=== PATIENT | male | born 1965 | race Caucasian/White ===

== ENCOUNTER 2021-03-22 09:26 | Inpatient (IN) ==
[2021-03-22] MEDS ORDERED: dexAMETHasone**PF** 10 MG/ML VIAL IV ONE (10:25)
[2021-03-22] MEDS ORDERED: ALBUT/IPRATROP 3MG/0.5MG NEB 3 ML VIAL INH STA (10:25)
[2021-03-22] MEDS ORDERED: SODIUM CHLORIDE 0.9% 1000ML 1,000 ML IV SCH ×2 (10:30→14:30)
--- NOTE | 2021-03-22 10:47 | XRay Report ---
XR chest 1V portable CLINICAL HISTORY: Dyspnea. COMPARISON STUDY: No previous studies for comparison. TECHNIQUE: 1 view of the chest FINDINGS: Single frontal view of the chest demonstrates the cardiomediastinal silhouette to be within normal li mits. Patchy interstitial and alveolar opacities are present bilaterally. The findings are most chicho cteristic of a viral type pneumonitis. Covid 19 pneumonia should be excluded. There is no evidence fo r pleural effusion. There is no evidence for vascular congestion. There is no acute osseous pathology . IMPRESSION: Patchy interstitial and alveolar opacities bilaterally characteristic of a viral type pne umonitis and probable Covid 19 pneumonia. ACT 112: Negative or not required by law. Electronically signed by: Ronald Antoine M.D. 03/22/2021 10:46 AM
[2021-03-22 11:28] LABS: Basophils # (auto) 0.02 K/uL (0-0.2); Basophils % (auto) 0.4 %; Hematocrit (blood only) 41.6 % (42-52); Immature Granulocytes # (auto) 0.03 K/uL (0.00-0.02); Immature Granulocytes % (auto) 0.6 %; Lymphocytes # (auto) 0.85 K/uL (1.2-3.4); Lymphocytes % (auto) 16.1 %; Mean Corpuscular Hemoglobin 30.4 pg (25-34); Mean Corpuscular Hgb Conc 36.1 g/dL (32-36); Mean Corpuscular Volume 84.4 fL (80-100); Monocytes % (auto) 11.4 %; Neutrophils # (auto) 3.78 K/uL (1.4-6.5); Neutrophils % (auto) 71.5 %; Platelet Count 143 K/uL (130-400); RDW Coefficient of Variation 13.6 % (11.5-14.5); RDW Standard Deviation 41.8 fL (36.4-46.3); Red Blood Count 4.93 M/uL (4.7-6.1); White Blood Count 5.28 K/uL (4.8-10.8)
[2021-03-22 11:44] LABS: Influenza A virus by PCR Negative (Negative); Influenza B virus by PCR Negative (Negative)
[2021-03-22 11:45] LABS: Partial Thromboplastin Ratio 1.3; Partial Thromboplastin Time 33.2 Seconds (21.0-31.0); Prothrombin Time 9.9 Seconds (9.0-12.0)
[2021-03-22 11:46] LABS: Albumin Level 3.1 gm/dl (3.4-5.0); BUN Creatinine Ratio 14.6 (10-20); Calcium 8.7 mg/dl (8.5-10.1); Creatinine Clr Calc Pharmacy 42.6 ml/min; Est GFR (African American) 41.1 ml/min; Est GFR (Non-African American) 35.5 ml/min; Magnesium 2.4 mg/dl (1.8-2.4); Potassium 3.6 mmol/L (3.5-5.1)
[2021-03-22 11:51] LABS: Albumin Globulin Ratio 0.6 (0.9-2); Bilirubin,Total 0.6 mg/dl (0.2-1); Globulin 5.1 gm/dl (2.5-4.0); Total Protein 8.2 gm/dl (6.4-8.2); Troponin I 0.02 ng/ml (0-0.045)
[2021-03-22] MEDS ORDERED: OPTIRAY 320 125ml IV ONE (12:48)
--- NOTE | 2021-03-22 13:04 | CT Scan Report ---
CT angio chest PE protocol CT DOSE: 541.70 mGycm HISTORY: 55 years-old Male with Dyspnea. Acute shortness of breath. COVID Positive. TECHNIQUE: Multiple CTA images of the chest were obtained after the intravenous administration of 120 ml Optiray. Coronal and sagittal MIPS were obtained from the axial data set and were submitted for review. All measurements were obtained according to NASCET criteria. A dose lowering technique was u tilized adhering to the principles of ALARA. COMPARISON: Chest radiograph of same day FINDINGS: CTA: Moderate cardiomegaly. No pericardial effusion. No thoracic aortic aneurysm or dissection. The segmen gerardo and subsegmental branches of the pulmonary arterial tree are suboptimally evaluated secondary to respiratory motion artifact. No pulmonary emboli identified. CT CHEST: Normal thyroid. Calcified right hilar lymph nodes. There are a few mediastinal lymph nodes which rogerio ure nipple limits of normal at 9-10 mm, likely reactive. Trace pleural effusions. No pneumothorax. Ex tensive bilateral peripheral predominant groundglass and consolidative opacities with bibasilar air b ronchograms. No suspicious pulmonary nodules or masses identified. The central airways are patent. Postoperative changes of the right upper abdominal retroperitoneum. Hepatic steatosis. Unremarkable s oft tissues. There is no acute fracture. IMPRESSION: 1. Cardiomegaly without pulmonary emboli. 2. Extensive bilateral pulmonary opacities compatible with viral pneumonia. 3. Mild reactive mediastinal adenopathy. 4. Hepatic steatosis. ACT 112: Negative or not required by law. The above report was generated using voice recognition software. It may contain grammatical, syntax o r spelling errors. Electronically signed by: Ashwin Calhoun M.D. 03/22/2021 1:02 PM
--- NOTE | 2021-03-22 14:23 | History & Physical Report ---
Date of Service March 22, 2021 Assessment & Plan (1) Pneumonia due to 2019 novel coronavirus: (2) Acute respiratory failure with hypoxia: Plan: #. Acute hypoxic respiratory failure #. COVID-19 #. Community-acquired pneumonia Patient not on home oxygen, not vaccinated against Covid, signs and symptoms since 16 days. Patient complains of productive cough with yellow sputum. Patient requiring BiPAP alternating with high flow nasal cannula oxygen. Admitting pro-Bunny positive. Admitting CTA chest: No PE, extensive bilateral pulmonary opacities. Not a candidate for remdesivir, continue with dexamethasone 03/22 Proning as able, incentive spirometry, flutter valve, Lasix as needed to keep him on yolk spray drier side, BNP Pulmonology consult, since increased respiratory rate/increased work of breathing, likely may need intubation Continue with high flow nasal cannula oxygen alternating with BiPAP We will start him on azithromycin and Rocephin in the line of pneumonia. Follow-up with blood culture. Follow clinically. 2. JOHNNA unknown baseline, unknown if h/o CKD gentle hydration, BNP 124 Monitor BMP daily, if uptrending consider nephrology consult 3. Steatosis 4. Transminitis Transaminitis likely secondary to Covid, no belly pain per patient. Monitor daily, consider GI consult if uptrending. DVT prophylaxis: On Heparin given JOHNNA component. Can change to enoxaparin once JOHNNA resolves. History of Present Illness Chief Complaint: Geovanni DEWEY Primary Care Provider: SHEA Juarez 55-year-old male with PMH of psoriasis, no other significant past medical history presented to our ED 03/22 from [place] inmate with complaint of worsening shortness of breath. Per patient he has had respiratory symptoms with cough and runny nose since 16 days. It seems like he was treated for pneumonia with amoxicillin as an outpatient prior to admission. But since last to 3 days, patient complains of worsening shortness of breath. He also reports a fever over the night associated with sweating. Patient also reports headache. Denies any chest pain/belly pain/palpitations/pain or burning while passing urine/nausea/vomiting/acute changes in his bowel movements/other review of symptoms. Patient denies smoking tobacco, denies consumption of alcohol and use of recreational drugs. 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 No family history of cancer or clot or heart disease per patient. No personal history of clot or heart attack. Allergies Allergy/AdvReac Type Severity Reaction Status Date / Time No Known Allergies Allergy Unverified 03/22/21 10:23 Home Medications Medication Instructions Recorded Confirmed Type amoxicillin 500 mg capsule 500 mg PO TID 03/22/21 03/22/21 History Past Med/Surg History Medical History Patient denies medical problems Psoriasis Family History (Updated 03/22/21 @ 16:23 by Luis Mitchell PA-C) Other Family history non-contributory Social History Smoking Status: Never smoker Second Hand Exposure: No; Do You Dip or Chew Tobacco: No; Hx Alcohol Use: No Hx Substance Use: No Preferred Language: French Communication Ability Comment: 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) Vital Signs (Past 12 Hours) Vital Signs Temp Pulse Resp BP Pulse Ox 03/22/21 14:00 113 H 31 H 140/84 95 03/22/21 13:30 112 H 40 H 139/82 94 03/22/21 13:00 111 H 34 H 138/84 95 03/22/21 12:53 11 L 28 H 98 03/22/21 12:30 107 H 37 H 130/73 94 03/22/21 12:00 106 H 18 90 03/22/21 11:30 72 42 H 140/62 95 03/22/21 11:13 83 45 H 93 03/22/21 11:00 74 44 H 131/85 93 03/22/21 10:58 18 92 03/22/21 10:30 74 38 H 116/75 93 03/22/21 10:00 79 44 H 121/77 94 03/22/21 09:38 37.1 C 78 45 H 137/82 93 11/24/21 09:34 85 40 H 84 L Code Status & VTE Plan VTE Prophylaxis Plan VTE Prophylaxis will be ordered: Yes
--- NOTE | 2021-03-22 15:10 | Emergency Department Note ---
Impression & Plan Pneumonia due to 2019 novel coronavirus ED Provider Note CHIEF COMPLAINT: Shortness of breath, Covid exposure HISTORY OF PRESENT ILLNESS: This 55-year-old male patient presents to the emergency department from the [facility] with complaints of shortness of breath. The patient states he has had a Covid exposure. He developed symptoms approximately 2 weeks ago but over the last 2 days has developed significant shortness of breath. He states he is not vaccinated against Covid or influenza. He has been having fevers, particularly at night and sweating through the bed. He was placed on oxygen yesterday. Today he has noticed some increased work of breathing and rapid respiratory rate. He has been sent to the emergency department for further evaluation. Patient denies any past medical history. REVIEW OF SYSTEMS: A review of systems was performed with positives and pertinent negatives listed in the history of present illness. 10 systems were reviewed and are otherwise negative. ALLERGIES: see below MEDICATIONS: see below PMH: see below SOCIAL HISTORY: see below DDx: Reactive airway disease, Covid, pneumonia, pneumothorax, COPD, CHF, infections, cardiac ischemia, pulmonary embolism, musculoskeletal, gastrointestinal, as well as other pathologies. PHYSICAL EXAM: Vital signs reviewed. General: Acutely ill-appearing 55-year-old male, in no significant distress. HEENT: No scleral icterus, PERRLA, neck supple. Dry mucous membranes Cardiovascular: Regular rate and rhythm, no extra sounds. Pulmonary: Diminished breath sounds bilaterally, crackles to auscultation bilaterally, increased work of breathing. On oxygen mask Abdomen: Soft, nontender, nondistended, positive bowel sounds. Musculoskeletal: Atraumatic, no peripheral edema. Neurologic: Patient awake alert and oriented x 3 Skin: Warm, dry, no rash EMERGENCY DEPARTMENT COURSE/MDM: This patient was evaluated and appeared to be in no significant distress. IV access was obtained and laboratory work was drawn. The patient was placed on a geothermal plant manager and noted to be in a NSR at 78 bpm. Pt's oxygen sats have remained stable on oxymask at 12 L/min. CXR confirms a bilateral patchy PNA. COVID swab is positive. CT chest was performed and is negative for PE. Pt was given IV dexamethazone 6 mg, a duoneb tx and eventually required bipap d/t labored breathing and fatigue. Pt was d/w the hospitalist service for further management. MONITORING: An order for cardiac monitoring was placed and the patient is noted to be in a NSR at 78 beats per minute. RADIOLOGY: see below EKG:NSR at 76 bpm, incomplete RBBB, LAF block, no PVC, no PAC, normal ST segments. QTc 459. DISPOSITION:admit I have personally spent 45 minutes of critical care time in the direct management of this patient. This was a life/limb threatening event. This 45 minutes is in excess of all separately billable procedures. Past Med/Surg History Medical History (Updated 03/22/21 @ 15:10 by Torie Hogue MD) Patient denies medical problems Social History (Updated 03/22/21 @ 15:09 by Torie Hogue MD) Smoking Status: Former smoker Preferred Language: Tamazight Current Living Situation Comment: Skilled Nursing Feels Safe at Home: Yes Allergies Allergies Allergy/AdvReac Type Severity Reaction Status Date / Time No Known Allergies Allergy Unverified 03/22/21 10:23 Home Meds Home Medications Medication Instructions Recorded Confirmed amoxicillin 500 mg capsule 500 mg PO TID 03/22/21 03/22/21 Results & Data (ED) Vital Signs Vital Signs - 24 hr 03/22/21 09:34 03/22/21 09:38 03/22/21 10:00 Temperature 37.1 C Temperature Source Oral Pulse Rate 85 78 79 Pulse Rate from SpO2 Sensor 85 80 Pulse Rhythm Regular Pulse Strength Normal Respiratory Rate 40 H 45 H 44 H Respiratory Effort / Characteristics Labored Respiratory Depth Shallow Respiratory Pattern Regular Blood Pressure 137/82 121/77 Blood Pressure Mean 100 91 Blood Pressure Position Sitting Pulse Oximetry 84 L 93 94 Oxygen Delivery Method Oxymask Oxygen Flow Rate 12 Fraction of Inspired Oxygen Sepsis Recent Fever Within 48 Hours Yes Sepsis New/Unexplained Change in Mental Status No Sepsis Action Taken by Nursing No Action Required 03/22/21 10:30 03/22/21 10:58 03/22/21 11:00 Temperature Temperature Source Pulse Rate 74 74 Pulse Rate from SpO2 Sensor 74 74 Pulse Rhythm Pulse Strength Respiratory Rate 38 H 18 44 H Respiratory Effort / Characteristics Non-Labored Spontaneous Respiratory Depth Respiratory Pattern Blood Pressure 116/75 131/85 Blood Pressure Mean 88 100 Blood Pressure Position Pulse Oximetry 93 92 93 Oxygen Delivery Method Oxymask Oxygen Flow Rate 13 Fraction of Inspired Oxygen Sepsis Recent Fever Within 48 Hours Sepsis New/Unexplained Change in Mental Status Sepsis Action Taken by Nursing 03/22/21 11:13 03/22/21 11:30 03/22/21 12:00 Temperature Temperature Source Pulse Rate 83 72 106 H Pulse Rate from SpO2 Sensor 79 106 H Pulse Rhythm Regular Pulse Strength Respiratory Rate 45 H 42 H 18 Respiratory Effort / Characteristics Respiratory Depth Respiratory Pattern Blood Pressure 140/62 Blood Pressure Mean 88 Blood Pressure Position Pulse Oximetry 93 95 90 Oxygen Delivery Method Oxymask Oxygen Flow Rate 12 Fraction of Inspired Oxygen Sepsis Recent Fever Within 48 Hours Sepsis New/Unexplained Change in Mental Status Sepsis Action Taken by Nursing 03/22/21 12:30 03/22/21 12:53 03/22/21 13:00 Temperature Temperature Source Pulse Rate 107 H 11 L 111 H Pulse Rate from SpO2 Sensor 107 H 111 H Pulse Rhythm Pulse Strength Respiratory Rate 37 H 28 H 34 H Respiratory Effort / Characteristics Spontaneous Respiratory Depth Normal Respiratory Pattern Regular Blood Pressure 130/73 138/84 Blood Pressure Mean 92 102 Blood Pressure Position Pulse Oximetry 94 98 95 Oxygen Delivery Method BiPAP BiPAP Oxygen Flow Rate Fraction of Inspired Oxygen 40 Sepsis Recent Fever Within 48 Hours Sepsis New/Unexplained Change in Mental Status Sepsis Action Taken by Nursing 03/22/21 13:30 03/22/21 14:00 Temperature Temperature Source Pulse Rate 112 H 113 H Pulse Rate from SpO2 Sensor 113 H 113 H Pulse Rhythm Pulse Strength Respiratory Rate 40 H 31 H Respiratory Effort / Characteristics Respiratory Depth Respiratory Pattern Blood Pressure 139/82 140/84 Blood Pressure Mean 101 102 Blood Pressure Position Pulse Oximetry 94 95 Oxygen Delivery Method Oxygen Flow Rate Fraction of Inspired Oxygen Sepsis Recent Fever Within 48 Hours Sepsis New/Unexplained Change in Mental Status Sepsis Action Taken by Assisted Medications Current Medication List: was personally reviewed by me Laboratory Data Attestation: I reviewed the patient's lab results. Result diagrams: 03/22/21 10:58 03/22/21 10:58 Lab Results 03/22/21 03/22/21 03/22/21 Range/Units 10:50 10:50 10:58 WBC 5.28 (4.8-10.8) K/uL RBC 4.93 (4.7-6.1) M/uL Hgb 15.0 (14.0-18.0) g/dL Hct 41.6 L (42-52) % MCV 84.4 (80-100) fL MCH 30.4 (25-34) pg MCHC 36.1 H (32-36) g/dL RDW Std Deviation 41.8 (36.4-46.3) fL RDW Coeff of Emmy 13.6 (11.5-14.5) % Plt Count 143 (130-400) K/uL MPV 10.0 (7.4-10.4) fL Immature Gran % (Auto) 0.6 % Neut % (Auto) 71.5 % Lymph % (Auto) 16.1 % [place] % (Auto) 11.4 % Eos % (Auto) 0.0 % Baso % (Auto) 0.4 % Neut # (Auto) 3.78 (1.4-6.5) K/uL Lymph # (Auto) 0.85 L (1.2-3.4) K/uL [place] # (Auto) 0.60 H (0.11-0.59) K/uL Eos # (Auto) 0.00 (0-0.5) K/uL Baso # (Auto) 0.02 (0-0.2) K/uL Immature Gran # (Auto) 0.03 H (0.00-0.02) K/uL PT (9.0-12.0) Seconds INR (0.9-1.1) APTT (21.0-31.0) Seconds PTT Ratio Sodium (136-145) mmol/L Potassium (3.5-5.1) mmol/L Chloride (98-107) mmol/L Carbon Dioxide (21-32) mmol/L Anion Gap (3-11) BUN (7-18) mg/dl Creatinine (0.6-1.4) mg/dl Est Cr Clr Drug Dosing ml/min Est GFR ( Amer) ml/min Est GFR (Non-Af Amer) ml/min BUN/Creatinine Ratio (10-20) Glucose (70-99) mg/dl Calcium (8.5-10.1) mg/dl Magnesium (1.8-2.4) mg/dl Total Bilirubin (0.2-1) mg/dl AST (15-37) U/L ALT (12-78) U/L Alkaline Phosphatase (45-117) U/L Troponin I (0-0.045) ng/ml NT-Pro-B Natriuret Pep (0-900) pg/ml Total Protein (6.4-8.2) gm/dl Albumin (3.4-5.0) gm/dl Globulin (2.5-4.0) gm/dl Albumin/Globulin Ratio (0.9-2) SARS-CoV-2 (PCR) POSITIVE A* (Negative) Influ A Molecular Assay Negative (Negative) Influ B Molecular Assay Negative (Negative) 03/22/21 03/22/21 03/22/21 Range/Units 10:58 10:58 10:58 WBC (4.8-10.8) K/uL RBC (4.7-6.1) M/uL Hgb (14.0-18.0) g/dL Hct (42-52) % MCV (80-100) fL MCH (25-34) pg MCHC (32-36) g/dL RDW Std Deviation (36.4-46.3) fL RDW Coeff of Emmy (11.5-14.5) % Plt Count (130-400) K/uL MPV (7.4-10.4) fL Immature Gran % (Auto) % Neut % (Auto) % Lymph % (Auto) % [place] % (Auto) % Eos % (Auto) % Baso % (Auto) % Neut # (Auto) (1.4-6.5) K/uL Lymph # (Auto) (1.2-3.4) K/uL [place] # (Auto) (0.11-0.59) K/uL Eos # (Auto) (0-0.5) K/uL Baso # (Auto) (0-0.2) K/uL Immature Gran # (Auto) (0.00-0.02) K/uL PT 9.9 (9.0-12.0) Seconds INR 1.0 (0.9-1.1) APTT 33.2 H (21.0-31.0) Seconds PTT Ratio 1.3 Sodium 138 (136-145) mmol/L Potassium 3.6 (3.5-5.1) mmol/L Chloride 105 (98-107) mmol/L Carbon Dioxide 25 (21-32) mmol/L Anion Gap 8.0 (3-11) BUN 30 H (7-18) mg/dl Creatinine 2.06 H (0.6-1.4) mg/dl Est Cr Clr Drug Dosing 42.6 ml/min Est GFR ( Amer) 41.1 ml/min Est GFR (Non-Af Amer) 35.5 ml/min BUN/Creatinine Ratio 14.6 (10-20) Glucose 113 H (70-99) mg/dl Calcium 8.7 (8.5-10.1) mg/dl Magnesium 2.4 (1.8-2.4) mg/dl Total Bilirubin 0.6 (0.2-1) mg/dl AST 256 H (15-37) U/L ALT 150 H (12-78) U/L Alkaline Phosphatase 65 (45-117) U/L Troponin I 0.020 (0-0.045) ng/ml NT-Pro-B Natriuret Pep 124 (0-900) pg/ml Total Protein 8.2 (6.4-8.2) gm/dl Albumin 3.1 L (3.4-5.0) gm/dl Globulin 5.1 H (2.5-4.0) gm/dl Albumin/Globulin Ratio 0.6 L (0.9-2) SARS-CoV-2 (PCR) (Negative) Influ A Molecular Assay (Negative) Influ B Molecular Assay (Negative) Administered Medications Discontinued Medications Albuterol (Albut/Ipratrop 3mg/0.5mg Neb 3 Ml Vial) 12 ml INH ONE STA Stop: 03/22/21 10:26 Last Admin: 03/22/21 10:54 Dose: 12 ml Documented by: [id number] Dexamethasone Sodium Phosphate (DexamethasonePf 10 Mg/Ml Vial) 6 mg IV NOW ONE Stop: 03/22/21 10:26 Last Admin: 03/22/21 11:03 Dose: 6 mg Documented by: [id number] Sodium Chloride (Nss 1000ml) 1,000 mls @ 999 mls/hr IV .Q1H1M TITI Stop: 03/22/21 11:30 Last Infusion: 03/22/21 12:03 Dose: 0 mls/hr Documented by: [id number] Admin: 03/22/21 11:02 Dose: 999 mls/hr Documented by: [id number] Ioversol (Optiray 320 125ml) 120 ml IV ONCE ONE Stop: 03/22/21 12:49 Last Admin: 03/22/21 12:42 Dose: 120 ml Documented by: [id number] Imaging Data Radiologist's Impression: Chest CTA 03/22/21 10:25 CT angio chest PE protocol CT DOSE: 541.70 mGycm HISTORY: 55 years-old Male with Dyspnea. Acute shortness of breath. COVID Positive. TECHNIQUE: Multiple CTA images of the chest were obtained after the intravenous administration of 120 ml Optiray. Coronal and sagittal MIPS were obtained from the axial data set and were submitted for review. All measurements were obtained according to NASCET criteria. A dose lowering technique was utilized adhering to the principles of ALARA. COMPARISON: Chest radiograph of same day FINDINGS: CTA: Moderate cardiomegaly. No pericardial effusion. No thoracic aortic aneurysm or dissection. The segmental and subsegmental branches of the pulmonary arterial tree are suboptimally evaluated secondary to respiratory motion artifact. No pulmonary emboli identified. CT CHEST: Normal thyroid. Calcified right hilar lymph nodes. There are a few mediastinal lymph nodes which measure nipple limits of normal at 9-10 mm, likely reactive. Trace pleural effusions. No pneumothorax. Extensive bilateral peripheral predominant groundglass and consolidative opacities with bibasilar air bronchograms. No suspicious pulmonary nodules or masses identified. The central airways are patent. Postoperative changes of the right upper abdominal retroperitoneum. Hepatic steatosis. Unremarkable soft tissues. There is no acute fracture. IMPRESSION: 1. Cardiomegaly without pulmonary emboli. 2. Extensive bilateral pulmonary opacities compatible with viral pneumonia. 3. Mild reactive mediastinal adenopathy. 4. Hepatic steatosis. ACT 112: Negative or not required by law. The above report was generated using voice recognition software. It may contain grammatical, syntax or spelling errors. Electronically signed by: Ashwin Calhoun M.D. 03/22/2021 1:02 PM Chest X-Ray 03/22/21 10:25 XR chest 1V portable CLINICAL HISTORY: Dyspnea. COMPARISON STUDY: No previous studies for comparison. TECHNIQUE: 1 view of the chest FINDINGS: Single frontal view of the chest demonstrates the cardiomediastinal silhouette to be within normal limits. Patchy interstitial and alveolar opacities are present bilaterally. The findings are most characteristic of a viral type pneumonitis. Covid 19 pneumonia should be excluded. There is no evidence for pleural effusion. There is no evidence for vascular congestion. There is no acute osseous pathology. IMPRESSION: Patchy interstitial and alveolar opacities bilaterally characteristic of a viral type pneumonitis and probable Covid 19 pneumonia. ACT 112: Negative or not required by law. Electronically signed by: Ronald Antoine M.D. 03/22/2021 10:46 AM Blood Pressure Blood Pressure Findings: Elevated blood pressure Blood Pressure Disposition: Referred to patients primary care provider Discharge Plan Visit Data Chief Complaint: Shortness of Breath/Dyspnea ED Provider: Torie Hogue Discharge Problem: Pneumonia due to 2019 novel coronavirus Forms Stand Alone Forms: My [place] Prescriptions Prescriptions: No Action amoxicillin 500 mg Capsule 500 mg PO TID RF: 0 Referrals Referrals: Larry VALDIVIA [Primary Care Provider] -
--- NOTE | 2021-03-22 16:32 | Pulmonary Consultation ---
Date of Consultation March 22, 2021 Assessment & Plan (1) Hypoxia: (2) Pneumonia due to 2019 novel coronavirus: Attending: Dr. Arita Impression: This is a 55-year-old male from [place]. He has been in [facility] for 39 years. He is currently incarcerated at [facility]. The patient developed shortness of breath and had symptoms approximately 16 days ago. He has been circulating with the other prisoners on a social basis. He does have one cellmate. He spends most of his time in his cell. He denies that his other cellmate is sick. He has had multiple swabs for Covid in the past was never told there were positive. He has no tobacco abuse history. Patient reports a progressive shortness of breath over the last 2 to 3 days. He is brought to the hospital for evaluation and found to have multifocal opacities on CT scan of the chest. Patient does have evidence of cardiomegaly on the CT scan but no evidence of pulmonary emboli. Patient denies any prior history of thrombolic disease. He is not aware that his family members have had any clotting histories in the past. Recommendations: 1. COVID-19/ARDs: * Patient with significant opacities on CT scan of the chest representing viral illness. * Patient was initially put on BiPAP but does better with high flow oxygen. He is currently 50 L/min with an FiO2 of 60% and saturating at 94%. * Initially patient was thought that he would need endotracheal intubation with mechanical ventilation secondary to tachypnea. His respiratory rate has improved slightly with the use of high flow * Patient had initial symptoms 16 days ago. Not sure that there is much role for remdesivir. In addition, patient has elevated LFTs disqualifying him for remdesivir or immunoglobulins * Would recommend dexamethasone 6 mg IV daily * Patient will need airborne precautions for positive COVID-19 findings * Incomplete data - will order CRP, ferritin, procalcitonin 2. Hypoxia: * Patient denies any history of tobacco abuse * Patient with no history of pulmonary disease * Patient denies any previous history of malignancy * Patient does have psoriasis but has not been tested for any other autoimmune disorders * No eosinophils are noted on differential from CBC * Treat underlying Covid 3. DVT prophylaxis: * No contraindication for chemical prophylaxis. Would recommend enoxaparin per Covid protocol Thank you for including us in the care of this patient. Please refer to Dr. Arita's addendum for further recommendations. The pulmonary service will continue to follow this patient during this hospital stay. Should be noted that the iPad was used for infrastructure technician service. Coroner for infrastructure technician was named Cristiane. She was sent to documented report to [facility] of our conversation. The patient stated that all questions were answered to his satisfaction. Turkish is limited to the point where infrastructure technician services are needed. As directed by Dr. Arita to discuss intubation and tracheostomy with the patient. Consent was obtained in the event that this is needed. Yuri Neumann from respiratory therapy was present and will witnessed the consent. Consent was obtained with the services of the infrastructure technician. History of Present Illness Reason for Consultation: Covid/ARDs Requesting Physician: Dr. Nelia Casey Attending Physician: Maria Esther Casey MD History of Present Illness Attending: Dr. Arita This is a 55-year-old male from [place]. He moved to [facility] 39 years ago. He speaks very little Turkish. He has been incarcerated for the past 4 years. Release date of 2022. The patient is an inmate at [facility] and is on the nonvaccinated cellblock. Patient has no significant past medical history other than psoriasis. He expressly denies pulmonary disease, hypertension, diabetes. Due to the patient's limited ability to speak Turkish, the infrastructure technician service was used. Our infrastructure technician was Cristiane. I had a lengthy discussion with the patient through the infrastructure technician. At the completion of the session, the patient stated that all questions were answered to his satisfaction. I emphasized to the patient that the infrastructure technician services available and encouraged him to let us know if he had further questions or needed clarification of any further. Patient reports that he began with symptoms approximately 16 days ago. He has been swabbed for Covid on a regular basis but was never told his results. He assumes that they were negative. He has a cellmate and is able to walk freely in the cell talking to other people. Most of the time his confinement to his ce ll with little other interaction. His cellmate at this time is not sick. The patient denies any other sick contacts. He has not had any visits at the present from the outside but has spoken to family by phone per half-way policy. The patient states that his shortness of breath has been progressive. He now has a cough which is nonproductive. He states that he has had fever and sweats. He denies any rigors. He has never had any kind of illness requiring mechanical ventilation in the past. He has no other significant illness history. He grew up in the country of [place] and denies any exposure to tuberculosis or active tuberculosis disease. He is not vaccinated for Covid. While the patient does have shortness of breath, he denies any chest pain or back pain. He has no diarrhea. He denies nausea or vomiting. He has dyspnea with exertion as well as conversational dyspnea. Deep inspiration results in cough that is nonproductive. He was tried on BiPAP initially 12/6 and did not tolerate it. He was eventually changed to 8/5 and tolerated it with saturations in the low to mid 90s but elevated respiratory rate in the 30s. Patient was changed to high flow oxygen and saturates well with 50 L/min and an FiO2 of 60%. The patient has no other complaints. The patient denies any history of tobacco use. He denies any illicit drug use. He denies any ethanol use. The patient is and . He does not know how to contact his estranged . He request that all contact for consent be made with his daughter in the event that he cannot make decisions on his own. Allergies Allergy/AdvReac Type Severity Reaction Status Date / Time No Known Allergies Allergy Unverified 03/22/21 10:23 Home Medications Medication Instructions Recorded Confirmed Type amoxicillin 500 mg capsule 500 mg PO TID 03/22/21 03/22/21 History Patient History Medical History Patient denies medical problems Psoriasis Family History (Updated 03/22/21 @ 16:23 by Luis Mitchell PA-C) Other Family history non-contributory Social History Smoking Status: Never smoker Second Hand Exposure: No; Do You Dip or Chew Tobacco: No; Hx Alcohol Use: No Hx Substance Use: No Preferred Language: Luxembourgish Communication Ability Comment: Car Salesman service is needed with the language line quality control technician Communication Tools: IPad and Language Line Environmental Journalist Visual Impairment: No Limitations Hearing Ability: Normal Environmental Journalist Required: Yes marital status: Legally Current Living Situation: Other Current Living Situation Comment: Residential How many Children do You have: 1 Feels Safe at Home: Yes Assistive Devices: None Review of Systems Review of Systems: All systems reviewed & are unremarkable except as noted in Subjective Physical Exam Physical Exam: GENERAL : No acute distress. Use of accessory muscles with breathing EYES: No icterus, gaze conjugate NOSE: No evidence of epistaxis MOUTH: No lesions or candidiasis NECK: Supple LUNGS: Breath sounds diminished. No overt bronchospasm or rhonchi. Patient does have some minimal bibasilar rales. HEART: Regular, tachycardic with a rate in the low 100s at the time of my examination ABDOMEN: Soft, NT, ND, BS Present. No rebound tenderness. No guarding. EXTREMITIES: No LE edema, pedal pulses intact and equal bilaterally NEURO: A&OX3. No appreciation of any focal neurological deficits. Results & Data Results & Data ([facility]) Vital Signs (Past 12 Hours) Vital Signs Temp Pulse Pulse Resp BP BP Pulse Ox 03/22/21 16:07 107 H 24 95 03/22/21 15:00 108 H 31 H 140/86 95 03/22/21 14:00 113 H 31 H 140/84 95 03/22/21 13:30 112 H 40 H 139/82 94 03/22/21 13:00 111 H 34 H 138/84 95 03/22/21 12:53 11 L 28 H 98 03/22/21 12:30 107 H 37 H 130/73 94 03/22/21 12:00 106 H 18 90 03/22/21 11:30 72 42 H 140/62 95 03/22/21 11:13 83 45 H 93 03/22/21 11:00 74 44 H 131/85 93 03/22/21 10:58 18 92 03/22/21 10:30 74 38 H 116/75 93 03/22/21 10:00 79 44 H 121/77 94 03/22/21 09:38 37.1 C 78 45 H 137/82 93 03/22/21 09:34 85 40 H 84 L Laboratory Results 03/22/21 10:58 03/22/21 10:58 03/22/21 10:58 Troponin I 0.020 COVID-19 Results 03/22/21 10:50 SARS-CoV-2 (PCR) POSITIVE A* Diagnostic Findings Chest CTA 03/22/21 10:25 CT angio chest PE protocol CT DOSE: 541.70 mGycm HISTORY: 55 years-old Male with Dyspnea. Acute shortness of breath. COVID Positive. TECHNIQUE: Multiple CTA images of the chest were obtained after the intravenous administration of 120 ml Optiray. Coronal and sagittal MIPS were obtained from the axial data set and were submitted for review. All measurements were obtained according to NASCET criteria. A dose lowering technique was utilized adhering to the principles of ALARA. COMPARISON: Chest radiograph of same day FINDINGS: CTA: Moderate cardiomegaly. No pericardial effusion. No thoracic aortic aneurysm or dissection. The segmental and subsegmental branches of the pulmonary arterial tree are suboptimally evaluated secondary to respiratory motion artifact. No pulmonary emboli identified. CT CHEST: Normal thyroid. Calcified right hilar lymph nodes. There are a few mediastinal lymph nodes which measure nipple limits of normal at 9-10 mm, likely reactive. Trace pleural effusions. No pneumothorax. Extensive bilateral peripheral predominant groundglass and consolidative opacities with bibasilar air bronchograms. No suspicious pulmonary nodules or masses identified. The central airways are patent. Postoperative changes of the right upper abdominal retroperitoneum. Hepatic steatosis. Unremarkable soft tissues. There is no acute fracture. IMPRESSION: 1. Cardiomegaly without pulmonary emboli. 2. Extensive bilateral pulmonary opacities compatible with viral pneumonia. 3. Mild reactive mediastinal adenopathy. 4. Hepatic steatosis. ACT 112: Negative or not required by law. The above report was generated using voice recognition software. It may contain grammatical, syntax or spelling errors. Electronically signed by: Ashwin Calhoun M.D. 03/22/2021 1:02 PM Chest X-Ray 03/22/21 10:25 XR chest 1V portable CLINICAL HISTORY: Dyspnea. COMPARISON STUDY: No previous studies for comparison. TECHNIQUE: 1 view of the chest FINDINGS: Single frontal view of the chest demonstrates the cardiomediastinal silhouette to be within normal limits. Patchy interstitial and alveolar opacities are present bilaterally. The findings are most characteristic of a viral type pneumonitis. Covid 19 pneumonia should be excluded. There is no evidence for pleural effusion. There is no evidence for vascular congestion. There is no acute osseous pathology. IMPRESSION: Patchy interstitial and alveolar opacities bilaterally characteristic of a viral type pneumonitis and probable Covid 19 pneumonia. ACT 112: Negative or not required by law. Electronically signed by: Ronald Antoine M.D. 03/22/2021 10:46 AM PG Care Time/CCT Total # of Minutes Spent Total Time Spent with Patient: Total time spent is greater than 50% in coordination of care (as documented) at patient's floor/unit and/or counseling patient: Coding Level of Care Code 05514 Inpt Consult Level 5 Diagnoses Hypoxia R09.02 Pneumonia due to 2019 novel coronavirus U07.1; J12.82 Time Spent (min) 70 Comment 70 minutes including three visits and use of infrastructure technician service
[2021-03-22 17:32] LABS: C Reactive Protein 11.5 mg/dl (0-0.29); Ferritin 959.9 ng/ml (8-388)
[2021-03-22] MEDS ORDERED: AZITHROMYCIN 500 MG in DEXTROSE 5% 250 ML IV ONE (21:00)
[2021-03-22] MEDS ORDERED: MoRPHine SULFATE 2 MG/ML CARP IV STA (21:55)
[2021-03-23] MEDS: HEPARIN SOD 5,000 UNIT/0.5 ML VIAL SQ SCH ×4 (00:20→21:07)
[2021-03-23] MEDS ORDERED: LORazepam 0.5 MG TAB PO STA (03:07)
--- NOTE | 2021-03-23 06:47 | Electrocardiogram Report ---
Test Reason : Blood Pressure : / mmHG Vent. Rate : 076 BPM Atrial Rate : 076 BPM P-R Int : 172 ms QRS Dur : 110 ms QT Int : 408 ms P-R-T Axes : 036 -48 -13 degrees QTc Int : 459 ms Normal sinus rhythm Incomplete right bundle branch block Left anterior fascicular block Abnormal ECG No previous ECGs available Confirmed by Christian Tejada ([id number]) on 03/23/2021 6:47:12 AM Referred By: Larry VALDIVIA Confirmed By:Christian Tejada
[2021-03-23 07:22] LABS: Hematocrit (blood only) 39.9 % (42-52); Hemoglobin 14.2 g/dL (14.0-18.0); Mean Corpuscular Hemoglobin 30.2 pg (25-34); Mean Corpuscular Hgb Conc 35.6 g/dL (32-36); Mean Corpuscular Volume 84.9 fL (80-100); Platelet Count 174 K/uL (130-400); RDW Coefficient of Variation 13.7 % (11.5-14.5); RDW Standard Deviation 42.5 fL (36.4-46.3); White Blood Count 6.14 K/uL (4.8-10.8)
[2021-03-23] MEDS: dexAMETHasone 6 MG in SYRINGE 0 ML IV SCH (08:18)
[2021-03-23 08:19] LABS: Albumin Globulin Ratio 0.5 (0.9-2); Albumin Level 2.7 gm/dl (3.4-5.0); Bilirubin,Total 0.6 mg/dl (0.2-1); Calcium 8.6 mg/dl (8.5-10.1); Est GFR (African American) 72.4 ml/min; Est GFR (Non-African American) 62.4 ml/min; Magnesium 2.2 mg/dl (1.8-2.4); Potassium 4.4 mmol/L (3.5-5.1); Total Protein 7.7 gm/dl (6.4-8.2)
[2021-03-23] MEDS: cefTRIAXone SODIUM 2,000 MG in DEXTROSE 5% 50 ML IV SCH (08:19)
--- NOTE | 2021-03-23 12:02 | Pulmonology Progress Note ---
Date of Service March 23, 2021 Assessment & Plan (1) Hypoxia: (2) Pneumonia due to 2019 novel coronavirus: Plan: Impression: This is a 55-year-old male from [place]. He has been in [facility] for 39 years. He is currently incarcerated at [facility]. The patient developed shortness of breath and had symptoms approximately 16 days ago. He has been circulating with the other prisoners on a social basis. He does have one cellmate. He spends most of his time in his cell. He denies that his other cellmate is sick. He has had multiple swabs for Covid in the past was never told there were positive. He has no tobacco abuse history. Patient re ports a progressive shortness of breath over the last 2 to 3 days. He is brought to the hospital for evaluation and found to have multifocal opacities on CT scan of the chest. Patient does have evidence of cardiomegaly on the CT scan but no evidence of pulmonary emboli. Patient denies any prior history of thrombolic disease. He is not aware that his family members have had any clotting histories in the past. Recommendations: 1. COVID-19/ARDs: Continue dexamethasone 6 mg IV daily. The patient's LFTs are greater than 5 times upper limits of normal with AST which would exclude him from therapy with baricitinib. 2. Hypoxia: Continue high flow. If the patient should fail, could consider reattempting CPAP/BiPAP although the patient states he is very uncomfortable with this and I am not sure that he would tolerate it. Encouraged proning or decubitus positioning. BNP was normal although his x-ray did demonstrate some mild pulmonary venous congestion. We will attempt a judicious dose of Lasix today and follow clinically 3. Patient's procalcitonin was mildly elevated and cannot exclude a potential component of infectious/bacterial pneumonia. He has been on azithromycin. We will add Rocephin and trend procalcitonin over time. He is not been febrile and his white count is normal. 4. Management of the patient's other medical issues is deferred to the primary admitting service. Patient's prognosis is guarded at this point time. He certainly at risk of respiratory deterioration and need for intubation mechanical ventilation. Discussed with bedside nurse and with patient. Admission and Anticipated Discharge Date Admission Date: March 22, 2021 Subjective Patient seen and examined. Has been moved to the Covid unit. He reportedly had an episode of tachypnea and increased work of breathing with hypoxemia earlier today however when I evaluated the patient he was transitioned to high flow and appeared to be breathing comfortably with respiratory rates in the mid to high 20 range. He states he is breathing much better. Review of Systems Review of Systems: All systems reviewed & are unremarkable except as noted in Subjective Physical Exam Constitutional: WD/WN, vitals as above Neck: trachea midline, no thyromegaly Respiratory: + tachypneic; + abnormal respiratory effort and no respiratory distress Auscultation: + crackles and + wheezes Cardiovascular: RRR, no murmur, no edema Gastrointestinal (Abdomen): normal bowel sounds, soft, nontender, no hepatosplenomegaly Musculoskeletal: Extremities: extremities normal to inspection Skin: no rashes, warm and dry Neurologic: Nonfocal exam Lymphatic: no cervical lymphadenopathy Results & Data Results & Data ([facility]) Vital Signs (Past 12 Hours) Vital Signs Temp Pulse Pulse Resp BP Pulse Ox 03/23/21 11:00 69 36 H 93 03/23/21 10:30 65 28 H 92 03/23/21 10:00 79 32 H 95 03/23/21 09:00 37 C 83 44 H 133/83 95 03/23/21 08:00 36.9 C 80 20 143/82 H 91 03/23/21 07:00 67 03/23/21 04:00 76 03/23/21 03:00 37.0 C 84 26 H 121/85 92 Laboratory Results 03/23/21 06:38 03/23/21 06:38 Diagnostic Findings No new imaging PG Care Time/CCT Total # of Minutes Spent Total Time Spent with Patient: Total time spent is greater than 50% in coordination of care (as documented) at patient's floor/unit and/or counseling patient: Coding Level of Care Code 82573 Subseq Hosp Care Lvl 2 Diagnoses Hypoxia R09.02 Pneumonia due to 2019 novel coronavirus U07.1; J12.82
--- NOTE | 2021-03-23 14:37 | Hospitalist Progress Note ---
Date of Service March 23, 2021 Assessment & Plan (1) Pneumonia due to 2019 novel coronavirus: Plan: Not vaccinated Management as below (2) Acute respiratory failure with hypoxia: Plan: Due to COVID-19 virus infection Plan: #. Acute hypoxic respiratory failure #. COVID-19 #. Community-acquired pneumonia Patient not on home oxygen, not vaccinated against Covid, signs and symptoms since 16 days. Patient complains of productive cough with yellow sputum. Patient requiring BiPAP alternating with high flow nasal cannula oxygen. Increased procalcitonin and Has been on azithromycin and Rocephin Await blood culture Admitting CTA chest: No PE, extensive bilateral pulmonary opacities. Not a candidate for remdesivir, or baricitinib due to increasing LFTs Continue with dexamethasone 03/22 Proning as able, incentive spirometry, flutter valve, Lasix as needed to keep him on tobacco drier operator side, BNP Appreciate pulmonary input and recommendation Continue with high flow nasal cannula oxygen alternating with BiPAP Clinically not any better 2. JOHNNA unknown baseline, unknown if h/o CKD gentle hydration, BNP 124 Monitor BMP daily, if uptrending consider nephrology consult Creatinine has been improving 3. Steatosis 4. Transminitis Transaminitis likely secondary to Covid, no belly pain per patient. Monitor daily, consider GI consult if uptrending. Transaminitis has been improving to DVT prophylaxis: On Heparin given JOHNNA component. Can change to enoxaparin once JOHNNA resolves. Admission and Anticipated Discharge Date Admission Date: March 22, 2021 Subjective 03/23/2021 The patient was seen and examined in telemetry unit and in the Covid room He remains very shortness of breath and has not improved since admission He is on the verge of intubation Denies any pain, palpitation, any abdominal pain, nausea or vomiting Review of Systems Review of Systems: All systems reviewed and are unremarkable except as noted below Respiratory: Moderate to severe shortness of breath at rest Musculoskeletal: Generally very weak and lethargic Physical Exam Physical Exam: Lying in bed with distress secondary to shortness of breath Constitutional: well developed, well nourished, + ill appearing and average body habitus Eyes: PERRL, conjunctivae normal, anicteric sclerae ENMT: external ear and nose normal, oropharynx normal Respiratory: + respiratory distress (Moderate shortness of breath at rest) and + labored breathing Auscultation: + diminished lung sounds and + crackles (Minimal crackles at the bases) Cardiovascular: Rate/Rhythm: regular rate and regular rhythm Heart Sounds: normal S1 and normal S2; no murmur Extremities: no edema Gastrointestinal (Abdomen): Inspection/Auscultation: normal bowel sounds; abdomen not distended Percussion/Palpation: abdomen soft; abdomen nontender Musculoskeletal: No acute arthritis in any joint Neurologic: Alert, awake and oriented x3. Generally weak and lethargic Psychiatric: A+Ox3, euthymic affect Lymphatic: no cervical or axillary lymphadenopathy Results & Data Results & Data ([facility]) Vital Signs (Past 12 Hours) Vital Signs Temp Pulse Pulse Resp BP Pulse Ox 03/23/21 12:07 36.6 C 73 30 H 122/81 94 03/23/21 11:00 69 36 H 93 03/23/21 10:30 65 28 H 92 03/23/21 10:00 79 32 H 95 03/23/21 09:00 37 C 83 44 H 133/83 95 03/23/21 08:00 36.9 C 80 20 143/82 H 91 03/23/21 07:00 67 03/23/21 04:00 76 03/23/21 03:00 37.0 C 84 26 H 121/85 92 Laboratory Results Short CBC 03/23/21 Range/Units 06:38 WBC 6.14 (4.8-10.8) K/uL Hgb 14.2 (14.0-18.0) g/dL Hct 39.9 L (42-52) % Plt Count 174 (130-400) K/uL BMP 03/23/21 06:38 Sodium 145 D Potassium 4.4 D Chloride 113 H Carbon Dioxide 23 BUN 22 H Creatinine 1.29 D Glucose 127 H Calcium 8.6 Liver Function 03/23/21 Range/Units 06:38 Total Bilirubin 0.6 (0.2-1) mg/dl AST 182 H (15-37) U/L ALT 120 H (12-78) U/L Alkaline Phosphatase 60 (45-117) U/L Albumin 2.7 L (3.4-5.0) gm/dl Medications Administered Current Inpatient Medications Azithromycin (Azithromycin 250 Mg Tab) 250 mg PO QAM TITI Stop: 03/27/21 08:59 Heparin Sodium (Porcine) (Heparin Sod 5,000 Unit/0.5 Ml Vial) 7,500 units SQ Q8 TITI Stop: 04/21/21 21:59 Last Admin: 03/23/21 08:19 Dose: 7,500 units Documented by: Dexamethasone 6 mg/ Syringe 1.5 mls @ 1 mls/min IV Q24H TITI Stop: 04/22/21 09:59 Last Admin: 03/23/21 08:18 Dose: 1 mls/min Documented by: Ceftriaxone Sodium 2,000 mg/ (Dextrose) 70 mls @ 100 mls/hr IV DAILY TITI; Protocol Stop: 03/30/21 08:59 Last Infusion: 03/23/21 09:37 Dose: Infused Documented by:
[2021-03-23] MEDS ORDERED: AZITHROMYCIN 250 MG in DEXTROSE 5% 250 ML IV SCH (20:30)
[2021-03-23] MEDS ORDERED: MoRPHine SULFATE 2 MG/ML CARP IV STA (22:49)
[2021-03-24] MEDS ORDERED: KETOROLAC TROMETHAMINE 15 MG/ML VIAL IV ONE ×2 (05:00→20:11)
[2021-03-24] MEDS: HEPARIN SOD 5,000 UNIT/0.5 ML VIAL SQ SCH ×3 (05:36→21:47)
[2021-03-24 08:22] LABS: Basophils # (auto) 0.04 K/uL (0-0.2); Basophils % (auto) 0.5 %; Hematocrit (blood only) 40.1 % (42-52); Hemoglobin 13.9 g/dL (14.0-18.0); Immature Granulocytes # (auto) 0.07 K/uL (0.00-0.02); Immature Granulocytes % (auto) 0.9 %; Lymphocytes # (auto) 1.08 K/uL (1.2-3.4); Lymphocytes % (auto) 14.5 %; Mean Corpuscular Hgb Conc 34.7 g/dL (32-36); Mean Corpuscular Volume 86.4 fL (80-100); Mean Platelet Volume 10.3 fL (7.4-10.4); Monocytes # (auto) 1.64 K/uL (0.11-0.59); Neutrophils # (auto) 4.62 K/uL (1.4-6.5); Neutrophils % (auto) 62.1 %; Platelet Count 233 K/uL (130-400); RDW Coefficient of Variation 14.2 % (11.5-14.5); RDW Standard Deviation 44.7 fL (36.4-46.3); Red Blood Count 4.64 M/uL (4.7-6.1); White Blood Count 7.45 K/uL (4.8-10.8)
[2021-03-24 09:04] LABS: Albumin Level 2.6 gm/dl (3.4-5.0); BUN Creatinine Ratio 23.7 (10-20); Calcium 8.5 mg/dl (8.5-10.1); Creatinine Clr Calc Pharmacy 71.3 ml/min; Est GFR (African American) 76.7 ml/min; Est GFR (Non-African American) 66.1 ml/min; Magnesium 2.3 mg/dl (1.8-2.4); Potassium 4.6 mmol/L (3.5-5.1)
[2021-03-24 09:06] LABS: Albumin Globulin Ratio 0.5 (0.9-2); Bilirubin,Total 0.7 mg/dl (0.2-1); Globulin 4.9 gm/dl (2.5-4.0); Phosphorus 2.9 mg/dl (2.5-4.9); Total Protein 7.5 gm/dl (6.4-8.2)
[2021-03-24] MEDS: cefTRIAXone SODIUM 2,000 MG in DEXTROSE 5% 50 ML IV SCH (09:29)
[2021-03-24] MEDS: dexAMETHasone 6 MG in SYRINGE 0 ML IV SCH (09:29)
[2021-03-24] MEDS: AZITHROMYCIN 250 MG TAB PO SCH (09:30)
--- NOTE | 2021-03-24 10:41 | Pulmonology Progress Note ---
Date of Service March 24, 2021 Assessment & Plan (1) Hypoxia: (2) Pneumonia due to 2019 novel coronavirus: Plan: Impression: This is a 55-year-old male with Covid and hypoxemic respiratory failure Recommendations: 1. COVID-19/ARDs: Continue dexamethasone 6 mg IV daily. The patient's LFTs are greater than 5 times upper limits of normal with AST which would exclude him from therapy with baricitinib. 2. Hypoxia: Continue high flow. Patient appears to be improving. Would keep him on the dry side. Continue efforts at proning or decubitus positioning. 3. Patient's procalcitonin was mildly elevated and cannot exclude a potential component of infectious/bacterial pneumonia. Continue azithromycin and Rocephin and trend procalcitonin over time. Anticipate 5-day course of antimicrobial therapies 4. Management of the patient's other medical issues is deferred to the primary admitting service. Patient appears clinically responding to therapy and improved. Pulmonary medicine will sign off at this point time. Feel free to contact us should the patient's clinical condition change. Admission and Anticipated Discharge Date Admission Date: March 22, 2021 Subjective EMR reviewed. Patient was seen the bedside but he was sleeping and I elected to not arouse him. His oxygen saturations appear improved. Discussed with the clinical nurse at bedside. He appears comfortable. Review of Systems Review of Systems: Deferred as the patient was sleeping and I elected to not wake him Physical Exam Physical Exam: Exam limited. The patient has had a decrease in his oxygen requirement overnight. He appears to be breathing comfortably without evidence of increased work of breathing or paradoxical respiratory movements. Results & Data Results & Data ([facility]) Vital Signs (Past 12 Hours) Vital Signs Temp Pulse Resp BP BP Pulse Ox 03/24/21 08:10 64 22 91 03/24/21 07:53 37.1 C 59 L 28 H 113/62 95 03/24/21 04:36 76 26 H 89 L 03/24/21 04:28 37.4 C 68 18 129/83 88 L 03/24/21 00:20 37.4 C 71 18 126/79 92 03/23/21 22:53 76 20 94 Laboratory Results 03/24/21 07:20 03/24/21 07:20 Diagnostic Findings no new imaging PG Care Time/CCT Total # of Minutes Spent Total Time Spent with Patient: Total time spent is greater than 50% in coordination of care (as documented) at patient's floor/unit and/or counseling patient: Coding Level of Care Code 60294 Subseq Hosp Care Lvl 2 Diagnoses Hypoxia R09.02 Pneumonia due to 2019 novel coronavirus U07.1; J12.82
--- NOTE | 2021-03-24 15:09 | Hospitalist Progress Note ---
Date of Service March 24, 2021 Assessment & Plan (1) Pneumonia due to 2019 novel coronavirus: Plan: Not vaccinated Management as below (2) Acute respiratory failure with hypoxia: Plan: Due to COVID-19 virus infection Plan: #. Acute hypoxic respiratory failure #. COVID-19 #. Community-acquired pneumonia Patient not on home oxygen, not vaccinated against Covid, signs and symptoms since 16 days. Patient complains of productive cough with yellow sputum. Patient requiring BiPAP alternating with high flow nasal cannula oxygen. Increased procalcitonin and Has been on azithromycin and Rocephin Await blood culture Admitting CTA chest: No PE, extensive bilateral pulmonary opacities. Not a candidate for remdesivir, or baricitinib due to increasing LFTs Continue with dexamethasone 03/22 Proning as able, incentive spirometry, flutter valve, Lasix as needed to keep him on rice drier side, BNP Appreciate pulmonary input and recommendation Continue with high flow nasal cannula oxygen alternating with BiPAP A little better today requiring high flow oxygen via nasal cannula We will continue current management 2. JOHNNA unknown baseline, unknown if h/o CKD gentle hydration, BNP 124 Monitor BMP daily, if uptrending consider nephrology consult Creatinine has been improving 3. Steatosis 4. Transminitis Transaminitis likely secondary to Covid, no belly pain per patient. Monitor daily, consider GI consult if uptrending. Transaminitis has been improving DVT prophylaxis: On Heparin given JOHNNA component. Can change to enoxaparin once JOHNNA resolves. Admission and Anticipated Discharge Date Admission Date: March 22, 2021 Subjective 03/23/2021 The patient was seen and examined in telemetry unit and in the Covid room He remains very shortness of breath and has not improved since admission He is on the verge of intubation Denies any pain, palpitation, any abdominal pain, nausea or vomiting 03/24/2021 The patient was seen and examined in telemetry unit and in the Covid room He feels clinically a little better but gets tired with more shortness of breath with minimal exertion Denies any abdominal pain, nausea or vomiting Review of Systems Review of Systems: All systems reviewed and are unremarkable except as noted below Respiratory: Moderate to severe shortness of breath at rest Musculoskeletal: Generally very weak and lethargic Physical Exam Physical Exam: Lying in bed with distress secondary to shortness of breath Constitutional: well developed, well nourished, + ill appearing and average body habitus Eyes: PERRL, conjunctivae normal, anicteric sclerae ENMT: external ear and nose normal, oropharynx normal Respiratory: + respiratory distress (Moderate shortness of breath at rest) and + labored breathing Auscultation: + diminished lung sounds and + crackles (Minimal crackles at the bases) Cardiovascular: Rate/Rhythm: regular rate and regular rhythm Heart Sounds: normal S1 and normal S2; no murmur Extremities: no edema Gastrointestinal (Abdomen): Inspection/Auscultation: normal bowel sounds; abdomen not distended Percussion/Palpation: abdomen soft; abdomen nontender Musculoskeletal: No acute arthritis in any joint Neurologic: Alert, awake and oriented x3 Psychiatric: A+Ox3, euthymic affect Lymphatic: no cervical or axillary lymphadenopathy Results & Data Results & Data ([facility]) Vital Signs (Past 12 Hours) Vital Signs Temp Pulse Resp BP BP Pulse Ox 03/24/21 14:14 20 89 L 03/24/21 12:11 37.1 C 61 30 H 124/84 03/24/21 11:28 81 22 89 L 03/24/21 08:10 64 22 91 03/24/21 07:53 37.1 C 59 L 28 H 113/62 95 03/24/21 04:36 76 26 H 89 L 03/24/21 04:28 37.4 C 68 18 129/83 88 L Diagnostic Findings Short CBC 03/24/21 Range/Units 07:20 WBC 7.45 (4.8-10.8) K/uL Hgb 13.9 L (14.0-18.0) g/dL Hct 40.1 L (42-52) % Plt Count 233 (130-400) K/uL BMP 03/24/21 07:20 Sodium 145 Potassium 4.6 Chloride 113 H Carbon Dioxide 24 BUN 29 H Creatinine 1.23 Glucose 115 H Calcium 8.5 Liver Function 03/24/21 Range/Units 07:20 Total Bilirubin 0.7 (0.2-1) mg/dl AST 153 H (15-37) U/L ALT 104 H (12-78) U/L Alkaline Phosphatase 61 (45-117) U/L Albumin 2.6 L (3.4-5.0) gm/dl Medications Administered Current Inpatient Medications Azithromycin (Azithromycin 250 Mg Tab) 250 mg PO [facility] [place] Stop: 03/27/21 08:59 Last Admin: 03/24/21 09:30 Dose: 250 mg Documented by: Heparin Sodium (Porcine) (Heparin Sod 5,000 Unit/0.5 Ml Vial) 7,500 units SQ Q8 TITI Stop: 04/21/21 21:59 Last Admin: 03/24/21 05:36 Dose: 7,500 units Documented by: Dexamethasone 6 mg/ Syringe 1.5 mls @ 1 mls/min IV Q24H TITI Stop: 04/22/21 09:59 Last Admin: 03/24/21 09:29 Dose: 1 mls/min Documented by: Ceftriaxone Sodium 2,000 mg/ (Dextrose) 70 mls @ 100 mls/hr IV DAILY [facility]; Protocol Stop: 03/30/21 08:59 Last Infusion: 03/24/21 10:39 Dose: Infused Documented by:
[2021-03-24] MEDS: SODIUM CHLORIDE 0.65% NA SOLN 45 ML (OCEAN) SCH (21:47)
[2021-03-25] MEDS ORDERED: LORazepam 0.5 MG TAB PO STA (05:19)
[2021-03-25] MEDS: HEPARIN SOD 5,000 UNIT/0.5 ML VIAL SQ SCH ×2 (05:38→14:02)
[2021-03-25 07:40] LABS: Albumin Level 2.8 gm/dl (3.4-5.0); BUN Creatinine Ratio 28.4 (10-20); Calcium 8.4 mg/dl (8.5-10.1); Est GFR (African American) 77.4 ml/min; Est GFR (Non-African American) 66.8 ml/min; Potassium 4.4 mmol/L (3.5-5.1)
[2021-03-25 07:43] LABS: Albumin Globulin Ratio 0.5 (0.9-2); Bilirubin,Total 0.8 mg/dl (0.2-1); Globulin 5.2 gm/dl (2.5-4.0)
[2021-03-25] MEDS: AZITHROMYCIN 250 MG TAB PO SCH (08:38)
[2021-03-25] MEDS: cefTRIAXone SODIUM 2,000 MG in DEXTROSE 5% 50 ML IV SCH (08:39)
[2021-03-25] MEDS: SODIUM CHLORIDE 0.65% NA SOLN 45 ML (OCEAN) SCH ×2 (08:42→20:54)
[2021-03-25] MEDS: dexAMETHasone 6 MG in SYRINGE 0 ML IV SCH (09:45)
--- NOTE | 2021-03-25 14:31 | Hospitalist Progress Note ---
Date of Service March 25, 2021 Assessment & Plan (1) Pneumonia due to 2019 novel coronavirus: Plan: Not vaccinated Management as below (2) Acute respiratory failure with hypoxia: Plan: Due to COVID-19 virus infection Plan: #. Acute hypoxic respiratory failure #. COVID-19 #. Community-acquired pneumonia Patient not on home oxygen, not vaccinated against Covid, signs and symptoms since 16 days. Patient complains of productive cough with yellow sputum. Patient requiring BiPAP alternating with high flow nasal cannula oxygen. Increased procalcitonin and Has been on azithromycin and Rocephin Await blood culture Admitting CTA chest: No PE, extensive bilateral pulmonary opacities. Not a candidate for remdesivir, or baricitinib due to increasing LFTs Continue with dexamethasone 03/22 Proning as able, incentive spirometry, flutter valve, Lasix as needed to keep him on milk drier side, BNP Appreciate pulmonary input and recommendation Continue with high flow nasal cannula oxygen alternating with BiPAP Clinically better but is still requiring high flow oxygen to maintain saturation We will continue current management 2. JOHNNA unknown baseline, unknown if h/o CKD gentle hydration, BNP 124 Monitor BMP daily, if uptrending consider nephrology consult Creatinine has been improving 3. Steatosis 4. Transminitis Transaminitis likely secondary to Covid, no belly pain per patient. Monitor daily, consider GI consult if uptrending. Transaminitis has been improving-AST 152 and ALT 116 and alkaline phos 75 as of 03/25/2021 DVT prophylaxis: On Heparin given JOHNNA component. Can change to enoxaparin once JOHNNA resolves. We will change to Lovenox Admission and Anticipated Discharge Date Admission Date: March 22, 2021 Subjective 03/23/2021 The patient was seen and examined in telemetry unit and in the Covid room He remains very shortness of breath and has not improved since admission He is on the verge of intubation Denies any pain, palpitation, any abdominal pain, nausea or vomiting 03/24/2021 The patient was seen and examined in telemetry unit and in the Covid room He feels clinically a little better but gets tired with more shortness of breath with minimal exertion Denies any abdominal pain, nausea or vomiting 03/25/2021 The patient was seen and examined in telemetry unit and in the Covid room He has been feeling much better still requires high flow oxygen Has cough and is generally very weak and lethargic Review of Systems Review of Systems: All systems reviewed and are unremarkable except as noted below Respiratory: Moderate to severe shortness of breath at rest Musculoskeletal: Generally very weak and lethargic Physical Exam Physical Exam: Lying in bed with distress secondary to shortness of breath Constitutional: well developed, well nourished, + ill appearing and average body habitus Eyes: PERRL, conjunctivae normal, anicteric sclerae ENMT: external ear and nose normal, oropharynx normal Neck: trachea midline, no thyromegaly Respiratory: + respiratory distress (Moderate shortness of breath at rest) and + labored breathing Auscultation: + diminished lung sounds and + crackles (Minimal crackles at the bases) Cardiovascular: Rate/Rhythm: regular rate and regular rhythm Heart Sounds: normal S1 and normal S2; no murmur Extremities: no edema Gastrointestinal (Abdomen): Inspection/Auscultation: normal bowel sounds; abdomen not distended Percussion/Palpation: abdomen soft; abdomen nontender Musculoskeletal: No acute arthritis in any joint Neurologic: Alert, awake and oriented x3 Psychiatric: A+Ox3, euthymic affect Lymphatic: no cervical or axillary lymphadenopathy Results & Data Results & Data ([facility]) Vital Signs (Past 12 Hours) Vital Signs Temp Pulse Resp BP Pulse Ox 03/25/21 14:26 59 L 24 90 03/25/21 11:21 56 L 24 92 03/25/21 11:16 36.8 C 57 L 21 124/70 92 03/25/21 07:48 37.1 C 66 23 146/92 H 93 03/25/21 06:09 65 28 H 94 03/25/21 03:03 36.8 C 64 20 138/88 91 Laboratory Results [facility] 03/25/21 06:18 Sodium 142 Potassium 4.4 Chloride 109 H Carbon Dioxide 25 BUN 35 H Creatinine 1.22 Glucose 110 H Calcium 8.4 L Liver Function 03/25/21 Range/Units 06:18 Total Bilirubin 0.8 (0.2-1) mg/dl AST 152 H (15-37) U/L ALT 116 H (12-78) U/L Alkaline Phosphatase 75 (45-117) U/L Albumin 2.8 L (3.4-5.0) gm/dl Medications Administered Current Inpatient Medications [facility] ([facility] 250 Mg Tab) [facility] [place] Stop: 03/27/21 08:59 Last Admin: 03/25/21 08:38 Dose: 250 mg Documented by: Heparin Sodium (Porcine) (Heparin Sod 5,000 Unit/0.5 Ml Vial) 7,500 units SQ Q8 TITI Stop: 04/21/21 21:59 Last Admin: 03/25/21 14:02 Dose: 7,500 units Documented by: Dexamethasone 6 mg/ Syringe 1.5 mls @ 1 mls/min IV Q24H TITI Stop: 04/22/21 09:59 Last Admin: 03/25/21 09:45 Dose: 1 mls/min Documented by: Ceftriaxone Sodium 2,000 mg/ (Dextrose) 70 mls @ 100 mls/hr IV DAILY [facility]; Protocol Stop: 03/30/21 08:59 Last Infusion: 03/25/21 09:29 Dose: Infused Documented by: Sodium Chloride (Sodium Chloride 0.65% Na Soln 45 Ml ([place])) 2 sprays NA BID TIIT Stop: 04/23/21 20:59 Last Admin: 03/25/21 08:42 Dose: Not Given Documented by:
[2021-03-25] MEDS ORDERED: ENOXAPARIN INJ 40 MG/0.4 ML SYR SQ ONE (14:32)
[2021-03-25] MEDS: ENOXAPARIN INJ 40 MG/0.4 ML SYR SQ SCH (20:54)
[2021-03-25] MEDS: MELATONIN 3 MG TAB PO PRN (22:01)
[2021-03-26] MEDS: cefTRIAXone SODIUM 2,000 MG in DEXTROSE 5% 50 ML IV SCH (09:05)
[2021-03-26] MEDS: AZITHROMYCIN 250 MG TAB PO SCH (09:05)
[2021-03-26] MEDS: ENOXAPARIN INJ 40 MG/0.4 ML SYR SQ SCH ×2 (09:06→20:12)
[2021-03-26] MEDS: dexAMETHasone 6 MG in SYRINGE 0 ML IV SCH (09:07)
[2021-03-26] MEDS: SODIUM CHLORIDE 0.65% NA SOLN 45 ML (OCEAN) SCH ×2 (09:07→20:13)
--- NOTE | 2021-03-26 14:44 | Hospitalist Progress Note ---
Date of Service March 26, 2021 Assessment & Plan (1) Pneumonia due to 2019 novel coronavirus: Plan: Not vaccinated Management as below (2) Acute respiratory failure with hypoxia: Plan: Due to COVID-19 virus infection Plan: #. Acute hypoxic respiratory failure #. COVID-19 #. Community-acquired pneumonia Patient not on home oxygen, not vaccinated against Covid, signs and symptoms since 16 days. Patient complains of productive cough with yellow sputum. Patient requiring BiPAP alternating with high flow nasal cannula oxygen. Increased procalcitonin and Has been on azithromycin and Rocephin Await blood culture Admitting CTA chest: No PE, extensive bilateral pulmonary opacities. Not a candidate for remdesivir, or baricitinib due to increasing LFTs Continue with dexamethasone 03/22 Proning as able, incentive spirometry, flutter valve, Lasix as needed to keep him on pulp drier side, BNP Appreciate pulmonary input and recommendation Continue with high flow nasal cannula oxygen alternating with BiPAP Clinically better but is still requiring high flow oxygen to maintain saturation Still has significant shortness of breath at rest and is requiring high flow oxygen at 60 L with 95% FiO2 2. JOHNNA unknown baseline, unknown if h/o CKD gentle hydration, BNP 124 Monitor BMP daily, if uptrending consider nephrology consult Creatinine has been improving-creatinine has been normalized 3. Steatosis 4. Transminitis Transaminitis likely secondary to Covid, no belly pain per patient. Monitor daily, consider GI consult if uptrending. Transaminitis has been improving-AST 152 and ALT 116 and alkaline phos 75 as of 03/25/2021 DVT prophylaxis: On Heparin given JOHNNA component. Can change to enoxaparin once JOHNNA resolves. We will change to Lovenox Admission and Anticipated Discharge Date Admission Date: March 22, 2021 Subjective 03/23/2021 The patient was seen and examined in telemetry unit and in the Covid room He remains very shortness of breath and has not improved since admission He is on the verge of intubation Denies any pain, palpitation, any abdominal pain, nausea or vomiting 03/24/2021 The patient was seen and examined in telemetry unit and in the Covid room He feels clinically a little better but gets tired with more shortness of breath with minimal exertion Denies any abdominal pain, nausea or vomiting 03/25/2021 The patient was seen and examined in telemetry unit and in the Covid room He has been feeling much better still requires high flow oxygen Has cough and is generally very weak and lethargic 03/26/2021 The patient was seen and examined in telemetry unit and in the Covid room He feels fine but still requiring very high flow oxygen to maintain saturation He has cough and after coughing he gets very short of breath Review of Systems Review of Systems: All systems reviewed and are unremarkable except as noted below Respiratory: Moderate to severe shortness of breath at rest Musculoskeletal: Generally very weak and lethargic Physical Exam Physical Exam: Lying in bed with distress secondary to shortness of breath Constitutional: well developed, well nourished, + ill appearing and average body habitus Eyes: PERRL, conjunctivae normal, anicteric sclerae ENMT: external ear and nose normal, oropharynx normal Neck: trachea midline, no thyromegaly Respiratory: + respiratory distress (Moderate shortness of breath at rest) and + labored breathing Auscultation: + diminished lung sounds and + crackles (Minimal crackles at the bases) Cardiovascular: Rate/Rhythm: regular rate and regular rhythm Heart Sounds: normal S1 and normal S2; no murmur Extremities: no edema Gastrointestinal (Abdomen): Inspection/Auscultation: normal bowel sounds; abdomen not distended Percussion/Palpation: abdomen soft; abdomen nontender Musculoskeletal: No acute arthritis in any joint Neurologic: Alert, awake and oriented x3. Generally very weak and lethargic Psychiatric: A+Ox3, euthymic affect Lymphatic: no cervical or axillary lymphadenopathy Results & Data Results & Data ([facility]) Vital Signs (Past 12 Hours) Vital Signs Temp Pulse Pulse Pulse Resp BP Pulse Ox 03/26/21 11:26 69 28 H 94 03/26/21 09:44 60 03/26/21 07:42 37.1 C 65 20 143/84 H 90 03/26/21 07:15 68 28 H 91 03/26/21 03:07 63 18 88 L 03/26/21 03:00 36.8 C 63 20 138/79 90 Medications Administered Current Inpatient Medications Azithromycin (Az[facility]romycin 250 Mg Tab) [facility] [place] Stop: 03/27/21 08:59 Last Admin: 03/26/21 09:05 Dose: 250 mg Documented by: Enoxaparin Sodium (Enoxaparin Inj 40 Mg/0.4 Ml Syr) 40 mg SQ Q12 TITI Stop: 04/24/21 20:59 Last Admin: 03/26/21 09:06 Dose: 40 mg Documented by: Dexamethasone 6 mg/ Syringe 1.5 mls @ 1 mls/min IV Q24H TITI Stop: 04/22/21 09:59 Last Admin: 03/26/21 09:07 Dose: 1 mls/min Documented by: Ceftriaxone Sodium 2,000 mg/ (Dextrose) 70 mls @ 100 mls/hr IV DAILY [facility]; Protocol Stop: 03/30/21 08:59 Last Infusion: 03/26/21 09:50 Dose: Infused Documented by: Melatonin (Melatonin 3 Mg Tab) 6 mg PO HS PRN PRN Reason: Sleep Stop: 04/24/21 21:42 Last Admin: 03/25/21 22:01 Dose: 6 mg Documented by: Sodium Chloride (Sodium Chloride 0.65% Na Soln 45 Ml ([place])) 2 sprays NA BID TITI Stop: 04/23/21 20:59 Last Admin: 03/26/21 09:07 Dose: Not Given Documented by:
[2021-03-26] MEDS: MELATONIN 3 MG TAB PO PRN (20:12)
[2021-03-27] MEDS ORDERED: KETOROLAC TROMETHAMINE 15 MG/ML VIAL IV ONE ×2 (02:45→21:09)
[2021-03-27] MEDS: dexAMETHasone 6 MG in SYRINGE 0 ML IV SCH (07:47)
[2021-03-27] MEDS: SODIUM CHLORIDE 0.65% NA SOLN 45 ML (OCEAN) SCH ×2 (07:47→20:42)
[2021-03-27] MEDS: ENOXAPARIN INJ 40 MG/0.4 ML SYR SQ SCH ×2 (07:47→20:39)
[2021-03-27] MEDS: cefTRIAXone SODIUM 2,000 MG in DEXTROSE 5% 50 ML IV SCH (09:07)
--- NOTE | 2021-03-27 15:37 | Hospitalist Progress Note ---
Date of Service March 27, 2021 Assessment & Plan (1) Pneumonia due to 2019 novel coronavirus: Plan: Not vaccinated Management as below (2) Acute respiratory failure with hypoxia: Plan: Due to COVID-19 virus infection Plan: #. Acute hypoxic respiratory failure #. COVID-19 #. Community-acquired pneumonia Patient not on home oxygen, not vaccinated against Covid, signs and symptoms since 16 days. Patient complains of productive cough with yellow sputum. Patient requiring BiPAP alternating with high flow nasal cannula oxygen. Increased procalcitonin and Has been on azithromycin and Rocephin Await blood culture Admitting CTA chest: No PE, extensive bilateral pulmonary opacities. Not a candidate for remdesivir, or baricitinib due to increasing LFTs Continue with dexamethasone 03/22 Proning as able, incentive spirometry, flutter valve, Lasix as needed to keep him on label drier side, BNP Appreciate pulmonary input and recommendation Continue with high flow nasal cannula oxygen alternating with BiPAP Clinically better but is still requiring high flow oxygen to maintain saturation Still has significant shortness of breath at rest and is requiring high flow oxygen at 60 L with 100% FiO2 Not any better in fact looks worse compared with yesterday We will continue current management 2. JOHNNA unknown baseline, unknown if h/o CKD gentle hydration, BNP 124 Monitor BMP daily, if uptrending consider nephrology consult Creatinine has been improving-creatinine has been normalized 3. Steatosis 4. Transminitis Transaminitis likely secondary to Covid, no belly pain per patient. Monitor daily, consider GI consult if uptrending. Transaminitis has been improving-AST 152 and ALT 116 and alkaline phos 75 as of 03/25/2021 We will recheck levels tomorrow DVT prophylaxis: On Heparin given JOHNNA component. Can change to enoxaparin once JOHNNA resolves. We will change to Lovenox Admission and Anticipated Discharge Date Admission Date: March 22, 2021 Subjective 03/23/2021 The patient was seen and examined in telemetry unit and in the Covid room He remains very shortness of breath and has not improved since admission He is on the verge of intubation Denies any pain, palpitation, any abdominal pain, nausea or vomiting 03/24/2021 The patient was seen and examined in telemetry unit and in the Covid room He feels clinically a little better but gets tired with more shortness of breath with minimal exertion Denies any abdominal pain, nausea or vomiting 03/25/2021 The patient was seen and examined in telemetry unit and in the Covid room He has been feeling much better still requires high flow oxygen Has cough and is generally very weak and lethargic 03/26/2021 The patient was seen and examined in telemetry unit and in the Covid room He feels fine but still requiring very high flow oxygen to maintain saturation He has cough and after coughing he gets very short of breath 03/27/2021 The patient was seen and examined in telemetry unit and in the Covid room He has been feeling any better and is still requiring very high flow oxygen to maintain saturation Has cough Review of Systems Review of Systems: All systems reviewed and are unremarkable except as noted below Respiratory: Moderate to severe shortness of breath at rest Musculoskeletal: Generally very weak and lethargic Physical Exam Physical Exam: Lying in bed with distress secondary to shortness of breath Constitutional: well developed, well nourished, + ill appearing and average body habitus Eyes: PERRL, conjunctivae normal, anicteric sclerae ENMT: external ear and nose normal, oropharynx normal Neck: trachea midline, no thyromegaly Respiratory: + respiratory distress (Moderate shortness of breath at rest) and + labored breathing Auscultation: + diminished lung sounds and + crackles (Minimal crackles at the bases) Cardiovascular: Rate/Rhythm: regular rate and regular rhythm Heart Sounds: normal S1 and normal S2; no murmur Extremities: no edema Gastrointestinal (Abdomen): Inspection/Auscultation: normal bowel sounds; abdomen not distended Percussion/Palpation: abdomen soft; abdomen nontender Musculoskeletal: No acute arthritis in any joint Neurologic: Alert, awake and oriented x3. Generally very weak and lethargic Psychiatric: A+Ox3, euthymic affect Lymphatic: no cervical or axillary lymphadenopathy Results & Data Results & Data ([facility]) Vital Signs (Past 12 Hours) Vital Signs Temp Pulse Pulse Resp BP Pulse Ox 03/27/21 15:13 37.2 C 74 20 139/85 91 03/27/21 14:38 22 92 03/27/21 11:34 37.3 C 80 22 128/83 90 03/27/21 10:34 90 20 90 03/27/21 09:00 68 11/29/21 07:53 88 19 91 03/27/21 07:21 37.4 C 75 19 105/71 93 03/27/21 03:46 79 22 84 L Medications Administered Current Inpatient Medications Enoxaparin Sodium (Enoxaparin Inj 40 Mg/0.4 Ml Syr) 40 mg SQ Q12 TITI Stop: 04/24/21 20:59 Last Admin: 03/27/21 07:47 Dose: 40 mg Documented by: Dexamethasone 6 mg/ Syringe 1.5 mls @ 1 mls/min IV Q24H TITI Stop: 04/22/21 09:59 Last Admin: 03/27/21 07:47 Dose: 1 mls/min Documented by: Ceftriaxone Sodium 2,000 mg/ (Dextrose) 70 mls @ 100 mls/hr IV DAILY [facility]; Protocol Stop: 03/30/21 08:59 Last Infusion: 03/27/21 10:00 Dose: Infused Documented by: Melatonin (Melatonin 3 Mg Tab) 6 mg PO HS PRN PRN Reason: Sleep Stop: 04/24/21 21:42 Last Admin: 03/26/21 20:12 Dose: 6 mg Documented by: Sodium Chloride (Sodium Chloride 0.65% Na Soln 45 Ml ([place])) 2 sprays NA BID TITI Stop: 04/23/21 20:59 Last Admin: 03/27/21 07:47 Dose: 2 sprays Documented by:
[2021-03-27] MEDS: MELATONIN 3 MG TAB PO PRN (20:39)
[2021-03-28] MEDS ORDERED: KETOROLAC TROMETHAMINE 15 MG/ML VIAL IV ONE (04:25)
[2021-03-28 07:13] LABS: Basophils # (auto) 0.02 K/uL (0-0.2); Basophils % (auto) 0.2 %; Eosinophils # (auto) 0.12 K/uL (0-0.5); Eosinophils % (auto) 1.1 %; Hematocrit (blood only) 41.2 % (42-52); Hemoglobin 14.7 g/dL (14.0-18.0); Immature Granulocytes # (auto) 0.26 K/uL (0.00-0.02); Immature Granulocytes % (auto) 2.3 %; Lymphocytes # (auto) 0.89 K/uL (1.2-3.4); Mean Corpuscular Hemoglobin 30.1 pg (25-34); Mean Corpuscular Hgb Conc 35.7 g/dL (32-36); Mean Corpuscular Volume 84.4 fL (80-100); Mean Platelet Volume 10.5 fL (7.4-10.4); Monocytes # (auto) 0.62 K/uL (0.11-0.59); Monocytes % (auto) 5.5 %; Neutrophils # (auto) 9.27 K/uL (1.4-6.5); Neutrophils % (auto) 82.9 %; Platelet Count 258 K/uL (130-400); RDW Coefficient of Variation 13.2 % (11.5-14.5); RDW Standard Deviation 40.3 fL (36.4-46.3); Red Blood Count 4.88 M/uL (4.7-6.1); White Blood Count 11.18 K/uL (4.8-10.8)
[2021-03-28 07:48] LABS: Albumin Level 2.5 gm/dl (3.4-5.0); BUN Creatinine Ratio 23.5 (10-20); Calcium 8.5 mg/dl (8.5-10.1); Creatinine Clr Calc Pharmacy 73.8 ml/min; Est GFR (African American) 82.3 ml/min; Potassium 3.9 mmol/L (3.5-5.1)
[2021-03-28 07:51] LABS: Albumin Globulin Ratio 0.5 (0.9-2); Bilirubin,Total 0.8 mg/dl (0.2-1); Phosphorus 2.3 mg/dl (2.5-4.9); Total Protein 7.5 gm/dl (6.4-8.2)
[2021-03-28] MEDS: cefTRIAXone SODIUM 2,000 MG in DEXTROSE 5% 50 ML IV SCH (07:59)
[2021-03-28] MEDS: SODIUM CHLORIDE 0.65% NA SOLN 45 ML (OCEAN) SCH ×2 (07:59→19:54)
[2021-03-28] MEDS: ENOXAPARIN INJ 40 MG/0.4 ML SYR SQ SCH ×2 (08:00→19:54)
[2021-03-28] MEDS: dexAMETHasone 6 MG in SYRINGE 0 ML IV SCH (08:00)
--- NOTE | 2021-03-28 23:37 | Hospitalist Progress Note ---
Date of Service March 28, 2021 Assessment & Plan (1) Pneumonia due to 2019 novel coronavirus: (2) Acute respiratory failure with hypoxia: Plan: #. Acute hypoxic respiratory failure #. COVID-19 #. Community-acquired pneumonia Patient not on home oxygen, not vaccinated against Covid, signs and symptoms since 16 days. Presented on admission with productive cough associated with yellow sputum. Patient requiring BiPAP alternating with high flow nasal cannula oxygen. Elevated procalcitonin CTA chest showed no PE, extensive bilateral pulmonary opacities. Not a candidate for remdesivir, or baricitinib due to increasing LFTs Continue with dexamethasone 03/22 Patient was started on azithromycin and Rocephin Continue with high flow nasal cannula oxygen alternating with BiPAP We will consider to give Lasix 40 mg IV x1 Patient was advised to continue with proning If respiratory status worsening, will consult pulm Continue monitor closely 2. JOHNNA unknown baseline, unknown if h/o CKD gentle hydration, BNP 124 Monitor BMP daily, if uptrending consider nephrology consult Creatinine has been improving-creatinine has been normalized 3. Steatosis 4. Transminitis Transaminitis likely secondary to Covid, Liver enzymes continue trending down with AST 67 ALT 105 Continue monitor LFT DVT prophylaxis: On Lovenox CODE STATUS full code Admission and Anticipated Discharge Date Admission Date: March 22, 2021 Subjective Patient was seen and examined for follow-up of shortness of breath due to to COVID-19 Lying in bed with mild respiratory distress with 2 officers at bedside Continues to require high flow oxygen supplement Review of Systems Review of Systems: All systems reviewed & are unremarkable except as noted in Subjective Physical Exam Physical Exam: General- No acute distress Head- atraumatic Eyes- PERRL, EOMI, ENT- oropharynx clear Neck- supple, no JVD Lungs- + diminished breath sounds vaccinated Heart- regular rhythm; no murmur Abdomen- normal bowel sounds, soft, nontender Extremities- no calf tenderness Neuro- alert, oriented x 3; PERRL, EOMI; no facial palsy; no dysarthria Skin- warm & dry Results & Data Results & Data ([facility]) Vital Signs (Past 12 Hours) Vital Signs Temp Pulse Pulse Resp BP Pulse Ox 03/28/21 23:33 93 H 03/28/21 23:23 37.1 C 81 23 122/67 92 03/28/21 19:14 37.1 C 71 20 117/68 88 L 11/30/21 17:03 36.9 C 73 18 117/65 89 L 03/28/21 14:22 67 20 92 03/28/21 14:02 79 18 83 L 03/28/21 12:33 36.8 C 73 26 H 112/67 90
[2021-03-29] MEDS ORDERED: SODIUM PHOSPHATE 3 MMOL/1 ML INFUSION IV STA (00:10)
[2021-03-29] MEDS ORDERED: FUROSEMIDE INJ 20 MG/2 ML VIAL IV ONE (00:12)
[2021-03-29] MEDS ORDERED: SODIUM PHOSPHATE 9 MMOL in SODIUM CHLORIDE 0.9% 250 ML IV ONE (00:30)
[2021-03-29 04:36] LABS: Appearance Urine Clear (Clear); Bilirubin Urine Negative (Negative); Blood Urine Negative (Negative); Color Urine Yellow; Glucose Urine UA Negative (Negative); Ketones Urine Negative (Negative); Leukocyte Esterase Urine Negative (Negative); Nitrite Urine Negative (Negative); Protein Urine Negative (Negative); Specific Gravity Urine 1.011 (1.000-1.030); Urobilinogen Urine Negative (Negative)
[2021-03-29 06:51] LABS: Hematocrit (blood only) 41.5 % (42-52); Hemoglobin 14.7 g/dL (14.0-18.0); Mean Corpuscular Hemoglobin 30.1 pg (25-34); Mean Corpuscular Hgb Conc 35.4 g/dL (32-36); Mean Corpuscular Volume 84.9 fL (80-100); Mean Platelet Volume 10.9 fL (7.4-10.4); Platelet Count 295 K/uL (130-400); RDW Coefficient of Variation 13.1 % (11.5-14.5); RDW Standard Deviation 40.5 fL (36.4-46.3); Red Blood Count 4.89 M/uL (4.7-6.1); White Blood Count 11.39 K/uL (4.8-10.8)
[2021-03-29 07:38] LABS: Albumin Level 2.4 gm/dl (3.4-5.0); BUN Creatinine Ratio 19.9 (10-20); Calcium 8.5 mg/dl (8.5-10.1); Creatinine Clr Calc Pharmacy 65.9 ml/min; Est GFR (Non-African American) 61.3 ml/min
[2021-03-29 07:43] LABS: Albumin Globulin Ratio 0.5 (0.9-2); Bilirubin,Total 0.7 mg/dl (0.2-1); C Reactive Protein 11.7 mg/dl (0-0.29); Ferritin 526.1 ng/ml (8-388); Globulin 5.2 gm/dl (2.5-4.0); Total Protein 7.6 gm/dl (6.4-8.2)
[2021-03-29] MEDS: dexAMETHasone 6 MG in SYRINGE 0 ML IV SCH (09:12)
[2021-03-29] MEDS: cefTRIAXone SODIUM 2,000 MG in DEXTROSE 5% 50 ML IV SCH (09:12)
[2021-03-29] MEDS: ENOXAPARIN INJ 40 MG/0.4 ML SYR SQ SCH ×2 (09:13→21:13)
[2021-03-29] MEDS: SODIUM CHLORIDE 0.65% NA SOLN 45 ML (OCEAN) SCH ×2 (09:18→21:13)
--- NOTE | 2021-03-29 19:41 | Hospitalist Progress Note ---
Date of Service March 29, 2021 Assessment & Plan (1) Pneumonia due to 2019 novel coronavirus: (2) Acute respiratory failure with hypoxia: Plan: Acute hypoxic respiratory failure COVID-19 Community-acquired pneumonia Not vaccinated against Covid, signs and symptoms since 16 days. --CTA:Cardiomegaly without pulmonary emboli. Extensive bilateral pulmonary opacities compatible with viral pneumonia. Mild reactive mediastinal adenopathy. -Procalcitonin 0.87> 0.37 -Complete empiric Rocephin tomorrow Continue dexamethasone to complete 10-day course Lasix as needed On Lovenox for DVT prophylaxis Requiring high flow oxygen/BiPAP Appreciate pulmonology input JOHNNA unknown baseline, unknown if h/o CKD Creatinine levels normalized Monitor renal function Hepatic Steatosis Transaminitis Transaminitis likely secondary to Covid, Continue monitor LFT DVT Px: Lovenox SQ CODE STATUS: Full Code Admission and Anticipated Discharge Date Admission Date: March 22, 2021 Subjective Patient is seen and examined at bedside States having shortness of breath Currently on BiPAP Denies any chest pain, shortness of breath, dizziness, nausea, abdominal pain Offers no other complaints Review of Systems Review of Systems: All systems reviewed & are unremarkable except as noted in Subjective Physical Exam Physical Exam: Physical Exam: Vitals signs as noted above General Appearance:Moderately built and nourished, no apparent distress Head: normocephalic, Atraumatic Eyes: normal inspection, EOMI Neck: supple, Trachea midline Respiratory/Chest: Decreased breath sounds, CTA, No accessory muscle use Cardiovascular: S1, S2, No murmur Abdomen/GI:Soft, Non tender, Bowel sounds present Extremities/Musculoskeletal:normal inspection, no edema Neurologic/Psych:AAOX3, grossly no focal neurological deficits Skin: normal color, warm Results & Data Results & Data ([facility]) Vital Signs (Past 12 Hours) Vital Signs Temp Pulse Pulse Pulse Resp BP Pulse Ox 03/29/21 19:13 36.8 C 76 16 123/81 95 03/29/21 17:36 78 28 H 93 03/29/21 16:28 37.0 C 69 23 119/75 93 03/29/21 16:00 75 03/29/21 14:08 75 27 H 92 03/29/21 11:53 37.2 C 95 H 28 H 119/72 95 03/29/21 10:44 99 H 33 H 89 L 03/29/21 09:53 85 21 89 L 03/29/21 08:00 36.7 C 80 85 33 H 131/79 94 Laboratory Results Short CBC 03/29/21 Range/Units 06:12 WBC 11.39 H (4.8-10.8) K/uL Hgb 14.7 (14.0-18.0) g/dL Hct 41.5 L (42-52) % Plt Count 295 (130-400) K/uL BMP 03/29/21 06:12 Sodium 135 L Potassium 4.0 Chloride 102 Carbon Dioxide 26 BUN 26 H Creatinine 1.31 Glucose 100 H Calcium 8.5 Liver Function 03/29/21 Range/Units 06:12 Total Bilirubin 0.7 (0.2-1) mg/dl AST 52 H (15-37) U/L ALT 77 (12-78) U/L Alkaline Phosphatase 58 (45-117) U/L Albumin 2.4 L (3.4-5.0) gm/dl Urine 03/29/21 Range/Units 02:33 Urine Color Yellow Urine Appearance Clear (Clear) Urine pH 6.0 (4.5-7.5) Ur Specific [place] 1.011 (1.000-1.030) Urine Protein Negative (Negative) Urine Glucose (UA) Negative (Negative)
[2021-03-29] MEDS ORDERED: ACETAMINOPHEN 1,000 MG/100 ML VIAL IV STA (22:39)
[2021-03-30] MEDS: traMADol HCL 50 MG TABLET PO PRN ×2 (06:04→21:15)
[2021-03-30] MEDS ORDERED: FUROSEMIDE INJ 20 MG/2 ML VIAL IV ONE (07:47)
[2021-03-30 07:53] LABS: BUN Creatinine Ratio 31.6 (10-20); Calcium 9.1 mg/dl (8.5-10.1); Creatinine Clr Calc Pharmacy 85.6 ml/min; Est GFR (African American) 96.1 ml/min; Est GFR (Non-African American) 82.9 ml/min; Potassium 4.2 mmol/L (3.5-5.1)
[2021-03-30] MEDS: ENOXAPARIN INJ 40 MG/0.4 ML SYR SQ SCH ×2 (08:15→20:13)
[2021-03-30] MEDS: SODIUM CHLORIDE 0.65% NA SOLN 45 ML (OCEAN) SCH ×2 (08:15→20:14)
[2021-03-30 08:16] LABS: Phosphorus 3.4 mg/dl (2.5-4.9)
--- NOTE | 2021-03-30 08:16 | XRay Report ---
XR chest 1V portable CLINICAL HISTORY: Follow-up Covid pneumonia. Difficulty breathing COMPARISON STUDY: 03/22/2021 TECHNIQUE: 1 view of the chest FINDINGS: Single frontal view of the chest demonstrates the cardiomediastinal silhouette to be within normal li mits. Compared to the previous examination, persistent interstitial and alveolar opacities are presen t bilaterally. The findings are again characteristic of a viral type pneumonitis and Covid 19 pneumon ia. Is also left basilar atelectasis. Haziness is seen at left lung base with blunting the costophren ic angle characteristic of a left pleural effusion as well. There is no evidence for vascular congest ion. There is no acute osseous pathology. IMPRESSION: Persistent interstitial and alveolar opacities bilaterally characteristic of Covid pneumo sydnee. There is also evidence for small left pleural effusion and left basilar atelectasis. ACT 112: Negative or not required by law. Electronically signed by: Ronald Antoine M.D. 03/30/2021 8:15 AM
[2021-03-30] MEDS: dexAMETHasone 6 MG in SYRINGE 0 ML IV SCH (09:14)
[2021-03-30 09:44] LABS: Base Excess ABG 1.8 mEq/L (-9-1.8); HCO3 ABG 26 mmol/L (19-24); Oxygen Saturation ABG 95.4 % (90-95); PCO2 ABG 38 mmHg (35-46); PO2 ABG 71 mmHg (80-95); pH ABG 7.45 (7.35-7.45)
[2021-03-30 09:45] LABS: Allen Test Pos (Pos)
--- NOTE | 2021-03-30 17:07 | Hospitalist Progress Note ---
Date of Service March 30, 2021 Assessment & Plan (1) Pneumonia due to 2019 novel coronavirus: (2) Acute respiratory failure with hypoxia: Plan: Acute hypoxic respiratory failure COVID-19 Community-acquired pneumonia Not vaccinated against Covid, signs and symptoms since 16 days. --CTA:Cardiomegaly without pulmonary emboli. Extensive bilateral pulmonary opacities compatible with viral pneumonia. Mild reactive mediastinal adenopathy. -Procalcitonin 0.87> 0.37 -Completed empiric Rocephin course Continue dexamethasone to complete 10-day course Lasix as needed On Lovenox for DVT prophylaxis Requiring high flow oxygen/BiPAP Appreciate pulmonology input Currently on 85% FiO2 Encourage to prone Low threshold for Intubation JOHNNA unknown baseline, unknown if h/o CKD Creatinine levels normalized Monitor renal function Hepatic Steatosis Transaminitis Transaminitis likely secondary to Covid, LFTs trended down DVT Px: Lovenox SQ CODE STATUS: Full Code Admission and Anticipated Discharge Date Admission Date: March 22, 2021 Subjective Patient is seen and examined at bedside Was proning during my encounter Subjectively feels dyspnea is better after proning Currently on 85% FiO2 during my encounter Discussed with pulmonology today States having intermittent cough No new complaints Denies any chest pain, dizziness, nausea, abdominal pain Guards at bedside Review of Systems Review of Systems: All systems reviewed & are unremarkable except as noted in Subjective Physical Exam Physical Exam: Physical Exam: Vitals signs as noted above General Appearance:Moderately built and nourished, no apparent distress Head: normocephalic, Atraumatic Eyes: normal inspection, EOMI Neck: supple, Trachea midline Respiratory/Chest: Decreased breath sounds, CTA, No accessory muscle use Cardiovascular: S1, S2, No murmur Abdomen/GI:Soft, Non tender, Bowel sounds present Extremities/Musculoskeletal:normal inspection, no edema Neurologic/Psych:AAOX3, grossly no focal neurological deficits Skin: normal color, warm Results & Data Results & Data ([facility]) Vital Signs (Past 12 Hours) Vital Signs Temp Pulse Pulse Resp BP BP Pulse Ox 03/30/21 16:00 89 03/30/21 14:45 76 30 H 92 03/30/21 11:41 75 28 H 92 03/30/21 11:11 37.1 C 90 18 120/78 95 03/30/21 08:01 91 H 03/30/21 07:29 36.8 C 81 18 123/79 91 03/30/21 07:23 79 28 H 91 Laboratory Results [facility] 03/30/21 06:47 Sodium 137 Potassium 4.2 Chloride 106 Carbon Dioxide 25 BUN 32 H Creatinine 1.02 Glucose 102 H Calcium 9.1
[2021-03-30] MEDS: MELATONIN 3 MG TAB PO PRN (21:15)
[2021-03-31] MEDS ORDERED: SUCCINYLCHOLINE CHLORIDE 20 MG/ML 10 ML VIAL IV ONE (00:53)
[2021-03-31] MEDS: traMADol HCL 50 MG TABLET PO PRN (04:17)
[2021-03-31 07:09] LABS: Hematocrit (blood only) 41.9 % (42-52); Hemoglobin 14.7 g/dL (14.0-18.0); Mean Corpuscular Hgb Conc 35.1 g/dL (32-36); Mean Corpuscular Volume 85.5 fL (80-100); Mean Platelet Volume 10.6 fL (7.4-10.4); Platelet Count 356 K/uL (130-400); RDW Coefficient of Variation 13.3 % (11.5-14.5); RDW Standard Deviation 41.8 fL (36.4-46.3); White Blood Count 11.41 K/uL (4.8-10.8)
[2021-03-31 07:35] LABS: BUN Creatinine Ratio 26.8 (10-20); Calcium 8.7 mg/dl (8.5-10.1); Creatinine Clr Calc Pharmacy 72.2 ml/min; Est GFR (African American) 79.8 ml/min; Est GFR (Non-African American) 68.8 ml/min; Potassium 4.3 mmol/L (3.5-5.1)
[2021-03-31] MEDS: SODIUM CHLORIDE 0.65% NA SOLN 45 ML (OCEAN) SCH ×2 (08:39→23:50)
[2021-03-31] MEDS: dexAMETHasone 6 MG in SYRINGE 0 ML IV SCH (08:40)
[2021-03-31] MEDS: ENOXAPARIN INJ 40 MG/0.4 ML SYR SQ SCH ×2 (08:41→20:12)
[2021-03-31] MEDS ORDERED: ETOMIDATE 2 MG/ML 20 ML VIAL IV ONE (08:51)
[2021-03-31] MEDS ORDERED: ROCURONIUM BROMIDE 10 MG/ML 5 ML VIAL IV ONE (08:52)
[2021-03-31] MEDS ORDERED: RAPID SEQUENCE INDUCTION BAG ONE (08:58)
[2021-03-31] MEDS ORDERED: STAT IV Infusion **Titration per Protocol STA ×2 (09:04)
[2021-03-31] MEDS ORDERED: PROPOFOL IV EMULSION 10 MG/ML 100 ML VIAL IV ONE (09:13)
--- NOTE | 2021-03-31 09:18 | Critical Care Consultation ---
Date of Consultation March 31, 2021 Assessment & Plan (1) Acute respiratory failure with hypoxia: (2) Pneumonia due to 2019 novel coronavirus: 55-year-old male with COVID-19 viral pneumonia and essentially ARDS Neurologic: We will initiate the patient on propofol, fentanyl and neuromuscular blockade to promote ventilator synchrony. Pulmonary: We will initiate the patient on a lung protective ventilation strategy and a high PEEP and low FiO2 strategy. We will increase Decadron to 20 mg x 5 days and 10 mg x 10 days. We will prone the patient once he is intubated. Cardiovascular: No significant issues at present. We will ask anesthesia staff to place an arterial line and central venous line. Gastrointestinal: Start pantoprazole [address] OG tube. Transaminitis improved. Renal: Mild hyponatremia. BUN slightly elevated likely due to steroids. Infectious disease: No concerns for superimposed bacterial infection at this time. We will recheck a procalcitonin. CRP very elevated to 12.00 Hematologic: No issues Endocrine: ICU for hyperglycemia management Lines and tubes: IJ, arterial lne and ETT placed 03/31/21 VTE prophylaxis: Lovenox 40 mg BID CODE STATUS: Patient agreeable to intubation due to worsening respiratory failure. Currently a FULL code Family at bedside: None available Disposition: Remain in ICU I have personally spent 44 minutes of critical care time in the direct management of this patient. This is a life/limb threatening event. This includes time spent evaluating patient, direct bedside care, chart review, placing orders, interpretation of diagnostic studies, discussion with consultants, patient, and family members, as well as other required patient management activities. This time is exclusive of all separately billable procedures, and teaching time and separate from and in addition to any other critical care service time. Thank you for allowing us to participate in the care of this patient. (3) ARDS (adult respiratory distress syndrome): (4) Transaminitis: History of Present Illness Reason for Consultation: COVID-19 viral pneumonia and an ARDS-like picture. Attending Physician: Willie Diop MD History of Present Illness 55-year-old male from [place] who is currently incarcerated. ICU was consulted due to worsening respiratory failure. He is currently on BiPAP and proning. He is on 14/04 100% FiO2 and saturating in the low to mid 90s. Patient reports increasing shortness of breath. He has worsening tachypnea and is breathing at a rate of 34. He was seen earlier in this hospitalization by ADRIAN mitchell and Dr. Arita during pulmonary consultations. He did not receive baricitinib or tocilizumab due to transaminitis. He is currently on Decadron 6 mg daily. Patient denies any significant cough. Chest x-ray from 03/30/2021 reviewed with bilateral alveolar opacities consistent with COVID-19 in the small left pleural effusion with atelectasis. Allergies Allergy/AdvReac Type Severity Reaction Status Date / Time No Known Allergies Allergy Unverified 03/22/21 10:23 Home Medications Medication Instructions Recorded Confirmed Type amoxicillin 500 mg capsule 500 mg PO TID 03/22/21 03/22/21 History Patient History Medical History (Updated 03/31/21 @ 09:[address] MD) ARDS (adult respiratory distress syndrome) Patient denies medical problems Psoriasis Transaminitis Family History (Updated 03/22/21 @ 16:23 by Luis Mitcehll PA-C) Other Family history non-contributory Social History Smoking Status: Never smoker Second Hand Exposure: No; Do You Dip or Chew Tobacco: No; Hx Alcohol Use: No Hx Substance Use: No Preferred Language: Turkish Communication Ability: Impaired Communication Ability Comment: Dolly Driver service is needed with the language line physician practice market manager Communication Tools: Other Visual Impairment: No Limitations Hearing Ability: Normal Detasseling Crew Supervisor Required: Yes and No Beliefs That Will Affect Care: None marital status: Legally Current Living Situation: Other Current Living Situation Comment: [facility] How many Children do You have: 1 Feels Safe at Home: Yes Assistive Devices: BiPap and Oxygen - Continuous Review of Systems Review of Systems: All systems reviewed & are unremarkable except as noted in HPI & below Physical Exam Constitutional: WD/WN, vitals as above Neck: trachea midline, no thyromegaly Respiratory: + tachypneic; + abnormal respiratory effort and no respiratory distress Auscultation: + crackles and + wheezes Cardiovascular: RRR, no murmur, no edema Gastrointestinal (Abdomen): normal bowel sounds, soft, nontender, no hepato splenomegaly Musculoskeletal: Extremities: extremities normal to inspection Skin: no rashes, warm and dry Neurologic: Nonfocal exam Lymphatic: no cervical lymphadenopathy Results & Data Results & Data ([facility]) Vital Signs (Past 12 Hours) Vital Signs Temp Pulse Pulse Pulse Resp BP BP 03/31/21 09:00 106 H 108/80 03/31/21 08:55 109 H 03/31/21 08:50 109 H 03/31/21 07:55 36.7 C 102 H 25 H 03/31/21 07:02 109 H 25 H 03/31/21 04:02 37.0 C 128 H 20 118/78 03/31/21 03:14 113 H 03/31/21 02:16 113 H 27 H 03/30/21 23:36 36.9 C 106 H 26 H 112/75 03/30/21 22:18 112 H 30 H 03/30/21 22:17 112 H 30 H BP Pulse Ox 03/31/21 09:00 94 03/31/21 08:55 94 03/31/21 08:50 93 03/31/21 07:55 130/83 94 03/31/21 07:02 92 03/31/21 04:02 90 03/31/21 03:14 03/31/21 02:16 91 03/30/21 23:36 112/75 94 03/30/21 22:18 96 03/30/21 22:17 94 Coding Level of Care Code Critical Care 1st 30-74 mins Diagnoses Acute respiratory failure with hypoxia J96.01 Pneumonia due to 2019 novel coronavirus U07.1; J12.82 ARDS (adult respiratory distress syndrome) J80 Transaminitis R74.01
[2021-03-31] MEDS ORDERED: dexAMETHasone 20 MG in SYRINGE 0 ML IV SCH (09:30)
--- NOTE | 2021-03-31 09:49 | Procedure Note ---
Procedure Note Date of Service March 31, 2021 Note Central Line (Right IJ) Placement Note Consent: Informed consent obtained from the patient and designated proxy. The inherent risks, expected benefits, treatment alternatives, as well as the technical aspects of the procedure were discussed and a full explanation was given. All questions were answered. Procedure: The central line was placed in [facility], room 209 at the request of ICU team. A time out was performed verifying the correct patient with two identifiers, procedure, site, positioning, and equipment. Monitors were attached including EKG, pulse ox, and blood pressure. The patient was intubated prior to placement and premedicated with propofol. Prior to initiating the procedure, the proceduralist washed their hands. The proceduralist wore a surgical hat and mask as well as sterile gloves and gown. The right IJ was prepped with chlorhexidine and draped in sterile fashion. The patient was positioned in trendelenburg and the vein identified using ultrasound guidance. There was good return of nonpulsatile blood after needle placement. The vessel was transduced to confirm venous access. The guidewire threaded easily and was verified in the vein by ultrasound. The accessed vessel was dilated and a triple lumen catheter was introduced into the right IJ over the wire. A brief run of ectopy occurred with initial introduction of central line, but resolved when the wire was back out of vessel slightly. The guidewire was removed and each lumen of the catheter was aspirated and flushed. The catheter was sutured in place at 15 cm. An antibiotic disc was placed and the site covered in a sterile, occlusive dressing. Foard sterility caps were applied to all ports. Post-procedure: The patient was hemodynamically stable throughout and tolerated the procedure well without apparent complications. Post placement CXR was ordered. Mey Frey MD, PhD Anesthesiologist Coding
[2021-03-31] MEDS: propofoL 1,000 MG/100 ML VIAL IV SCH ×4 (10:00→23:48)
[2021-03-31] MEDS: fentaNYL DRIP 1,250 MCG/250 ML BAG IV SCH ×2 (10:00→20:10)
[2021-03-31] MEDS: CISATRACURIUM BESYLATE 40 MG in 0.9 % SODIUM CHLORIDE 80 ML IV SCH ×3 (10:31→20:05)
--- NOTE | 2021-03-31 11:14 | Procedure Note ---
Procedure Note Date of Service March 31, 2021 Note Request placed by ICU team to intubate pt due to worsening COVID respiratory failure. Informed patient of plan to place ETT after IV sedation and patient in agreement. Pt preoxygenated and given 40 mg etomidate and 200 mg of succinyl choline IV push. Immediately after fasciculations, 8.0 ETT placed orally utilizing glidescope #3. Tube placed on first attempt using a seldinger technique over an aintree and to 24 cm at the lips. Placement confirmed with CO2 detection and auscultation. Pt given 50 mg of rocuronium after succinylcholine recovery. Pt care resumed by ICU team. Mey Frey MD, PhD Anesthesiologist Coding
--- NOTE | 2021-03-31 11:19 | Procedure Note ---
Procedure Note Date of Service March 31, 2021 Note Radial arterial line placed at the request of ICU. Right wrist prepped with chlorhexidine and draped with sterile towels. 20 G angiocath placed under sterile technique utilizing sterile gloves, surgical hats and masks. Catheter threaded using seldinger technique with return of pulsatile, bright red blood. Site covered with occlusive dressing and taped in place. Waveform consistent with correct arterial placement. After placement, fingers of procedural hand had normal perfusion. Patient tolerated procedure well without complications. Mey Frey MD, PhD Anesthesiologist Coding
--- NOTE | 2021-03-31 11:20 | Procedure Note ---
Procedure Note Date of Service March 31, [address] in left hand on first attempt at the request of ICU. Prior to placement site cleaned with chlorhexidine. Placement confirmed with good blood return and IV site dressed with tegaderm. Mey Frey MD, PhD Anesthesiologist Coding
--- NOTE | 2021-03-31 11:22 | Procedure Note ---
Procedure Note Date of Service March 31, 2021 Note OG tube placed after intubation at request of ICU. OG tube advanced smoothly and easily to 50cm. Suctioned applied with return of gastric secretions. Suctioned discontinued at the request of bedside nursing. Mey Frey MD, PhD Anesthesiologist Coding
--- NOTE | 2021-03-31 11:25 | Procedure Note ---
Procedure Note Date of Service March 31, 2021 Note Rosenberg placed at the request of ICU team. Penis prepped with iodine and sterilely draped. Catheter inserted by DANIEL Simons with sterile gloves, hat and mask. Rosenberg catheter inserted at the meatus and advanced easily without resistance. Catheter advanced until return of yellow urine. Rosenberg balloon inflated with sterile saline and catheter connect to folly bag. Mey Frey MD, PhD Anesthesiologist Coding
[2021-03-31] MEDS: ARTIFICIAL TEARS OP OINT 3.5 GM TUBE OP SCH ×4 (11:30→23:49)
--- NOTE | 2021-03-31 11:56 | XRay Report ---
XR KUB/Abdomen 1 view CLINICAL HISTORY: confirmation of OG tube placement. COMPARISON STUDY: No previous studies for comparison. TECHNIQUE: Single view of the abdomen. FINDINGS: The bowel gas pattern is within normal limits without evidence for dilatation or obstruction. Tip of OG tube is in the upper body of the stomach. There is no evidence for organomegaly or gross intra-abd ominal mass. No abnormal calcifications are seen along the course of the urinary tracts bilaterally. No acute osseous pathology. IMPRESSION: 1.No acute intra-abdominal abnormality. Tip of OG tube is in the upper body of the stomach. ACT 112: Negative or not required by law. Electronically signed by: Ronald Antoine M.D. 03/31/2021 11:54 AM
--- NOTE | 2021-03-31 12:19 | XRay Report ---
XR chest 1V portable CLINICAL HISTORY: confirmation of central line placement. Evaluate for pneumothorax COMPARISON STUDY: 03/30/2021 TECHNIQUE: 1 view of the chest FINDINGS: Single frontal view of the chest demonstrates the heart to again be enlarged. A right jugular cathete r has been placed with its tip in the distal SVC. There is no evidence for pneumothorax. Bilateral in terstitial and alveolar opacities are again seen there is again evidence for left lower lobe atelecta sis/collapse and left pleural effusion. There is also suspicion of right pleural effusion on the curr ent study. There is no evidence for vascular congestion. There is no acute osseous pathology. IMPRESSION: 1. Interval placement of right jugular catheter with its tip in the distal SVC. No evidence for pneum othorax. 2. Bilateral interstitial and alveolar opacities are again seen along with left lower lobe atelectasi s/collapse and probable small bilateral pleural effusions. ACT 112: Negative or not required by law. Electronically signed by: Ronald Antoine M.D. 03/31/2021 12:18 PM
[2021-03-31] MEDS: PANTOprazole 40 MG in SYRINGE 0 ML IV SCH (13:12)
[2021-03-31] MEDS: dexAMETHasone 20 MG in DEXTROSE 5% 25 ML IV SCH (13:13)
[2021-03-31 13:30] LABS: iSTAT Art Bld Gas pCO2 Correct 78 mmHg (35-46); iSTAT Art Bld Gas pH Corrected 7.193 (7.35-7.45); iSTAT Arterial Blood Gas HCO3 30 meg/L (19-24); iSTAT Arterial Blood Gas pCO2 78 mmHg (35-46); iSTAT Arterial Blood Gas pH 7.19 (7.35-7.45); iSTAT Arterial Blood Gas pO2 76 mmHg (80-95); iSTAT Arterial Blood Gas pO2 C 76; iSTAT Carbon Dioxide 32 mmol/L (24-31); iSTAT FiO2 100 %; iSTAT Hematocrit 43 % (42-52); iSTAT Hemoglobin 14.6 g/dl (14.0-18.0); iSTAT Potassium 4.8 mmol/L (3.3-5.0); iSTAT Site Art Line; iSTAT Sodium 138 mmol/L (135-144)
[2021-03-31 16:26] LABS: iSTAT Art Bld Gas pCO2 Correct 87 mmHg (35-46); iSTAT Art Bld Gas pH Corrected 7.167 (7.35-7.45); iSTAT Arterial Blood Gas HCO3 32 meg/L (19-24); iSTAT Arterial Blood Gas pCO2 88 mmHg (35-46); iSTAT Arterial Blood Gas pH 7.16 (7.35-7.45); iSTAT Arterial Blood Gas pO2 72 mmHg (80-95); iSTAT Arterial Blood Gas pO2 C 71; iSTAT Carbon Dioxide 34 mmol/L (24-31); iSTAT FiO2 70 %; iSTAT Hematocrit 44 % (42-52); iSTAT Potassium 5.5 mmol/L (3.3-5.0); iSTAT Site L Brachial; iSTAT Sodium 138 mmol/L (135-144)
[2021-03-31 18:15] LABS: iSTAT Art Bld Gas pCO2 Correct 77 mmHg (35-46); iSTAT Art Bld Gas pH Corrected 7.226 (7.35-7.45); iSTAT Arterial Blood Gas HCO3 32 meg/L (19-24); iSTAT Arterial Blood Gas pCO2 77 mmHg (35-46); iSTAT Arterial Blood Gas pH 7.23 (7.35-7.45); iSTAT Arterial Blood Gas pO2 66 mmHg (80-95); iSTAT Arterial Blood Gas pO2 C 66; iSTAT Carbon Dioxide 34 mmol/L (24-31); iSTAT FiO2 70 %; iSTAT Hematocrit 43 % (42-52); iSTAT Hemoglobin 14.6 g/dl (14.0-18.0); iSTAT Potassium 5.7 mmol/L (3.3-5.0); iSTAT Site Art Line; iSTAT Sodium 137 mmol/L (135-144)
--- NOTE | 2021-03-31 19:31 | Hospitalist Progress Note ---
Date of Service March 31, 2021 Assessment & Plan (1) Pneumonia due to 2019 novel coronavirus: (2) Acute respiratory failure with hypoxia: Plan: Acute hypoxic respiratory failure COVID-19 Community-acquired pneumonia Not vaccinated against Covid, signs and symptoms since 16 days. --CTA:Cardiomegaly without pulmonary emboli. Extensive bilateral pulmonary opacities compatible with viral pneumonia. Mild reactive mediastinal adenopathy. -Procalcitonin 0.87> 0.37 -Completed empiric Rocephin course Lasix as needed On Lovenox for DVT prophylaxis Requiring high flow oxygen/BiPAP Appreciate pulmonology/Critical Care input Currently on 70% FiO2 Intubated on 03/31/21 On Nimbex Continue dexamethasone CRP 12 Vent management as per ICU team JOHNNA unknown baseline, unknown if h/o CKD Creatinine levels normalized Monitor renal function Hyperkalemia Monitor BMP Hepatic Steatosis Transaminitis Transaminitis likely secondary to Covid, LFTs trended down DVT Px: Lovenox SQ CODE STATUS: Full Code Admission and Anticipated Discharge Date Admission Date: March 22, 2021 Subjective Patient is seen and examined at bedside Intubated and Proned On Nimbex On fentanyl, propofol for sedation PEEP of 18, FiO2 70% Guards at bedside Review of Systems Review of Systems: Unobtainable due to endotracheal tube Physical Exam Physical Exam: Physical Exam: Vitals signs as noted above General Appearance:Moderately built and nourished, Intubated Head: normocephalic, Atraumatic Eyes: normal inspection, EOMI Neck: supple, Trachea midline Respiratory/Chest: Decreased breath sounds, CTA, No accessory muscle use Cardiovascular: S1, S2, No murmur Abdomen/GI:Soft, Non tender, Bowel sounds present Extremities/Musculoskeletal:normal inspection, no edema Neurologic/Psych:Sedated and Intubated Skin: normal color, warm Results & Data Results & Data ([facility]) Vital Signs (Past 12 Hours) Vital Signs Temp Pulse Pulse Resp BP BP Pulse Ox 03/31/21 17:30 37.1 C 108 H 32 H 141/85 H 93 03/31/21 17:00 37.0 C 119 H 32 H 137/80 92 03/31/21 16:30 112 H 32 H 138/82 91 03/31/21 16:04 105 H 33 H 92 03/31/21 16:00 105 H 32 H 146/78 H 91 03/31/21 15:30 103 H 32 H 146/78 H 91 03/31/21 15:00 93 H 32 H 92 03/31/21 14:51 109 H 30 H 91 03/31/21 14:30 100 H 30 H 90 03/31/21 14:00 98 H 30 H 124/76 91 03/31/21 13:30 99 H 30 H 130/79 91 03/31/21 13:00 109 H 30 H 91 03/31/21 12:30 110 H 30 H 91 03/31/21 12:00 112 H 30 H 134/75 93 03/31/21 11:44 111 H 30 H 92 03/31/21 11:30 114 H 26 H 90 03/31/21 11:00 120 H 26 H 164/107 H 89 L 03/31/21 10:30 122 H 30 H 169/98 H 89 L 03/31/21 10:15 107 H 26 H 88 L 03/31/21 10:00 128 H 26 H 154/101 H 89 L 03/31/21 09:45 117 H 26 H 90 03/31/21 09:30 79 26 H 03/31/21 09:15 106 H 26 H 93 03/31/21 09:00 106 H 108/80 94 03/31/21 08:55 109 H 94 03/31/21 08:50 109 H 93 03/31/21 07:55 36.7 C 102 H 25 H 130/83 94
[2021-04-01] MEDS: CISATRACURIUM BESYLATE 40 MG in 0.9 % SODIUM CHLORIDE 80 ML IV SCH ×5 (01:51→21:49)
[2021-04-01] MEDS: propofoL 1,000 MG/100 ML VIAL IV SCH ×8 (04:53→21:48)
[2021-04-01 05:02] LABS: iSTAT Arterial Blood Gas HCO3 34 meg/L (19-24); iSTAT Arterial Blood Gas pCO2 68 mmHg (35-46); iSTAT Arterial Blood Gas pH 7.31 (7.35-7.45); iSTAT Arterial Blood Gas pO2 68 mmHg (80-95); iSTAT Carbon Dioxide 36 mmol/L (24-31); iSTAT FiO2 60 %; iSTAT Site Art Line
[2021-04-01] MEDS: fentaNYL DRIP 1,250 MCG/250 ML BAG IV SCH ×3 (05:06→17:42)
[2021-04-01] MEDS: ARTIFICIAL TEARS OP OINT 3.5 GM TUBE OP SCH ×4 (07:14→20:53)
[2021-04-01 07:30] LABS: Hematocrit (blood only) 39.9 % (42-52); Hemoglobin 13.4 g/dL (14.0-18.0); Mean Corpuscular Hemoglobin 29.8 pg (25-34); Mean Corpuscular Hgb Conc 33.6 g/dL (32-36); Mean Corpuscular Volume 88.7 fL (80-100); Mean Platelet Volume 10.6 fL (7.4-10.4); Platelet Count 347 K/uL (130-400); RDW Coefficient of Variation 13.3 % (11.5-14.5); RDW Standard Deviation 43.4 fL (36.4-46.3); White Blood Count 6.54 K/uL (4.8-10.8)
[2021-04-01 08:19] LABS: BUN Creatinine Ratio 29.4 (10-20); C Reactive Protein 11.3 mg/dl (0-0.29); Calcium 8.9 mg/dl (8.5-10.1); Creatinine Clr Calc Pharmacy 94.4 ml/min; Est GFR (African American) 110.3 ml/min; Est GFR (Non-African American) 95.2 ml/min; Magnesium 2.5 mg/dl (1.8-2.4); Potassium 5.1 mmol/L (3.5-5.1)
--- NOTE | 2021-04-01 08:21 | XRay Report ---
XR chest 1V portable CLINICAL HISTORY: Respiratory failure. COMPARISON STUDY: Chest CT March 22, 2021. Chest radiograph March 31, 2021. FINDINGS: Tip of endotracheal tube is 4.8 cm above the [place]. Tip of nasogastric tube is within the proximal stomach. Sidehole of the nasogastric tube projects over the distal esophagus. Right internal jugular central line is in place. There is no pneumothorax. There is subcutaneous gas within the lef t lower neck. Note is made of extensive pneumomediastinum, greater on the left. Extensive bilateral a irspace opacities persist. There is possible pulmonary interstitial emphysema. No pleural effusion is identified. Cardiac size is stable. Calcified right hilar lymph node is incidentally noted. IMPRESSION: 1. Satisfactory positioning of the endotracheal tube. Tip of nasogastric tube within the proximal sto mach. The tube could be advanced several centimeters. 2. Extensive pneumomediastinum, greater on the left. This finding will be called/faxed to the orderin g provider at time of dictation. Associated subcutaneous gas within the lower neck. No pneumothorax. Possible associated pulmonary interstitial emphysema. 2. Persistent extensive bilateral airspace opacities suggestive of viral pneumonia. ACT 112: Negative or not required by law. Electronically signed by: Jamie Gonzales M.D. 04/01/2021 8:20 AM
[2021-04-01] MEDS: dexAMETHasone 20 MG in DEXTROSE 5% 25 ML IV SCH (09:16)
[2021-04-01] MEDS: SODIUM CHLORIDE 0.65% NA SOLN 45 ML (OCEAN) SCH ×2 (09:17→20:51)
[2021-04-01] MEDS: ENOXAPARIN INJ 40 MG/0.4 ML SYR SQ SCH ×2 (09:18→20:50)
[2021-04-01] MEDS: PANTOprazole 40 MG in SYRINGE 0 ML IV SCH (11:24)
--- NOTE | 2021-04-01 12:47 | Critical Care Progress Note ---
Date of Service April 01, 2021 Assessment & Plan (1) Hypoxia: (2) Pneumonia due to 2019 novel coronavirus: Plan: (1) Acute respiratory failure with hypoxia: (2) Pneumonia due to 2019 novel coronavirus: 55-year-old male with COVID-19 viral pneumonia and essentially ARDS Neurologic: Sedated and pharmacological paralyzed for mechanical ventilation Continue with sedation and paralyzation today for ventilator support. [facility] ICU unable to assess Pulmonary: COVID 19 pneumonia, hypoxic acute respiratory failure, pneumomediastinum We will initiate the patient on a lung protective ventilation strategy and a high PEEP and low FiO2 strategy. We will increase Decadron to 20 mg x 5 days and 10 mg x 10 days. Supinated this morning. - Pneumomediastinum- decreased PEEP and FIO2 increased to 80-100%. No evidence of pneumothorax on imaging. This should reabsorb Cardiovascular: hypotension - No further evidence of organ dysfunction, transaminitis improved. WBC normal- likely related to sedation Gastrointestinal: Transaminitis Start pantoprazole [address] OG tube. Transaminitis improved. - Start Tube feedings tomorrow noting vasopressor dosing support Renal: No acute process Hyponatremia resolved, improved in renal indices Infectious disease: No concerns for superimposed bacterial infection at this time. We will recheck a procalcitonin. CRP very elevated to 12.00 Hematologic: No issues Endocrine: ICU for hyperglycemia management Lines and tubes: IJ, arterial lne and ETT placed 03/31/21, cancino to gravity, and OGT - continue use of these lines VTE prophylaxis: Lovenox 40 mg BID CODE STATUS: FULL CODE Disposition: Remain in ICU I have personally spent 30 minutes of critical care time in the direct management of this patient. This is a life/limb threatening event. This includes time spent evaluating patient, direct bedside care, chart review, placing orders, interpretation of diagnostic studies, discussion with consultants, patient, and family members, as well as other required patient management activities. This time is exclusive of all separately billable procedures, and teaching time and separate from and in addition to any other critical care service time. Thank you for allowing us to participate in the care of this patient. (3) ARDS (adult respiratory distress syndrome): (4) Transaminitis: Admission and Anticipated Discharge Date Admission Date: March 22, 2021 Subjective HD #10, ICU intubated, sedated, pharmacological paralysis day #1 for COVID 19 hypoxic respiratory failure with refractory hypoxemia. Patient was proned after intubation. He was spined this morning at 0900. His CXR this morning reveals increase in pneumomediastinum without evidence of pneumothorax. His FIO2 was increased to 80-100% and PEEP was decreased from 12-10-8-6. His SPo2 is doing well at 93-95%. There is small amount of SubQ emphysema to the left upper chest. CT scan on admission was negative for PE. He is continuing with DEXAARDS dosing of 20mg for 5 days then followed by 10mg. He has remained boderline on his MAPS overnight, will add on Levophed for MAPS >65. Continue supportive efforts. Bedside rounds were performed with the RT and the RN this morning. Review of Systems Review of Systems: Unable to perform secondary to intubation and sedation Physical Exam Physical Exam: PHYSICAL EXAM: N: [facility] ICU unable to test, Sedated for mechanical, Neuro: AAO x 3, speech clear and appropriate, strength intact bilaterally 5/5, sensation intact and equal all extremities and dermatomes, no pronator drift Chest: equal rise and fall of the chest, no accessory muscle use, no heaves or thrills, scattered rhonchi bilaterally throughout to auscultation, mechanically ventliated Cardiac: Regular rate and rhythm, telemetry reviewed, skin warm dry, cap refill <3 seconds, peripheral pulses +2 no JVD, no murmur, GI: NABS x 4 quadrants, soft, nontender to palpation, no rebound, guarding or tenderness : Spontaneously voiding, no pain, no CVA tenderness, Extremities: Normal inspection, no peripheral edema or erythema, calfs nontender to palpation Psych: Normal mood and affect Results & Data Results & Data ([facility]) Vital Signs (Past 12 Hours) Vital Signs Temp Pulse Resp BP Pulse Ox 04/01/21 11:16 73 32 H 92 04/01/21 09:30 36.4 C L 81 32 H 93/61 L 97 04/01/21 09:14 32 H 04/01/21 09:00 36.3 C L 81 32 H 99/67 L 94 04/01/21 08:30 36.4 C L 85 32 H 104/67 94 04/01/21 08:00 36.5 C 92 H 32 H 99/66 L 94 04/01/21 07:30 36.5 C 89 32 H 98/65 L 93 04/01/21 07:26 89 32 H 93 04/01/21 06:00 36.8 C 95 H 32 H 97/66 L 93 04/01/21 05:30 36.8 C 97 H 32 H 97/62 L 93 04/01/21 05:00 36.9 C 94 H 32 H 94/62 L 93 04/01/21 04:30 37.0 C 97 H 32 H 93/63 L 93 04/01/21 04:00 37.0 C 99 H 32 H 94/65 L 93 04/01/21 03:50 104 H 32 H 93 04/01/21 03:30 36.9 C 101 H 32 H 98/65 L 93 04/01/21 03:00 36.9 C 104 H 32 H 104/65 93 04/01/21 02:30 37.0 C 104 H 32 H 99/65 L 93 04/01/21 02:00 37.4 C 109 H 32 H 102/64 93 04/01/21 01:30 37.5 C 111 H 32 H 101/69 92 04/01/21 01:00 37.6 C H 113 H 32 H 107/66 92 Diagnostic Findings XR chest 1V portable CLINICAL HISTORY: Respiratory failure. COMPARISON STUDY: Chest CT March 22, 2021. Chest radiograph March 31, 2021. FINDINGS: Tip of endotracheal tube is 4.8 cm above the wesley. Tip of nasogastric tube is within the proximal stomach. Sidehole of the nasogastric tube projects over the distal esophagus. Right internal jugular central line is in place. There is no pneumothorax. There is subcutaneous gas within the left lower neck. Note is made of extensive pneumomediastinum, greater on the left. Extensive bilateral airspace opacities persist. There is possible pulmonary interstitial emphysema. No pleural effusion is identified. Cardiac size is stable. Calcified right hilar lymph node is incidentally noted. IMPRESSION: 1. Satisfactory positioning of the endotracheal tube. Tip of nasogastric tube within the proximal stomach. The tube could be advanced several centimeters. 2. Extensive pneumomediastinum, greater on the left. This finding will be called/faxed to the ordering provider at time of dictation. Associated subcutaneous gas within the lower neck. No pneumothorax. Possible associated pulmonary interstitial emphysema. 2. Persistent extensive bilateral airspace opacities suggestive of viral pneumonia. Coding Level of Care Code Critical Care 1st 30-74 mins Diagnoses Hypoxia R09.02 Pneumonia due to 2019 novel coronavirus U07.1; J12.82
[2021-04-01] MEDS ORDERED: STAT IV Infusion **Titration per Protocol STA (13:26)
[2021-04-01] MEDS: PEPTAMEN INTENSE VHP 1.0 CAL 1,000 ML BAG GT SCH (17:35)
[2021-04-01] MEDS: NOREPINEPHRINE/D5W 8 MG/508 ML BAG IV SCH (17:59)
--- NOTE | 2021-04-01 19:30 | Hospitalist Progress Note ---
Date of Service April 01, 2021 Assessment & Plan (1) Pneumonia due to 2019 novel coronavirus: (2) Acute respiratory failure with hypoxia: Plan: Acute hypoxic respiratory failure COVID-19 Community-acquired pneumonia Not vaccinated against Covid, signs and symptoms since 16 days. --CTA:Cardiomegaly without pulmonary emboli. Extensive bilateral pulmonary opacities compatible with viral pneumonia. Mild reactive mediastinal adenopathy. -Procalcitonin 0.87> 0.37 -Completed empiric Rocephin course Lasix as needed On Lovenox for DVT prophylaxis Requiring high flow oxygen/BiPAP Appreciate pulmonology/Critical Care input Currently on 70% FiO2 Intubated on 03/31/21 On Nimbex Continue dexamethasone Vent management as per ICU team Pressor dependent Started on tube feeds On Lovenox for DVT prophylaxis JOHNNA unknown baseline, unknown if h/o CKD Creatinine levels normalized Monitor renal function Hyperkalemia Monitor BMP Hepatic Steatosis Transaminitis Transaminitis likely secondary to Covid, LFTs trended down DVT Px: Lovenox SQ CODE STATUS: Full Code Admission and Anticipated Discharge Date Admission Date: March 22, 2021 Subjective Patient is seen and examined at bedside Intubated and sedated On Nimbex On fentanyl, propofol for sedation FiO2 70% And on tube feeds Also started on Levophed Review of Systems Review of Systems: Unobtainable due to endotracheal tube Physical Exam Physical Exam: Physical Exam: Vitals signs as noted above General Appearance:Moderately built and nourished, Intubated Head: normocephalic, Atraumatic Eyes: normal inspection, EOMI Neck: supple, Trachea midline Respiratory/Chest: Decreased breath sounds, CTA, No accessory muscle use Cardiovascular: S1, S2, No murmur Abdomen/GI:Soft, Non tender, Bowel sounds present Extremities/Musculoskeletal:normal inspection, no edema Neurologic/Psych:Sedated and Intubated Skin: normal color, warm Results & Data Results & Data ([facility]) Vital Signs (Past 12 Hours) Vital Signs Temp Pulse Resp BP Pulse Ox 04/01/21 18:30 84 32 H 90 04/01/21 18:00 88 32 H 91/59 L 91 04/01/21 17:30 93 H 32 H 96/60 L 89 L 04/01/21 17:00 37 C 96 H 32 H 99/63 L 89 L 04/01/21 16:30 101 H 32 H 109/65 89 L 04/01/21 16:00 116 H 34 H 152/93 H 90 04/01/21 15:30 109 H 33 H 157/89 H 91 04/01/21 15:00 37 C 94 H 32 H 147/88 H 93 04/01/21 14:30 66 32 H 119/76 94 04/01/21 14:19 67 32 H 93 04/01/21 14:08 71 32 H 92 04/01/21 14:00 37 C 70 32 H 88/59 L 93 04/01/21 13:00 36.8 C 74 32 H 94/53 L 93 04/01/21 12:30 36.5 C 72 32 H 86/58 L 93 04/01/21 12:00 37 C 74 32 H 87/61 L 92 04/01/21 11:30 36.4 C L 74 32 H 88/61 L 92 04/01/21 11:16 73 32 H 92 04/01/21 11:00 37.1 C 74 32 H 84/59 L 92 04/01/21 10:30 36.3 C L 76 32 H 84/59 L 91 04/01/21 10:00 36.9 C 80 32 H 88/60 L 93 04/01/21 09:30 36.4 C L 81 32 H 93/61 L 97 04/01/21 09:14 32 H 04/01/21 09:00 36.8 C 81 32 H 99/67 L 94 04/01/21 08:30 36.4 C L 85 32 H 104/67 94 04/01/21 08:00 37 C 92 H 32 H 99/66 L 94 04/01/21 07:30 36.5 C 89 32 H 98/65 L 93 04/01/21 07:26 89 32 H 93 Laboratory Results Short CBC 04/01/21 Range/Units 06:24 WBC 6.54 (4.8-10.8) K/uL Hgb 13.4 L (14.0-18.0) g/dL Hct 39.9 L (42-52) % Plt Count 347 (130-400) K/uL BMP 04/01/21 06:24 Sodium 140 Potassium 5.1 D Chloride 105 Carbon Dioxide 29 BUN 27 H Creatinine 0.91 Glucose 129 H Calcium 8.9
--- NOTE | 2021-04-01 19:46 | XRay Report ---
XR chest 1V portable CLINICAL HISTORY: resp failure, pneumo COMPARISON STUDY: Chest radiograph April 01, 2021 at 7:29 AM. FINDINGS: The tip of the endotracheal tube is 4.1 cm above the wesley. Tip of nasogastric tube is bel ow the lower aspect of this image but at least within the distal body of the stomach. Right internal jugular central line remains in place. Soft tissue gas within the left lower neck is noted. Pneumomed iastinum is again noted. This may have decreased since prior exam. Extensive bilateral airspace opaci ties are noted. Air bronchograms are noted. There is a possible small right pleural effusion. No pneu mothorax is identified. IMPRESSION: 1. Satisfactory positioning of lines and tubes. 2. Redemonstration of pneumomediastinum, likely decreased since prior exam. Soft tissue gas within th e neck. No pneumothorax identified. 3. Mild increase in extensive bilateral airspace opacities which favor viral pneumonia. 4. Possible small right pleural effusion. ACT 112: Negative or not required by law. Electronically signed by: Jamie Gonzales M.D. 04/01/2021 7:44 PM
[2021-04-01] MEDS: PROPOFOL BOLUS FROM BAG IV PRN ×2 (22:04→22:41)
[2021-04-02] MEDS: fentaNYL DRIP 1,250 MCG/250 ML BAG IV SCH ×5 (01:09→20:09)
[2021-04-02] MEDS: propofoL 1,000 MG/100 ML VIAL IV SCH ×5 (02:05→20:12)
[2021-04-02] MEDS: ARTIFICIAL TEARS OP OINT 3.5 GM TUBE OP SCH ×6 (02:08→20:10)
[2021-04-02] MEDS: CISATRACURIUM BESYLATE 40 MG in 0.9 % SODIUM CHLORIDE 80 ML IV SCH ×4 (03:19→17:02)
[2021-04-02 05:31] LABS: iSTAT Art Bld Gas pCO2 Correct 61 mmHg (35-46); iSTAT Art Bld Gas pH Corrected 7.343 (7.35-7.45); iSTAT Arterial Blood Gas HCO3 33 meg/L (19-24); iSTAT Arterial Blood Gas pCO2 62 mmHg (35-46); iSTAT Arterial Blood Gas pH 7.34 (7.35-7.45); iSTAT Arterial Blood Gas pO2 73 mmHg (80-95); iSTAT Arterial Blood Gas pO2 C 71; iSTAT Carbon Dioxide 35 mmol/L (24-31); iSTAT FiO2 90 %; iSTAT Hematocrit 36 % (42-52); iSTAT Hemoglobin 12.2 g/dl (14.0-18.0); iSTAT Potassium 4.7 mmol/L (3.3-5.0); iSTAT Site Art Line; iSTAT Sodium 141 mmol/L (135-144)
--- NOTE | 2021-04-02 08:26 | XRay Report ---
XR chest 1V portable CLINICAL HISTORY: pneumomediastinum COMPARISON STUDY: Chest radiograph April 01, 2021 at 7:12 PM. FINDINGS: Tip of endotracheal tube is 4.2 cm the wesley. Tip of the nasal gastric tube is below the l ower aspect of this image but at least within the distal body of the stomach. Right internal jugular central line remains in place. Extensive pneumomediastinum persists. No definite pneumothorax. Soft t issue gas within neck is again noted. There is cardiomegaly. Extensive bilateral airspace opacities p ersist. IMPRESSION: 1. Satisfactory positioning of lines and tubes. 2. Persistent extensive pneumomediastinum. Associated soft tissue gas within the neck. 3. No significant change in extensive bilateral airspace opacities suggestive of viral pneumonia. ACT 112: Negative or not required by law. Electronically signed by: Jamie Gonzales M.D. 04/02/2021 8:25 AM
[2021-04-02 08:41] LABS: Basophils # (auto) 0.01 K/uL (0-0.2); Basophils % (auto) 0.2 %; Hemoglobin 13.1 g/dL (14.0-18.0); Immature Granulocytes # (auto) 0.03 K/uL (0.00-0.02); Immature Granulocytes % (auto) 0.5 %; Lymphocytes # (auto) 1.69 K/uL (1.2-3.4); Lymphocytes % (auto) 26.4 %; Mean Corpuscular Hgb Conc 33.6 g/dL (32-36); Mean Corpuscular Volume 89.2 fL (80-100); Mean Platelet Volume 10.9 fL (7.4-10.4); Monocytes # (auto) 0.19 K/uL (0.11-0.59); Neutrophils # (auto) 4.49 K/uL (1.4-6.5); Neutrophils % (auto) 69.9 %; Platelet Count 370 K/uL (130-400); RDW Coefficient of Variation 13.3 % (11.5-14.5); RDW Standard Deviation 43.4 fL (36.4-46.3); Red Blood Count 4.37 M/uL (4.7-6.1); White Blood Count 6.41 K/uL (4.8-10.8)
[2021-04-02] MEDS: SODIUM CHLORIDE 0.65% NA SOLN 45 ML (OCEAN) SCH ×2 (08:49→20:12)
[2021-04-02] MEDS: dexAMETHasone 20 MG in DEXTROSE 5% 25 ML IV SCH (08:49)
[2021-04-02] MEDS: ENOXAPARIN INJ 40 MG/0.4 ML SYR SQ SCH ×2 (08:50→20:11)
[2021-04-02 09:07] LABS: BUN Creatinine Ratio 37.3 (10-20); Calcium 8.5 mg/dl (8.5-10.1); Creatinine Clr Calc Pharmacy 85.8 ml/min; Est GFR (African American) 108.9 ml/min; Magnesium 2.4 mg/dl (1.8-2.4); Potassium 4.4 mmol/L (3.5-5.1)
[2021-04-02 09:11] LABS: Phosphorus 2.8 mg/dl (2.5-4.9)
--- NOTE | 2021-04-02 11:45 | Critical Care Progress Note ---
Date of Service April 02, 2021 Assessment & Plan (1) Hypoxia: (2) Pneumonia due to 2019 novel coronavirus: Plan: (1) Acute respiratory failure with hypoxia: (2) Pneumonia due to 2019 novel coronavirus: 55-year-old male with COVID-19 viral pneumonia and essentially ARDS Neurologic: Sedated and pharmacological paralyzed for mechanical ventilation Continue with sedation and paralyzation today for ventilator support. [facility] ICU unable to assess Continue with paralytic to prevent coughing or fighting the ventilator with pneumomediastinum Pulmonary: COVID 19 pneumonia, hypoxic acute respiratory failure, pneumo mediastinum We will initiate the patient on a lung protective ventilation strategy and a high PEEP and low FiO2 strategy. We will increase Decadron to 20 mg x 5 days and 10 mg x 10 days. Supinated this morning. - Pneumomediastinum- decreased PEEP and FIO2 increased to 80-100%. No evidence of pneumothorax on imaging. This should reabsorb- - Worsening hypoxia today- proning attempted last evening- significant hypoxia with attempt- returned to supination. Cardiovascular: hypotension - No further evidence of organ dysfunction, transaminitis improved. WBC normal- likely related to sedation Gastrointestinal: Transaminitis Start pantoprazole [address] OG tube. Transaminitis improved. - Start Tube feedings tomorrow noting vasopressor dosing support Renal: No acute process Hyponatremia resolved, improved in renal indices Infectious disease: No concerns for superimposed bacterial infection at this time. We will recheck a procalcitonin. CRP very elevated to 12.00 Hematologic: No issues Endocrine: ICU for hyperglycemia management Lines and tubes: IJ, arterial lne and ETT placed 03/31/21, cancino to gravity, and OGT - continue use of these lines VTE prophylaxis: Lovenox 40 mg BID CODE STATUS: FULL CODE Disposition: Remain in ICU I have personally spent 35 minutes of critical care time in the direct m anagement of this patient. This is a life/limb threatening event. This includes time spent evaluating patient, direct bedside care, chart review, placing orders, interpretation of diagnostic studies, discussion with consultants, patient, and family members, as well as other required patient management activities. This time is exclusive of all separately billable procedures, and teaching time and separate from and in addition to any other critical care service time. Thank you for allowing us to participate in the care of this patient. (3) ARDS (adult respiratory distress syndrome): (4) Transaminitis: Admission and Anticipated Discharge Date Admission Date: March 22, 2021 Subjective HD #11, ICU intubated Day #2, sedated, pharmacological paralysis day #1 for COVID 19 hypoxic respiratory failure with refractory hypoxemia. Patient was proned after intubation. He was spined this morning at 0900. His CXR this morning continues tp reval increase in pneumomediastinum without evidence of pneumothorax. His FIO2 was increased to 80-100% and PEEP was decreased from 12-10-8-6. His SPo2 is doing well at 93-95%. There is small amount of SubQ emphysema to the left upper chest. CT scan on admission was negative for PE. He is continuing with DEXAARDS dosing of 20mg for 5 days then followed by 10mg. Continue supportive efforts remains with high mortality. Bedside rounds were performed with the RT and the RN this morning. Review of Systems Review of Systems: Unable to perform secondary to intubation and sedation Physical Exam Physical Exam: PHYSICAL EXAM: N: [facility] ICU unable to test, Sedated for mechanical, Neuro: AAO x 3, speech clear and appropriate, strength intact bilaterally 5/5, sensation intact and equal all extremities and dermatomes, no pronator drift Chest: equal rise and fall of the chest, no accessory muscle use, no heaves or thrills, scattered rhonchi bilaterally throughout to auscultation, mechanically ventilated Cardiac: Regular rate and rhythm, telemetry reviewed, skin warm dry, cap refill <3 seconds, peripheral pulses +2 no JVD, no murmur, GI: NABS x 4 quadrants, soft, nontender to palpation, no rebound, guarding or tenderness : Spontaneously voiding, no pain, no CVA tenderness, Extremities: Normal inspection, no peripheral edema or erythema, calfs nontender to palpation, subq emphysema left upper chest and neck Psych: Normal mood and affect Results & Data Results & Data ([facility]) Vital Signs (Past 12 Hours) Vital Signs Temp Pulse Resp BP Pulse Ox 04/02/21 10:59 80 32 H 91 04/02/21 09:30 37.4 C 107 H 32 H 146/88 H 92 04/02/21 09:00 37.3 C 105 H 32 H 127/77 90 04/02/21 08:30 97 H 32 H 164/84 H 89 L 04/02/21 08:00 37.1 C 75 33 H 138/77 89 L 04/02/21 07:55 73 32 H 90 04/02/21 07:30 70 32 H 140/81 93 04/02/21 04:50 36.6 C 04/02/21 04:15 68 32 H 93 04/02/21 04:00 73 32 H 95/59 L 93 04/02/21 03:30 72 32 H 93/58 L 93 04/02/21 03:00 77 32 H 93/60 L 93 04/02/21 02:30 74 32 H 89/58 L 93 04/02/21 02:00 81 32 H 94/58 L 93 04/02/21 01:30 83 32 H 96/58 L 92 04/02/21 01:00 87 32 H 102/60 92 04/02/21 00:30 84 32 H 106/62 92 04/02/21 00:00 87 32 H 112/63 92 Laboratory Results Abnormal lab results 04/01/21 04/01/21 04/01/21 Range/Units 12:45 16:10 21:19 RBC (4.7-6.1) M/uL Hgb (14.0-18.0) g/dL POC Hgb (14.0-18.0) g/dl Hct (42-52) % POC Hct (42-52) % MPV (7.4-10.4) fL Immature Gran # (Auto) (0.00-0.02) K/uL POC pH (7.35-7.45) POC pCO2 (35-46) mmHg POC pO2 (80-95) mmHg POC HCO3 (19-24) rowdy/L POC Total CO2 (24-31) mmol/L POC Base Excess (-9-1.8) rowdy/L ABG pH (Temp Correct) (7.35-7.45) ABG pCO2 (Temp Corrct (35-46) mmHg BUN (7-18) mg/dl BUN/Creatinine Ratio (10-20) Glucose (70-99) mg/dl POC Glucose 129 H (70-99) mg/dl POC Glucose (other) 133 H 145 H (70-99) mg/dl 12/05/21 12/05/21 12/05/21 Range/Units 04:43 07:49 07:49 RBC 4.37 L (4.7-6.1) M/uL Hgb 13.1 L (14.0-18.0) g/dL POC Hgb 12.2 L (14.0-18.0) g/dl Hct 39.0 L (42-52) % POC Hct 36 L (42-52) % MPV 10.9 H (7.4-10.4) fL Immature Gran # (Auto) 0.03 H (0.00-0.02) K/uL POC pH 7.34 L (7.35-7.45) POC pCO2 62 H (35-46) mmHg POC pO2 73 L (80-95) mmHg POC HCO3 33 H (19-24) rowdy/L POC Total CO2 35 H (24-31) mmol/L POC Base Excess 8.0 H (-9-1.8) rowdy/L ABG pH (Temp Correct) 7.343 L (7.35-7.45) ABG pCO2 (Temp Corrct 61 H (35-46) mmHg BUN 34 H (7-18) mg/dl BUN/Creatinine Ratio 37.3 H (10-20) Glucose 105 H (70-99) mg/dl POC Glucose (70-99) mg/dl POC Glucose (other) (70-99) mg/dl Diagnostic Findings XR chest 1V portable CLINICAL HISTORY: pneumomediastinum COMPARISON STUDY: Chest radiograph April 01, 2021 at 7:12 PM. FINDINGS: Tip of endotracheal tube is 4.2 cm the wesley. Tip of the nasal gastric tube is below the lower aspect of this image but at least within the distal body of the stomach. Right internal jugular central line remains in place. Extensive pneumomediastinum persists. No definite pneumothorax. Soft tissue gas within neck is again noted. There is cardiomegaly. Extensive bilateral airspace opacities persist. IMPRESSION: 1. Satisfactory positioning of lines and tubes. 2. Persistent extensive pneumomediastinum. Associated soft tissue gas within the neck. 3. No significant change in extensive bilateral airspace opacities suggestive of viral pneumonia. ACT 112: Negative or not required by law. Coding Level of Care Code Critical Care 1st 30-74 mins Diagnoses Hypoxia R09.02 Pneumonia due to 2019 novel coronavirus U07.1; J12.82
[2021-04-02] MEDS: PANTOprazole 40 MG in SYRINGE 0 ML IV SCH (12:22)
[2021-04-02] MEDS: NOREPINEPHRINE/D5W 8 MG/508 ML BAG IV SCH (14:21)
--- NOTE | 2021-04-02 16:50 | Hospitalist Progress Note ---
Date of Service April 02, 2021 Assessment & Plan (1) Pneumonia due to 2019 novel coronavirus: (2) Acute respiratory failure with hypoxia: Plan: Acute hypoxic respiratory failure COVID-19 Community-acquired pneumonia Not vaccinated against Covid, signs and symptoms since 16 days. --CTA:Cardiomegaly without pulmonary emboli. Extensive bilateral pulmonary opacities compatible with viral pneumonia. Mild reactive mediastinal adenopathy. -Procalcitonin 0.87> 0.37 -Completed empiric Rocephin course Lasix as needed On Lovenox for DVT prophylaxis Appreciate pulmonology/Critical Care input Intubated on 03/31/21 On Nimbex Continue dexamethasone Vent management as per ICU team weaned off of Pressor On tube feeds On Lovenox for DVT prophylaxis 8 of PEEP, 90% FiO2 Chest x-ray showed persistent extensive pneumomediastinum, subcutaneous e mphysema JOHNNA unknown baseline, unknown if h/o CKD Creatinine levels normalized Monitor renal function Hyperkalemia Resolved Monitor BMP Hepatic Steatosis Transaminitis Transaminitis likely secondary to Covid, LFTs trended down DVT Px: Lovenox SQ CODE STATUS: Full Code Admission and Anticipated Discharge Date Admission Date: March 22, 2021 Subjective Patient is seen and examined at bedside Remains Intubated On Nimbex Chest x-ray showed persistent pneumomediastinum, subcutaneous emphysema Currently on 8 of PEEP, 90% FiO2 Review of Systems Review of Systems: All systems reviewed & are unremarkable except as noted in Subjective Physical Exam Physical Exam: Physical Exam: Vitals signs as noted above General Appearance:Moderately built and nourished, Intubated Head: normocephalic, Atraumatic Eyes: normal inspection, EOMI Neck: supple, Trachea midline Respiratory/Chest: Decreased breath sounds, CTA, No accessory muscle use Cardiovascular: S1, S2, No murmur Abdomen/GI:Soft, Non tender, Bowel sounds present Extremities/Musculoskeletal:normal inspection, no edema Neurologic/Psych:Sedated and Intubated Skin: normal color, warm Results & Data Results & Data ([facility]) Vital Signs (Past 12 Hours) Vital Signs Temp Pulse Resp BP Pulse Ox 04/02/21 14:29 72 32 H 91 04/02/21 10:59 80 32 H 91 04/02/21 09:30 37.4 C 107 H 32 H 146/88 H 92 04/02/21 09:00 37.3 C 105 H 32 H 127/77 90 04/02/21 08:30 97 H 32 H 164/84 H 89 L 04/02/21 08:00 37.1 C 75 33 H 138/77 89 L 04/02/21 07:55 73 32 H 90 04/02/21 07:30 70 32 H 140/81 93 04/02/21 04:50 36.6 C Laboratory Results Short CBC 04/02/21 Range/Units 07:49 WBC 6.41 (4.8-10.8) K/uL Hgb 13.1 L (14.0-18.0) g/dL Hct 39.0 L (42-52) % Plt Count 370 (130-400) K/uL BMP 04/02/21 07:49 Sodium 142 Potassium 4.4 Chloride 107 Carbon Dioxide 28 BUN 34 H Creatinine 0.92 Glucose 105 H Calcium 8.5
[2021-04-02] MEDS: PEPTAMEN INTENSE VHP 1.0 CAL 1,000 ML BAG GT SCH (17:02)
[2021-04-03] MEDS: ARTIFICIAL TEARS OP OINT 3.5 GM TUBE OP SCH ×6 (01:06→21:47)
[2021-04-03] MEDS: CISATRACURIUM BESYLATE 40 MG in 0.9 % SODIUM CHLORIDE 80 ML IV SCH ×5 (01:06→21:45)
[2021-04-03] MEDS: propofoL 1,000 MG/100 ML VIAL IV SCH ×8 (02:19→21:47)
[2021-04-03 05:32] LABS: iSTAT Art Bld Gas pCO2 Correct 55 mmHg (35-46); iSTAT Art Bld Gas pH Corrected 7.374 (7.35-7.45); iSTAT Arterial Blood Gas HCO3 32 meg/L (19-24); iSTAT Arterial Blood Gas pCO2 55 mmHg (35-46); iSTAT Arterial Blood Gas pH 7.38 (7.35-7.45); iSTAT Arterial Blood Gas pO2 63 mmHg (80-95); iSTAT Arterial Blood Gas pO2 C 65; iSTAT Carbon Dioxide 34 mmol/L (24-31); iSTAT FiO2 80 %; iSTAT Hematocrit 35 % (42-52); iSTAT Hemoglobin 11.9 g/dl (14.0-18.0); iSTAT Potassium 3.9 mmol/L (3.3-5.0); iSTAT Site Art Line; iSTAT Sodium 143 mmol/L (135-144)
[2021-04-03] MEDS: PROPOFOL BOLUS FROM BAG IV PRN (05:33)
[2021-04-03 06:21] LABS: Basophils # (auto) 0.01 K/uL (0-0.2); Basophils % (auto) 0.2 %; Eosinophils # (auto) 0.02 K/uL (0-0.5); Eosinophils % (auto) 0.3 %; Hematocrit (blood only) 39.2 % (42-52); Hemoglobin 13.1 g/dL (14.0-18.0); Immature Granulocytes # (auto) 0.03 K/uL (0.00-0.02); Immature Granulocytes % (auto) 0.5 %; Lymphocytes # (auto) 1.73 K/uL (1.2-3.4); Lymphocytes % (auto) 29.5 %; Mean Corpuscular Hemoglobin 29.7 pg (25-34); Mean Corpuscular Hgb Conc 33.4 g/dL (32-36); Mean Corpuscular Volume 88.9 fL (80-100); Mean Platelet Volume 10.5 fL (7.4-10.4); Monocytes % (auto) 3.4 %; Neutrophils # (auto) 3.87 K/uL (1.4-6.5); Neutrophils % (auto) 66.1 %; Platelet Count 335 K/uL (130-400); RDW Coefficient of Variation 13.2 % (11.5-14.5); RDW Standard Deviation 43.3 fL (36.4-46.3); Red Blood Count 4.41 M/uL (4.7-6.1); White Blood Count 5.86 K/uL (4.8-10.8)
[2021-04-03] MEDS: fentaNYL DRIP 1,250 MCG/250 ML BAG IV SCH ×4 (06:24→17:59)
[2021-04-03 06:57] LABS: Calcium 8.8 mg/dl (8.5-10.1); Est GFR (Non-African American) 99.3 ml/min; Magnesium 2.5 mg/dl (1.8-2.4); Potassium 3.8 mmol/L (3.5-5.1)
[2021-04-03] MEDS: SODIUM CHLORIDE 0.65% NA SOLN 45 ML (OCEAN) SCH ×2 (07:57→21:45)
[2021-04-03] MEDS: ENOXAPARIN INJ 40 MG/0.4 ML SYR SQ SCH (07:57)
--- NOTE | 2021-04-03 08:50 | XRay Report ---
XR chest 1V portable CLINICAL HISTORY: Resp failure. Follow-up alveolar opacities and pneumomediastinum COMPARISON STUDY: 04/02/2021 TECHNIQUE: 1 view of the chest FINDINGS: Single frontal view of the chest demonstrates the heart to again be enlarged. Tubes and catheters are unchanged. There is again extensive pneumomediastinum present. Patchy interstitial and alveolar opac ities are also again seen bilaterally, right greater than left. There is no evidence for pleural effu mickie. There is no evidence for vascular congestion. There is no acute osseous pathology. IMPRESSION: Compared to previous examination, patchy interstitial and alveolar opacities are again se en bilaterally and essentially unchanged. The findings are again characteristic of viral type pneumon itis and Covid pneumonia. There is again evidence for extensive pneumomediastinum. ACT 112: Negative or not required by law. Electronically signed by: Ronald Antoine M.D. 04/03/2021 8:49 AM
[2021-04-03] MEDS: dexAMETHasone 20 MG in DEXTROSE 5% 25 ML IV SCH (09:19)
[2021-04-03] MEDS: PANTOprazole 40 MG in SYRINGE 0 ML IV SCH (10:35)
[2021-04-03] MEDS ORDERED: STAT IV Infusion **Titration per Protocol STA (12:10)
[2021-04-03] MEDS ORDERED: PROPOFOL BOLUS FROM BAG IV PRN (12:10)
[2021-04-03 12:37] LABS: iSTAT Art Bld Gas pCO2 Correct 76 mmHg (35-46); iSTAT Art Bld Gas pH Corrected 7.262 (7.35-7.45); iSTAT Arterial Blood Gas HCO3 34 meg/L (19-24); iSTAT Arterial Blood Gas pCO2 75 mmHg (35-46); iSTAT Arterial Blood Gas pH 7.27 (7.35-7.45); iSTAT Arterial Blood Gas pO2 74 mmHg (80-95); iSTAT Arterial Blood Gas pO2 C 75; iSTAT Carbon Dioxide 36 mmol/L (24-31); iSTAT FiO2 90 %; iSTAT Hematocrit 40 % (42-52); iSTAT Hemoglobin 13.6 g/dl (14.0-18.0); iSTAT Potassium 4.7 mmol/L (3.3-5.0); iSTAT Site Art Line; iSTAT Sodium 143 mmol/L (135-144)
--- NOTE | 2021-04-03 15:20 | Critical Care Progress Note ---
Date of Service April 03, 2021 Assessment & Plan (1) Hypoxia: (2) Pneumonia due to 2019 novel coronavirus: Plan: (1) Acute respiratory failure with hypoxia: (2) Pneumonia due to 2019 novel coronavirus: Impression: 55-year-old male with COVID-19 viral pneumonia and ARDS. Intubated 03/31/2021 24-hour events: The patient continues to require high ventilatory support with high FiO2. Attempting to run lower PEEP levels to prevent additional barotrauma as he already has evidence of pneumomediastinum. Chest x-ray showed no evidence of pneumothorax. Oxygenation remains borderline. Recommendations: Neurologic: Continue with sedation and paralyzation today for ventilator support. Pulmonary: Continue lung protective ventilation strategy and a high PEEP and low FiO2 strategy. Continue Decadron to 20 mg x 5 days and 10 mg x 10 days. Given his significant barotrauma with new pneumomediastinum, will avoid additional prone positioning at this point time. Current vent settings assist control with a rate of 34 tidal volume 300 PEEP of 8 with an FiO2 of 0.9. Plateau pressures on the settings were 34. Most recent blood gas 7.27/75/74. P to F ratio 82 with very poor lung compliance. No additional interventions possible. The patient is not an ECMO candidate. Doubt he would respond to inhaled nitric oxide. Palliative care discussions are highly appropriate. Continue permissive hypercapnia and try and keep pH above 7.1. Cardiovascular: Continue norepinephrine as needed. Suspect this is related to sedation. Continuing to attempt to keep the patient on the dry side. Gastrointestinal: Continue trophic tube feeding. PPI in place. Renal: Continue electrolyte replacement as needed. Acid-base status as noted above in pulmonary. Infectious disease: No concerns for superimposed bacterial infection at this time. At risk for secondary infection. Continue to monitor Hematologic: No issues Endocrine: ICU for hyperglycemia management Lines and tubes: IJ, arterial lne and ETT placed 03/31/21, cancino to gravity, and OGT - continue use of these lines VTE prophylaxis: Lovenox 40 mg daily CODE STATUS: FULL CODE Disposition: Remain in ICU. Given the gravity of the patient's illness, discussions of CODE STATUS would be highly appropriate. Asked case management and palliative care to try and identify surrogate decision makers. Unclear if t racheostomy may be appropriate. As the patient is currently an inmate, the shelter will have to give us permission to contact family members. I have personally spent 45 minutes of critical care time in the direct management of this patient. This is a life/limb threatening event. This includes time spent evaluating patient, direct bedside care, chart review, placing orders, interpretation of diagnostic studies, discussion with consultants, patient, and family members, as well as other required patient management activities. This time is exclusive of all separately billable procedures, and teaching time and separate from and in addition to any other critical care service time. Thank you for allowing us to participate in the care of this patient. (3) ARDS (adult respiratory distress syndrome): (4) Transaminitis: Admission and Anticipated Discharge Date Admission Date: March 22, 2021 Subjective patient intubated and sedated Review of Systems Review of Systems: Unobtainable due to endotracheal tube Physical Exam Physical Exam: Intubated and sedated. Constitutional: + mechanically ventilated Neck: trachea midline, no thyromegaly Respiratory: no respiratory distress Auscultation: + crackles and + wheezes Cardiovascular: RRR, no murmur, no edema Gastrointestinal (Abdomen): normal bowel sounds, soft, nontender, no hepatosplenomegaly Musculoskeletal: Extremities: extremities normal to inspection Skin: no rashes, warm and dry Lymphatic: no cervical lymphadenopathy Results & Data Results & Data ([facility]) Vital Signs (Past 12 Hours) Vital Signs Temp Pulse Resp BP Pulse Ox 04/03/21 12:00 63 04/03/21 10:40 37.4 C 04/03/21 10:30 63 34 H 91 04/03/21 10:00 74 32 H 118/70 90 04/03/21 09:30 72 32 H 91 04/03/21 09:00 73 32 H 91 04/03/21 08:51 66 33 H 91 04/03/21 08:30 64 32 H 89 L 04/03/21 08:09 37.4 C 04/03/21 08:00 68 32 H 90 04/03/21 07:30 68 32 H 91 04/03/21 07:00 67 32 H 91 04/03/21 03:50 56 L 32 H 90 Critical Care Results & Data Vital Signs (Past 12 Hours) Vital Signs Temp Pulse Resp BP Pulse Ox 04/03/21 12:00 63 04/03/21 10:40 37.4 C 04/03/21 10:30 63 34 H 91 04/03/21 10:00 74 32 H 118/70 90 04/03/21 09:30 72 32 H 91 04/03/21 09:00 73 32 H 91 04/03/21 08:51 66 33 H 91 04/03/21 08:30 64 32 H 89 L 04/03/21 08:09 37.4 C 04/03/21 08:00 68 32 H 90 04/03/21 07:30 68 32 H 91 04/03/21 07:00 67 32 H 91 04/03/21 03:50 56 L 32 H 90 Lab & Micro Results (Past 24 Hours) RBC 4.41 M/uL (4.7-6.1) L 04/03/21 WBC 5.86 K/uL (4.8-10.8) 04/03/21 Hgb 13.1 g/dL (14.0-18.0) L 04/03/21 Hct 39.2 % (42-52) L 04/03/21 MCV 88.9 fL (80-100) 04/03/21 MCH 29.7 pg (25-34) 04/03/21 MCHC 33.4 g/dL (32-36) 04/03/21 RDW Standard Deviation 43.3 fL (36.4-46.3) 04/03/21 RDW Coefficient of Variation 13.2 % (11.5-14.5) 04/03/21 Plt Count 335 K/uL (130-400) 04/03/21 MPV 10.5 fL (7.4-10.4) H 04/03/21 Neutrophils (%) (Auto) 66.1 % 04/03/21 Lymphocytes (%) (Auto) 29.5 % 04/03/21 Monocytes # (Auto) 0.20 K/uL (0.11-0.59) 04/03/21 Eosinophils # (Auto) 0.02 K/uL (0-0.5) 04/03/21 Immature Granulocyte % (Auto) 0.5 % 04/03/21 Neutrophils # (Auto) 3.87 K/uL (1.4-6.5) 04/03/21 Lymphocytes # (Auto) 1.73 K/uL (1.2-3.4) 04/03/21 Monocytes # (Auto) 0.20 K/uL (0.11-0.59) 04/03/21 Eosinophils # (Auto) 0.02 K/uL (0-0.5) 04/03/21 Basophils # (Auto) 0.01 K/uL (0-0.2) 04/03/21 Immature Granulocyte # (Auto) 0.03 K/uL (0.00-0.02) H 04/03/21 Na 141 mmol/L (136-145) 04/03/21 K 3.8 mmol/L (3.5-5.1) 04/03/21 Cl 106 mmol/L (98-107) 04/03/21 CO2 32 mmol/L (21-32) 04/03/21 Anion Gap 3.0 (3-11) 04/03/21 BUN 35 mg/dl (7-18) H 04/03/21 Creatinine 0.84 mg/dl (0.6-1.4) 04/03/21 Estimated GFR ( Amer) 115.0 ml/min 04/03/21 Estimated GFR (Non-Af Amer) 99.3 ml/min 04/03/21 BUN/Creatinine Ratio 42.0 (10-20) H 04/03/21 Glu 98 mg/dl (70-99) 04/03/21 Ca 8.8 mg/dl (8.5-10.1) 04/03/21 Phosphorus Level 3.0 mg/dl (2.5-4.9) 04/03/21 Mg 2.5 mg/dl (1.8-2.4) H 04/03/21 05:50 04/03/21 Calcium Level 8.8 mg/dl (8.5-10.1) 04/03/21 05:50 04/03/21 Waldo Test NA 04/03/21 12:07 04/03/21 Diagnostic Findings (Past 24 Hours) Chest X-Ray 04/03/21 07:00 XR chest 1V portable CLINICAL HISTORY: Resp failure. Follow-up alveolar opacities and pneumomediastinum COMPARISON STUDY: 04/02/2021 TECHNIQUE: 1 view of the chest FINDINGS: Single frontal view of the chest demonstrates the heart to again be enlarged. Tubes and catheters are unchanged. There is again extensive pneumomediastinum present. Patchy interstitial and alveolar opacities are also again seen bilaterally, right greater than left. There is no evidence for pleural effusion. There is no evidence for vascular congestion. There is no acute osseous pathology. IMPRESSION: Compared to previous examination, patchy interstitial and alveolar opacities are again seen bilaterally and essentially unchanged. The findings are again characteristic of viral type pneumonitis and Covid pneumonia. There is again evidence for extensive pneumomediastinum. ACT 112: Negative or not required by law. Electronically signed by: Ronald Antoine M.D. 04/03/2021 8:49 AM I & O Totals 24 Hours 04/02/21 04/03/21 04/04/21 06:59 06:59 06:59 Intake Total 1508.121 / 9204.606 6489.109 / 1326.109 515.988 / 515.988 Output Total 1450 / 1450 1380 / 1380 550 / 550 Balance 58.121 / 58.121 -53.891 / -53.891 -34.012 / -34.012 Cumulative 03/22/21 09:18 thru 04/03/21 14:00 Intake Total 89950.051 Output Total 23000 Balance -4779.949 RT Ventilator Mngmt (Last Documented) Ventilator Ordered Settings Ventilator Support Mode Assist Control 04/03/21 12:00 Respiratory Rate 34 04/03/21 10:30 Ventilator Tidal Volume 300 04/03/21 12:00 Setting Minute Ventilation 11 04/03/21 08:51 Ventilator Positive Pressure 6 04/02/21 04:00 Support Setting Positive End Expiratory 8 04/03/21 12:00 Pressure Fraction of Inspired Oxygen 90 04/03/21 12:00 Peak Inspiratory Flow 40 03/31/21 16:04 Machine Comment FiO2 decreased to 80% 04/03/21 03:50 Ventilator - PT Measurements Respiratory Rate 34 Exhaled Tidal Volume 349 Minute Ventilation 11 Peak Inspiratory Airway 36 Pressure Plateau Pressure 34 Respiratory Cycle Inspiratory: 1:1.7 Expiratory Ratio Inspiratory Phase Time 0.7 End-Tidal CO2 32 Static Lung Compliance 13.42 Dynamic Lung Compliance 12.46 Normal Static Lung Compliance 42.00 Patient Measurements Comment pt supine Coding Level of Care Code Critical Care 1st 30-74 mins Diagnoses Hypoxia R09.02 Pneumonia due to 2019 novel coronavirus U07.1; J12.82 Time Spent (min) 45
[2021-04-03] MEDS: NOREPINEPHRINE/D5W 8 MG/508 ML BAG IV SCH (16:57)
[2021-04-03] MEDS: PEPTAMEN INTENSE VHP 1.0 CAL 1,000 ML BAG GT SCH (16:58)
--- NOTE | 2021-04-03 18:01 | Hospitalist Progress Note ---
Date of Service April 03, 2021 Assessment & Plan (1) Pneumonia due to 2019 novel coronavirus: (2) Acute respiratory failure with hypoxia: Plan: Acute hypoxic respiratory failure COVID-19 Community-acquired pneumonia Not vaccinated against Covid, signs and symptoms since 16 days. Extensive pneumomediastinum --CTA:Cardiomegaly without pulmonary emboli. Extensive bilateral pulmonary opacities compatible with viral pneumonia. Mild reactive mediastinal adenopathy. -Procalcitonin 0.87> 0.37 -Completed empiric Rocephin course Lasix as needed On Lovenox for DVT prophylaxis Appreciate pulmonology/Critical Care input Intubated on 03/31/21 On Nimbex Continue dexamethasone Vent management as per ICU team weaned off of Pressor On tube feeds On Lovenox for DVT prophylaxis 8 of PEEP, 90% FiO2 Patient not a candidate for ECMO as per critical care Palliative care consulted to address goals of care JOHNNA unknown baseline, unknown if h/o CKD Creatinine levels normalized Monitor renal function Hyperkalemia Resolved Monitor BMP Hepatic Steatosis Transaminitis Transaminitis likely secondary to Covid, LFTs trended down DVT Px: Lovenox SQ CODE STATUS: Full Code Admission and Anticipated Discharge Date Admission Date: March 22, 2021 Subjective Patient is seen and examined at bedside Remains Intubated On Nimbex Currently on 8 of PEEP, 90% FiO2 On fentanyl, propofol for sedation Also on tube feeds Review of Systems Review of Systems: All systems reviewed & are unremarkable except as noted in Subjective Physical Exam Physical Exam: Physical Exam: Vitals signs as noted above General Appearance:Moderately built and nourished, Intubated Head: normocephalic, Atraumatic Eyes: normal inspection, EOMI Neck: supple, Trachea midline Respiratory/Chest: Decreased breath sounds, CTA Cardiovascular: S1, S2, No murmur Abdomen/GI:Soft, Non tender, Bowel sounds present Extremities/Musculoskeletal:normal inspection, no edema Neurologic/Psych:Sedated and Intubated Skin: normal color, warm Results & Data Results & Data ([facility]) Vital Signs (Past 12 Hours) Vital Signs Temp Pulse Resp BP Pulse Ox 04/03/21 16:30 37.3 C 84 34 H 93 04/03/21 16:00 79 6 L 94 04/03/21 15:30 85 17 92 04/03/21 15:10 89 34 H 91 04/03/21 15:00 89 34 H 117/76 91 04/03/21 14:30 90 34 H 91 04/03/21 14:00 89 34 H 90 04/03/21 13:30 105 H 34 H 91 04/03/21 13:00 102 H 37 H 91 04/03/21 12:30 96 H 37 H 91 04/03/21 12:00 94 H 35 H 91 04/03/21 11:30 70 31 H 91 04/03/21 11:00 69 34 H 92 04/03/21 10:40 37.4 C 04/03/21 10:30 63 34 H 91 04/03/21 10:00 74 32 H 118/70 90 04/03/21 09:30 72 32 H 91 04/03/21 09:00 73 32 H 91 04/03/21 08:51 66 33 H 91 04/03/21 08:30 64 32 H 89 L 04/03/21 08:09 37.4 C 04/03/21 08:00 68 32 H 90 04/03/21 07:30 68 32 H 91 04/03/21 07:00 67 32 H 91 Laboratory Results Short CBC 04/03/21 Range/Units 05:50 WBC 5.86 (4.8-10.8) K/uL Hgb 13.1 L (14.0-18.0) g/dL Hct 39.2 L (42-52) % Plt Count 335 (130-400) K/uL BMP 04/03/21 05:50 Sodium 141 Potassium 3.8 Chloride 106 Carbon Dioxide 32 BUN 35 H Creatinine 0.84 Glucose 98 Calcium 8.8
[2021-04-04] MEDS: fentaNYL DRIP 1,250 MCG/250 ML BAG IV SCH ×4 (00:38→14:27)
[2021-04-04] MEDS: CISATRACURIUM BESYLATE 40 MG in 0.9 % SODIUM CHLORIDE 80 ML IV SCH ×2 (02:52→08:11)
[2021-04-04] MEDS: ARTIFICIAL TEARS OP OINT 3.5 GM TUBE OP SCH ×6 (02:53→20:37)
[2021-04-04 04:02] LABS: iSTAT Art Bld Gas pCO2 Correct 73 mmHg (35-46); iSTAT Art Bld Gas pH Corrected 7.293 (7.35-7.45); iSTAT Arterial Blood Gas HCO3 35 meg/L (19-24); iSTAT Arterial Blood Gas pCO2 71 mmHg (35-46); iSTAT Arterial Blood Gas pO2 64 mmHg (80-95); iSTAT Arterial Blood Gas pO2 C 66; iSTAT Carbon Dioxide 37 mmol/L (24-31); iSTAT FiO2 70 %; iSTAT Hematocrit 36 % (42-52); iSTAT Hemoglobin 12.2 g/dl (14.0-18.0); iSTAT Potassium 4.1 mmol/L (3.3-5.0); iSTAT Site Art Line; iSTAT Sodium 143 mmol/L (135-144)
[2021-04-04] MEDS: propofoL 1,000 MG/100 ML VIAL IV SCH ×4 (04:40→20:34)
[2021-04-04 06:44] LABS: Hemoglobin 13.4 g/dL (14.0-18.0); Mean Corpuscular Hemoglobin 29.9 pg (25-34); Mean Corpuscular Hgb Conc 32.7 g/dL (32-36); Mean Corpuscular Volume 91.5 fL (80-100); Mean Platelet Volume 10.3 fL (7.4-10.4); Platelet Count 315 K/uL (130-400); RDW Coefficient of Variation 13.5 % (11.5-14.5); RDW Standard Deviation 45.3 fL (36.4-46.3); Red Blood Count 4.48 M/uL (4.7-6.1); White Blood Count 6.44 K/uL (4.8-10.8)
[2021-04-04 07:31] LABS: BUN Creatinine Ratio 30.1 (10-20); Calcium 8.7 mg/dl (8.5-10.1); Creatinine Clr Calc Pharmacy 91.8 ml/min; Est GFR (African American) 113.9 ml/min; Est GFR (Non-African American) 98.3 ml/min; Potassium 3.9 mmol/L (3.5-5.1)
[2021-04-04 07:35] LABS: Magnesium 2.2 mg/dl (1.8-2.4); Phosphorus 3.1 mg/dl (2.5-4.9)
--- NOTE | 2021-04-04 07:55 | XRay Report ---
XR chest 1V portable CLINICAL HISTORY: Resp failure. Follow-up bilateral airspace opacities COMPARISON STUDY: 04/03/2021 TECHNIQUE: 1 view of the chest FINDINGS: Single frontal view of the chest demonstrates the cardiomediastinal silhouette to be within normal li mits. Tubes and catheters are unchanged. There is again evidence for pneumomediastinum which is uncha nged. Bilateral interstitial and alveolar opacities are less prominent. However, there is increased l eft lower lobe atelectasis/collapse. There is no evidence for pleural effusion. There is no evidence for vascular congestion. There is no acute osseous pathology. IMPRESSION: Compared to previous examination, there is decreased prominence of interstitial alveolar opacities bilaterally. However, there is increased left lower lobe atelectasis/collapse. There is aga in evidence for pneumomediastinum. ACT 112: Negative or not required by law. Electronically signed by: Ronald Antoine M.D. 04/04/2021 7:54 AM
[2021-04-04] MEDS: SODIUM CHLORIDE 0.65% NA SOLN 45 ML (OCEAN) SCH (08:14)
[2021-04-04] MEDS: dexAMETHasone 20 MG in DEXTROSE 5% 25 ML IV SCH (08:26)
[2021-04-04] MEDS: ENOXAPARIN INJ 40 MG/0.4 ML SYR SQ SCH (08:31)
[2021-04-04 10:56] LABS: Basophils # (auto) 0.01 K/uL (0-0.2); Basophils % (auto) 0.2 %; Eosinophils # (auto) 0.06 K/uL (0-0.5); Eosinophils % (auto) 0.9 %; Immature Granulocytes # (auto) 0.03 K/uL (0.00-0.02); Immature Granulocytes % (auto) 0.5 %; Lymphocytes % (auto) 31.1 %; Monocytes # (auto) 0.09 K/uL (0.11-0.59); Monocytes % (auto) 1.4 %; Neutrophils # (auto) 4.25 K/uL (1.4-6.5); Neutrophils % (auto) 65.9 %
[2021-04-04] MEDS: PANTOprazole 40 MG in SYRINGE 0 ML IV SCH (11:09)
[2021-04-04] MEDS ORDERED: STAT IV Infusion **Titration per Protocol STA (11:57)
--- NOTE | 2021-04-04 11:58 | Critical Care Progress Note ---
Date of Service April 04, 2021 Assessment & Plan (1) Hypoxia: (2) Pneumonia due to 2019 novel coronavirus: Plan: (1) Acute respiratory failure with hypoxia: (2) Pneumonia due to 2019 novel coronavirus: Impression: 55-year-old male with COVID-19 viral pneumonia and ARDS. Intubated 03/31/2021 24-hour events: The patient continues to require high ventilatory support with high FiO2. Remains HD stable. No acute changes overnight. Recommendations: Neurologic: Discontinue neuromuscular blockade. We will add oral oxycodone and clonazepam to his regimen to try and decrease his sedative IV requirements. Start Precedex Pulmonary: Continue lung protective ventilation strategy and a high PEEP and low FiO2 strategy. Continue Decadron to 20 mg x 5 days and 10 mg x 10 days. Given his significant barotrauma with pneumomediastinum, will avoid additional prone positioning at this point time. Current vent settings AC 34/300/8/0.75 Plateau pressures on the settings were 26. Most recent blood gas 7..30/74/64. P/F ratio 85 (stable) with very poor lung compliance. No additional interventions possible. The patient is not an ECMO candidate. Palliative care discussions are highly appropriate. Continue permissive hypercapnia and try and keep pH above 7.1. Very slight improvement in his oxygenation today. MV D#5. May be reasonable to consider early trach if fails to improve. Cardiovascular: Continuing to attempt to keep the patient on the dry side. Gastrointestinal: Continue trophic tube feeding. PPI in place. Renal: Continue electrolyte replacement as needed. Acid-base status as noted above in pulmonary. Infectious disease: No concerns for superimposed bacterial infection at this time. At risk for secondary infection. Continue to monitor Hematologic: No issues Endocrine: ICU for hyperglycemia management Lines and tubes: IJ, arterial lne and ETT placed 03/31/21, cancino to gravity, and OGT - continue use of these lines VTE prophylaxis: Lovenox 40 mg daily CODE STATUS: FULL CODE Disposition: Remain in ICU. Given the gravity of the patient's illness, discussions of CODE STATUS would be highly appropriate. Asked case management and palliative care to try and identify surrogate decision makers. Unclear if tracheostomy may be appropriate. As the patient is currently an inmate, the group home will have to give us permission to contact family members. I have personally spent 45 minutes of critical care time in the direct management of this patient. This is a life/limb threatening event. This includes time spent evaluating patient, direct bedside care, chart review, placing orders, interpretation of diagnostic studies, discussion with consultants, patient, and family members, as well as other required patient management activities. This time is exclusive of all separately billable procedures, and teaching time and separate from and in addition to any other critical care service time. (3) ARDS (adult respiratory distress syndrome): (4) Transaminitis: Admission and Anticipated Discharge Date Admission Date: March 22, 2021 Subjective intubated and sedated. Review of Systems Review of Systems: Unobtainable due to endotracheal tube Physical Exam Physical Exam: Intubated and sedated. Constitutional: WD/WN, vitals as above + mechanically ventilated Neck: trachea midline, no thyromegaly Respiratory: no respiratory distress Auscultation: + crackles and + wheezes Cardiovascular: RRR, no murmur, no edema Gastrointestinal (Abdomen): normal bowel sounds, soft, nontender, no hepatosplenomegaly Musculoskeletal: Extremities: extremities normal to inspection Skin: no rashes, warm and dry Lymphatic: no cervical lymphadenopathy Results & Data Results & Data ([facility]) Vital Signs (Past 12 Hours) Vital Signs Temp Pulse Resp BP Pulse Ox 04/04/21 10:59 34 H 90 04/04/21 08:00 90 150/60 H 04/04/21 07:56 38.0 C H 04/04/21 07:00 116 H 34 H 93 04/04/21 06:59 33 H 04/04/21 06:30 104 H 34 H 89 L 04/04/21 06:00 95 H 34 H 89 L 04/04/21 05:00 80 34 H 92 04/04/21 04:00 73 34 H 90 04/04/21 03:00 71 34 H 89 L 04/04/21 02:47 71 34 H 89 L 04/04/21 02:00 78 34 H 90 04/04/21 01:00 80 35 H 88 L 04/04/21 00:32 82 34 H 91 04/04/21 00:00 80 34 H 89 L Critical Care Results & Data Vital Signs (Past 12 Hours) Vital Signs Temp Pulse Resp BP Pulse Ox 04/04/21 10:59 34 H 90 04/04/21 08:00 90 150/60 H 04/04/21 07:56 38.0 C H 04/04/21 07:00 116 H 34 H 93 04/04/21 06:59 33 H 04/04/21 06:30 104 H 34 H 89 L 04/04/21 06:00 95 H 34 H 89 L 04/04/21 05:00 80 34 H 92 04/04/21 04:00 73 34 H 90 04/04/21 03:00 71 34 H 89 L 04/04/21 02:47 71 34 H 89 L 04/04/21 02:00 78 34 H 90 04/04/21 01:00 80 35 H 88 L 04/04/21 00:32 82 34 H 91 04/04/21 00:00 80 34 H 89 L Lab & Micro Results (Past 24 Hours) RBC 4.48 M/uL (4.7-6.1) L 04/04/21 WBC 6.44 K/uL (4.8-10.8) 04/04/21 Hgb 13.4 g/dL (14.0-18.0) L 04/04/21 Hct 41.0 % (42-52) L 04/04/21 MCV 91.5 fL (80-100) 04/04/21 MCH 29.9 pg (25-34) 04/04/21 MCHC 32.7 g/dL (32-36) 04/04/21 RDW Standard Deviation 45.3 fL (36.4-46.3) 04/04/21 RDW Coefficient of Variation 13.5 % (11.5-14.5) 04/04/21 Plt Count 315 K/uL (130-400) 04/04/21 MPV 10.3 fL (7.4-10.4) 04/04/21 Neutrophils (%) (Auto) 65.9 % 04/04/21 Lymphocytes (%) (Auto) 31.1 % 04/04/21 Monocytes # (Auto) 0.09 K/uL (0.11-0.59) L 04/04/21 Eosinophils # (Auto) 0.06 K/uL (0-0.5) 04/04/21 Immature Granulocyte % (Auto) 0.5 % 04/04/21 Neutrophils # (Auto) 4.25 K/uL (1.4-6.5) 04/04/21 Lymphocytes # (Auto) 2.00 K/uL (1.2-3.4) 04/04/21 Monocytes # (Auto) 0.09 K/uL (0.11-0.59) L 04/04/21 Eosinophils # (Auto) 0.06 K/uL (0-0.5) 04/04/21 Basophils # (Auto) 0.01 K/uL (0-0.2) 04/04/21 Immature Granulocyte # (Auto) 0.03 K/uL (0.00-0.02) H 04/04/21 Na 142 mmol/L (136-145) 04/04/21 K 3.9 mmol/L (3.5-5.1) 04/04/21 Cl 106 mmol/L (98-107) 04/04/21 CO2 32 mmol/L (21-32) 04/04/21 Anion Gap 4.0 (3-11) 04/04/21 BUN 26 mg/dl (7-18) H 04/04/21 Creatinine 0.86 mg/dl (0.6-1.4) 04/04/21 Estimated GFR ( Amer) 113.9 ml/min 04/04/21 Estimated GFR (Non-Af Amer) 98.3 ml/min 04/04/21 BUN/Creatinine Ratio 30.1 (10-20) H 04/04/21 Glu 90 mg/dl (70-99) 04/04/21 Ca 8.7 mg/dl (8.5-10.1) 04/04/21 Phosphorus Level 3.1 mg/dl (2.5-4.9) 04/04/21 Mg 2.2 mg/dl (1.8-2.4) 04/04/21 06:18 04/04/21 Calcium Level 8.7 mg/dl (8.5-10.1) 04/04/21 06:18 04/04/21 Waldo Test NA 04/04/21 03:47 04/04/21 Diagnostic Findings (Past 24 Hours) Chest X-Ray 04/04/21 07:00 XR chest 1V portable CLINICAL HISTORY: Resp failure. Follow-up bilateral airspace opacities COMPARISON STUDY: 04/03/2021 TECHNIQUE: 1 view of the chest FINDINGS: Single frontal view of the chest demonstrates the cardiomediastinal silhouette to be within normal limits. Tubes and catheters are unchanged. There is again evidence for pneumomediastinum which is unchanged. Bilateral interstitial and alveolar opacities are less prominent. However, there is increased left lower lobe atelectasis/collapse. There is no evidence for pleural effusion. There is no evidence for vascular congestion. There is no acute osseous pathology. IMPRESSION: Compared to previous examination, there is decreased prominence of interstitial alveolar opacities bilaterally. However, there is increased left lower lobe atelectasis/collapse. There is again evidence for pneumomediastinum. ACT 112: Negative or not required by law. Electronically signed by: Ronald Antoine M.D. 04/04/2021 7:54 AM I & O Totals 24 Hours 04/03/21 04/04/21 04/05/21 06:59 06:59 06:59 Intake Total 1326.109 / 3043.428 8456.338 / 2349.338 444.00 / 444.00 Output Total 1380 / 1380 1974 350 / 350 Balance -53.891 / -53.891 374.338 / 374.338 94.00 / 94.00 Cumulative 03/22/21 09:18 thru 04/04/21 10:00 Intake Total 07040.401 Output Total 11455 Balance -4277.599 RT Ventilator Mngmt (Last Documented) Ventilator Ordered Settings Ventilator Support Mode Assist Control 04/04/21 10:59 Respiratory Rate 34 04/04/21 10:59 Ventilator Tidal Volume 300 04/04/21 10:59 Setting Minute Ventilation 10.2 04/04/21 10:59 Ventilator Positive Pressure 6 04/02/21 04:00 Support Setting Positive End Expiratory 8 04/04/21 10:59 Pressure Fraction of Inspired Oxygen 75 04/04/21 10:59 Peak Inspiratory Flow 34 04/03/21 15:10 Machine Comment FiO2 decreased to 80% 04/03/21 03:50 Ventilator - PT Measurements Respiratory Rate 34 Exhaled Tidal Volume 300 Minute Ventilation 10.2 Peak Inspiratory Airway 31 Pressure Plateau Pressure 26 Respiratory Cycle Inspiratory: 1:1.5 Expiratory Ratio Inspiratory Phase Time 0.7 End-Tidal CO2 32 Static Lung Compliance 16.67 Dynamic Lung Compliance 13.04 Normal Static Lung Compliance 43.00 Patient Measurements Comment found patient on these settings- Coding Level of Care Code Critical Care 1st 30-74 mins Diagnoses Hypoxia R09.02 Pneumonia due to 2019 novel coronavirus U07.1; J12.82
[2021-04-04] MEDS: fentaNYL citrate 2,500 MCG/250 ML BAG IV SCH (12:04)
[2021-04-04] MEDS: clonazePAM 1 MG TAB PO SCH ×2 (13:06→20:34)
[2021-04-04] MEDS: oxyCODONE HCL SOLN 5 MG/5 ML UDC PO SCH ×2 (13:06→18:34)
[2021-04-04] MEDS: DEXMEDETOMIDINE HCL 200 MCG in SODIUM CHLORIDE 0.9% 48 ML IV SCH ×2 (13:38→17:24)
--- NOTE | 2021-04-04 15:03 | Palliative Care Consultation ---
Date of Consultation April 04, 2021 Assessment & Plan (1) Palliative care encounter: Semaj Valenzuela is a 55 year old Male who presented to the [facility] from [facility] with symptoms confirmed to be COVID-19 PNA and ARDS. He continued to be hypoxic and was intubated on March 31. He has continued to require high vent support with increased FiO2. Palliative Medicine was consulted to establish goals of therapy. Semaj is intubated and sedated and unable to participate in goals of care conversation. As he is an inmate of [facility], they were contacted to determine next of kin and the longterm's preference on family contact. Per Estefany at [facility], Faviola Álvarez to hold family goals of care conversation, but overall daily contact and updates will be provided by the longterm themselves due to family dynamic. Patient has a sister and daughter, Cassi. Dr. Guaman was able to call the patients daughter to establish a time for a family meeting and determine next steps in his plan of care as it is likely if we are to continue with aggressive management in his care that he will likely require a tracheostomy. Important for code status to be addressed during our family meeting. Patients daughter asked if patient could receive Ivermectin and also asked if the "sedation could be turned off and the ett could be removed so they could ask him what he would like to do'. Discussed why this is not possible. Update provided and plan for family meeting tomorrow, Thursday 04/05 at 1300. Palliative will follow. (2) Hypoxia: (3) Pneumonia due to 2019 novel coronavirus: History of Present Illness Reason for Consultation: goals of care Requesting Physician: Dr. Arita Attending Physician: Willie Diop MD History of Present Illness Semaj Valenzuela is a 55 year old Male who presented to the [facility] from [facility] with symptoms confirmed to be COVID-19 PNA and ARDS. He continued to be hypoxic and was intubated on March 31. He has continued to require high vent support with increased FiO2. Palliative Medicine was consulted to establish goals of therapy. Please see A/P for further details. Thanks for involving Mr. Valenzuela with Palliative Care. Allergies Allergy/AdvReac Type Severity Reaction Status Date / Time No Known Allergies Allergy Unverified 03/22/21 10:23 Home Medications Medication Instructions Recorded Confirmed Type amoxicillin 500 mg capsule 500 mg PO TID 03/22/21 03/22/21 History Patient History Medical History (Updated 04/04/21 @ 22:21 by BARBRA Martinez) ARDS (adult respiratory distress syndrome) Palliative care encounter Patient denies medical problems Psoriasis Transaminitis Family History Other Family history non-contributory Social History Smoking Status: Never smoker Second Hand Exposure: No; Do You Dip or Chew Tobacco: No; Hx Alcohol Use: No Hx Substance Use: No Preferred Language: Botswanan Communication Ability: Impaired Communication Ability Comment: Branch Office Administrator service is needed with the language line paraprofessional interpreter Communication Tools: Other Visual Impairment: No Limitations Hearing Ability: Normal Commercial Real Estate Assistant Required: Yes and No Beliefs That Will Affect Care: None marital status: Legally Current Living Situation: Other Current Living Situation Comment: Jail How many Children do You have: 1 Feels Safe at Home: Yes Assistive Devices: Oxygen - Continuous Review of Systems Review of Systems: Unobtainable due to endotracheal tube Results & Data ([facility]) Vital Signs (Past 12 Hours) Vital Signs Temp Pulse Resp BP Pulse Ox 04/04/21 14:24 34 H 90 04/04/21 13:00 77 34 H 92 04/04/21 12:30 71 34 H 91 04/04/21 12:00 73 34 H 127/62 89 L 04/04/21 11:59 37.5 C 04/04/21 11:30 78 34 H 88 L 04/04/21 11:00 83 21 90 04/04/21 10:59 34 H 90 04/04/21 10:30 79 34 H 89 L 04/04/21 10:00 92 H 34 H 91 04/04/21 09:30 90 34 H 91 04/04/21 09:00 90 34 H 91 04/04/21 08:30 89 34 H 91 04/04/21 08:00 91 H 34 H 150/60 H 90 04/04/21 07:56 38.0 C H 04/04/21 07:30 96 H 34 H 84 L 04/04/21 07:00 116 H 34 H 93 12/07/21 06:59 33 H 04/04/21 06:30 104 H 34 H 89 L 04/04/21 06:00 95 H 34 H 89 L 04/04/21 05:00 80 34 H 92 04/04/21 04:00 73 34 H 90 PG Care Time/CCT Total # of Minutes Spent Total Time Spent with Patient: Total time spent is greater than 50% in coordination of care (as documented) at patient's floor/unit and/or counseling patient: 70 minutes Coding Level of Care Code 25021 Initial Inpt Care Lvl 3 Diagnoses Palliative care encounter Z51.5 Hypoxia R09.02 Pneumonia due to 2019 novel coronavirus U07.1; J12.82 Time Spent (min) 70
[2021-04-04] MEDS: PEPTAMEN INTENSE VHP 1.0 CAL 1,000 ML BAG GT SCH (17:12)
--- NOTE | 2021-04-04 17:20 | Hospitalist Progress Note ---
Date of Service April 04, 2021 Assessment & Plan (1) Pneumonia due to 2019 novel coronavirus: (2) Acute respiratory failure with hypoxia: Plan: Acute hypoxic respiratory failure COVID-19 Community-acquired pneumonia Not vaccinated against Covid, signs and symptoms since 16 days. Extensive pneumomediastinum --CTA:Cardiomegaly without pulmonary emboli. Extensive bilateral pulmonary opacities compatible with viral pneumonia. Mild reactive mediastinal adenopathy. -Procalcitonin 0.87> 0.37 -Completed empiric Rocephin course Lasix as needed On Lovenox for DVT prophylaxis Appreciate pulmonology/Critical Care input Intubated on 03/31/21 On Nimbex Continue dexamethasone Vent management as per ICU team weaned off of Pressor On tube feeds On Lovenox for DVT prophylaxis 8 of PEEP, 75% FiO2 Patient not a candidate for ECMO as per critical care Palliative care on board Chest x-ray today showed slight improvement of opacities JOHNNA unknown baseline, unknown if h/o CKD Creatinine levels normalized Monitor renal function Hyperkalemia Resolved Monitor BMP Hepatic Steatosis Transaminitis Transaminitis likely secondary to Covid, LFTs trended down DVT Px: Lovenox SQ CODE STATUS: Full Code Admission and Anticipated Discharge Date Admission Date: March 22, 2021 Subjective Patient is seen and examined at bedside Slight decrease in oxygen requirement today Chest x-ray showed decreased prominence of interstitial lower lobe opacities bilaterally, + pneumomediastinum Remains Intubated On Nimbex Currently on 8 of PEEP, 75% FiO2 On fentanyl, propofol for sedation Also on tube feeds Review of Systems Review of Systems: All systems reviewed & are unremarkable except as noted in Subjective Physical Exam Physical Exam: Physical Exam: Vitals signs as noted above General Appearance:Moderately built and nourished, Intubated Head: normocephalic, Atraumatic Eyes: normal inspection, EOMI Neck: supple, Trachea midline Respiratory/Chest: Decreased breath sounds, CTA Cardiovascular: S1, S2, No murmur Abdomen/GI:Soft, Non tender, Bowel sounds present Extremities/Musculoskeletal:normal inspection, no edema Neurologic/Psych:Sedated and Intubated Skin: normal color, warm Results & Data Results & Data ([facility]) Vital Signs (Past 12 Hours) Vital Signs Temp Pulse Resp BP Pulse Ox 04/04/21 16:00 58 L 04/04/21 15:56 58 L 95/53 L 04/04/21 15:46 37.2 C 04/04/21 15:30 58 L 34 H 91 04/04/21 15:00 59 L 34 H 90 04/04/21 14:30 64 32 H 84 L 04/04/21 14:24 34 H 90 04/04/21 14:00 69 34 H 91 04/04/21 13:30 73 34 H 92 04/04/21 13:00 77 34 H 92 04/04/21 12:30 71 34 H 91 04/04/21 12:00 73 34 H 127/62 89 L 04/04/21 11:59 37.5 C 04/04/21 11:30 78 34 H 88 L 04/04/21 11:00 83 21 90 04/04/21 10:59 34 H 90 04/04/21 10:30 79 34 H 89 L 04/04/21 10:00 92 H 34 H 91 04/04/21 09:30 90 34 H 91 04/04/21 09:00 90 34 H 91 04/04/21 08:30 89 34 H 91 04/04/21 08:00 91 H 34 H 150/60 H 90 04/04/21 07:56 38.0 C H 04/04/21 07:30 96 H 34 H 84 L 04/04/21 07:00 116 H 34 H 93 04/04/21 06:59 33 H 04/04/21 06:30 104 H 34 H 89 L 04/04/21 06:00 95 H 34 H 89 L Laboratory Results Short CBC 04/04/21 Range/Units 06:18 WBC 6.44 (4.8-10.8) K/uL Hgb 13.4 L (14.0-18.0) g/dL Hct 41.0 L (42-52) % Plt Count 315 (130-400) K/uL BMP 04/04/21 06:18 Sodium 142 Potassium 3.9 Chloride 106 Carbon Dioxide 32 BUN 26 H Creatinine 0.86 Glucose 90 Calcium 8.7
[2021-04-05] MEDS ORDERED: GLYCOPYRROLATE 0.2 MG/ML VIAL IV ONE (00:28)
[2021-04-05] MEDS: oxyCODONE HCL SOLN 5 MG/5 ML UDC PO SCH ×4 (03:10→21:02)
[2021-04-05] MEDS: ARTIFICIAL TEARS OP OINT 3.5 GM TUBE OP SCH ×8 (03:11→21:08)
[2021-04-05] MEDS: CISATRACURIUM BESYLATE 40 MG in 0.9 % SODIUM CHLORIDE 80 ML IV SCH ×3 (03:17→11:56)
[2021-04-05 03:21] LABS: iSTAT Art Bld Gas pCO2 Correct 70 mmHg (35-46); iSTAT Art Bld Gas pH Corrected 7.341 (7.35-7.45); iSTAT Arterial Blood Gas HCO3 37 meg/L (19-24); iSTAT Arterial Blood Gas pCO2 68 mmHg (35-46); iSTAT Arterial Blood Gas pH 7.35 (7.35-7.45); iSTAT Arterial Blood Gas pO2 64 mmHg (80-95); iSTAT Arterial Blood Gas pO2 C 68; iSTAT Carbon Dioxide 39 mmol/L (24-31); iSTAT FiO2 100 %; iSTAT Hematocrit 37 % (42-52); iSTAT Hemoglobin 12.6 g/dl (14.0-18.0); iSTAT Potassium 3.7 mmol/L (3.3-5.0); iSTAT Site Art Line; iSTAT Sodium 143 mmol/L (135-144)
[2021-04-05] MEDS: propofoL 1,000 MG/100 ML VIAL IV SCH ×5 (04:15→21:03)
[2021-04-05] MEDS ORDERED: STAT IV Infusion **Titration per Protocol STA ×2 (04:16→06:14)
[2021-04-05] MEDS: MIDAZOLAM HCL 125 MG/250 ML BAG IV SCH (05:07)
[2021-04-05 06:06] LABS: Hematocrit (blood only) 39.9 % (42-52); Hemoglobin 13.3 g/dL (14.0-18.0); Mean Corpuscular Hgb Conc 33.3 g/dL (32-36); Mean Corpuscular Volume 90.1 fL (80-100); Mean Platelet Volume 10.3 fL (7.4-10.4); Platelet Count 253 K/uL (130-400); RDW Coefficient of Variation 13.1 % (11.5-14.5); Red Blood Count 4.43 M/uL (4.7-6.1); White Blood Count 15.05 K/uL (4.8-10.8)
[2021-04-05 06:42] LABS: BUN Creatinine Ratio 31.8 (10-20); Calcium 8.2 mg/dl (8.5-10.1); Creatinine Clr Calc Pharmacy 103.9 ml/min; Est GFR (African American) 119.9 ml/min; Est GFR (Non-African American) 103.4 ml/min; Potassium 3.9 mmol/L (3.5-5.1)
[2021-04-05] MEDS: ACETAMINOPHEN 325 MG TAB PO PRN (06:56)
--- NOTE | 2021-04-05 07:53 | XRay Report ---
XR chest 1V portable CLINICAL HISTORY: Resp failure. Follow-up airspace opacities COMPARISON STUDY: 04/04/2021 TECHNIQUE: 1 view of the chest FINDINGS: Single frontal view of the chest demonstrates the heart to again be enlarged. There is again evidence for pneumomediastinum. Tubes and catheters are unchanged. Mild interstitial and alveolar opacities a re again seen bilaterally, left greater than right. There is again evidence for increased left lower lobe atelectasis/collapse and probable small left pleural effusion. There is also haziness now seen a t the right lung base and small right pleural effusion cannot be excluded. There is no evidence for v ascular congestion. There is no acute osseous pathology. IMPRESSION: 1. No significant interval change of bilateral interstitial and alveolar opacities. 2. Increased left lower lobe atelectasis/collapse and left pleural effusion. 3. Interval development of small right pleural effusion. 4. Pneumomediastinum is again seen. ACT 112: Negative or not required by law. Electronically signed by: Ronald Antoine M.D. 04/05/2021 7:52 AM
[2021-04-05] MEDS: dexAMETHasone 10 MG in SYRINGE 0 ML IV SCH (10:06)
[2021-04-05] MEDS: ENOXAPARIN INJ 40 MG/0.4 ML SYR SQ SCH (10:07)
[2021-04-05] MEDS: fentaNYL citrate 2,500 MCG/250 ML BAG IV SCH ×3 (10:10→21:03)
[2021-04-05] MEDS: clonazePAM 1 MG TAB PO SCH ×2 (10:10→21:08)
[2021-04-05] MEDS: PANTOprazole 40 MG in SYRINGE 0 ML IV SCH (11:56)
--- NOTE | 2021-04-05 13:16 | Palliative Care Progress Note ---
Date of Service April 05, 2021 Assessment & Plan (1) Palliative care encounter: Plan: Pt remains intubated and sedated. He continues to require maximum ventilator support. Lengthy conversation held with three family members: Cassi, his daughter; Parmjit, his sister, and the patients Aunt on the phone with Dr. Solitario. We discussed his current trajectory and condition. We discussed a tracheostomy, its purpose and the goal of aggressive weaning and eventual po ssible removal of sedation. We reviewed his code status and expressed that if he were to suffer a cardiac arrest or life threatening rhythm, that at that point, a meaningful recovery is low. For now, they would like to proceed with full press CPR, cardioversion, pressors, hemodialysis if necessary. They have decided to proceed with a tracheostomy if indicated if he is not having successful weaning or increased O2 needs. Discussed that after proceeding with a trach its important to reevaluate the progress during a dedicated timeframe to determine if he is making improvement, staying about the same, or declining which can be helpful for further conversations regarding his overall trajectory and goals of care. Family aware that proceeding with a trach will likely result in months of aggressive rehabilitation and high likelihood of multi system organ failure. Dr. Arita aware. (2) Hypoxia: (3) Pneumonia due to 2019 novel coronavirus: Admission and Anticipated Discharge Date Admission Date: March 22, 2021 Subjective Pt remains intubated and sedated He is receiving sedation and pressors. family meeting held with three family members regarding goals of care See A/P for further details Review of Systems Review of Systems: Unobtainable due to endotracheal tube Physical Exam Constitutional: + frail appearing ENMT: Mouth: + dry oral mucous membranes Cardiovascular: Rate/Rhythm: regular rate and regular rhythm Heart Sounds: normal S1 and normal S2 Neurologic: + obtunded Results & Data ([facility]) Vital Signs (Past 12 Hours) Vital Signs Pulse Resp BP Pulse Ox 04/05/21 11:42 87 34 H 90 04/05/21 08:14 104 H 35 H 92 04/05/21 07:00 114 H 33 H 100/60 89 L 04/05/21 06:00 114 H 34 H 116/65 88 L 04/05/21 05:00 112 H 34 H 134/73 89 L 04/05/21 04:00 107 H 34 H 156/81 H 90 04/05/21 03:00 91 H 32 H 119/66 88 L 04/05/21 02:16 71 35 H 91 04/05/21 02:00 81 37 H 127/74 84 L PG Care Time/CCT Total # of Minutes Spent Total Time Spent with Patient: Total time spent is greater than 50% in coordination of care (as documented) at patient's floor/unit and/or counseling patient: 45 minutes Coding Level of Care Code 30888 Subseq Hosp Care Lvl 3 Diagnoses Palliative care encounter Z51.5 Hypoxia R09.02 Pneumonia due to 2019 novel coronavirus U07.1; J12.82 Time Spent (min) 45
--- NOTE | 2021-04-05 15:23 | Critical Care Progress Note ---
Date of Service April 05, 2021 Assessment & Plan (1) Hypoxia: (2) Pneumonia due to 2019 novel coronavirus: Plan: (1) Acute respiratory failure with hypoxia: (2) Pneumonia due to 2019 novel coronavirus: (3) ARDS (adult respiratory distress syndrome): (4) Transaminitis: Impression: 55-year-old male with COVID-19 viral pneumonia and ARDS. Intubated 03/31/2021. Admitted 03/22/2021 24-hour events: The patient continues to require high ventilatory support with high FiO2. Remains HD stable. No acute changes overnight. Recommendations: Neurologic: I discontinued neuromuscular blockade while I was at bedside. Continue oral oxycodone and clonazepam with his regimen to try and decrease his sedative IV requirements. Pulmonary: Continue lung protective ventilation strategy and a high PEEP and low FiO2 strategy. Continue Decadron to 20 mg x 5 days and 10 mg x 10 days. Given his significant barotrauma with pneumomediastinum, will avoid additional prone positioning at this point time. Current vent settings AC 34/300/8/0.8 Plateau pressures on the settings were 26. Most recent blood gas 7.34/68/64. P/F ratio 85 (No change from yesterday) with very poor lung compliance. The patient is not an ECMO candidate. Palliative care discussions are highly appropriate. Day 15 of admission. Day #6 of being intubated. Continue permissive hypercapnia and try and keep pH above 7.1. Very slight improvement in his oxygenation today (FiO2 now 80%). May be reasonable to consider early trach if fails to improve. Cardiovascular: Continuing to attempt to keep the patient on the dry side. Cumulative I's and O's currently -3.9 L Gastrointestinal: Continue trophic tube feeding. Continue pantoprazole 40 mg NGT daily. Renal: Cis atracurium is discontinued. Electrolyte replacement protocol ordered. Acid-base status as noted above in pulmonary. Infectious disease: T-max within the last 24 hours is 38.0 C. At risk for secondary infection. Blood cultures last obtained 03/22/2021. Continue to monitor Hematologic: No issues. Hemoglobin remained stable Endocrine: ICU for hyperglycemia management. Random glucose today was 80 Lines and tubes: IJ, arterial lne and ETT placed 03/31/21, cancino to gravity, and OGT - continue use of these lines VTE prophylaxis: Lovenox 40 mg SQ daily CODE STATUS: FULL CODE Disposition: Remain in ICU. Given the gravity of the patient's illness, discussions of CODE STATUS would be highly appropriate. Asked case management and palliative care to try and identify surrogate decision makers. Unclear if tracheostomy may be appropriate. As the patient is currently an inmate, the [facility] will have to give us permission to contact family members. I discussed this with case management and they are currently working on this. I have personally spent 45 minutes of critical care time in the direct management of this patient. This is a life/limb threatening event. This includes time spent evaluating patient, direct bedside care, chart review, placing orders, interpretation of diagnostic studies, discussion with consultants, patient, and family members, as well as other required patient management activities. This time is exclusive of all separately billable procedures, and teaching time and separate from and in addition to any other critical care service time. Admission and Anticipated Discharge Date Admission Date: March 22, 2021 Subjective Attending: Dr. Arita Patient seen and examined in room 209 on the Covid unit. Patient continues to be intubated and on mechanical ventilation. I stopped the cis atracurium while I was in the room. Patient's pupils are equal and round. Patient unable to provide ROS secondary to being intubated. He has been stable over the last 24 hours Ventilator Ordered Settings Ventilator Support Mode Assist Control 04/05/21 15:12 Respiratory Rate 34 04/05/21 15:12 Ventilator Tidal Volume 300 04/05/21 15:12 Setting Minute Ventilation 10.1 04/05/21 15:12 Ventilator Positive Pressure 6 04/02/21 04:00 Support Setting Positive End Expiratory 8 04/05/21 15:12 Pressure Fraction of Inspired Oxygen 90 04/05/21 15:12 Peak Inspiratory Flow 34 04/03/21 15:10 Machine Comment weaned to 90%O2 04/05/21 08:14 Ventilator - PT Measurements Respiratory Rate 34 Exhaled Tidal Volume 301 Minute Ventilation 10.1 Peak Inspiratory Airway 37 Pressure Plateau Pressure 32 Respiratory Cycle Inspiratory: 1:1.5 Expiratory Ratio Inspiratory Phase Time 0.70 End-Tidal CO2 43 Static Lung Compliance 12.54 Dynamic Lung Compliance 10.38 Normal Static Lung Compliance 41.00 Patient Measurements Comment weaned to 80%O2 Review of Systems Review of Systems: Unobtainable due to endotracheal tube Physical Exam Physical Exam: GENERAL : Patient currently with neuromuscular blockade. Mechanically ventilated. EYES: No icterus, gaze conjugate. Pupils equal round and reactive to light NOSE: No evidence of epistaxis MOUTH: No lesions or candidiasis. Endotracheal tube and orogastric tube in place NECK: Supple. No evidence of JVD LUNGS: Mechanically ventilated with good breath sounds. Some fine rales at the bases HEART: Regular, rate controlled. No evidence of ectopy ABDOMEN: Soft, NT, ND, BS Present EXTREMITIES: No LE edema, pedal pulses intact and equal bilaterally. Feet are warm. Radial pulses intact bilaterally NEURO: Currently sedated with propofol. Patient also on cisatracurium. Results & Data Results & Data ([facility]) Vital Signs (Past 12 Hours) Vital Signs Pulse Resp BP Pulse Ox 04/05/21 15:12 74 34 H 93 04/05/21 11:42 87 34 H 90 04/05/21 08:14 104 H 35 H 92 04/05/21 07:00 114 H 33 H 100/60 89 L 04/05/21 06:00 114 H 34 H 116/65 88 L 04/05/21 05:00 112 H 34 H 134/73 89 L 04/05/21 04:00 107 H 34 H 156/81 H 90 Laboratory Results 04/05/21 05:29 04/05/21 05:29 03/30/21 03/31/21 03/31/21 09:29 11:44 16:02 POC pCO2 78 H 88 H POC pO2 76 L 72 L ABG pH 7.45 ABG pCO2 38 ABG pO2 71 L ABG HCO3 26 H ABG O2 Saturation 95.4 H ABG Base Excess 1.8 03/31/21 04/01/21 04/02/21 18:01 04:49 04:43 POC pCO2 77 H 68 H 62 H POC pO2 66 L 68 L 73 L ABG pH ABG pCO2 ABG pO2 ABG HCO3 ABG O2 Saturation ABG Base Excess 04/03/21 04/03/21 04/04/21 04:58 12:07 03:47 POC pCO2 55 H 75 H 71 H POC pO2 63 L 74 L 64 L ABG pH ABG pCO2 ABG pO2 ABG HCO3 ABG O2 Saturation ABG Base Excess 04/05/21 03:09 POC pCO2 68 H POC pO2 64 L ABG pH ABG pCO2 ABG pO2 ABG HCO3 ABG O2 Saturation ABG Base Excess COVID-19 Results 03/22/21 10:50 SARS-CoV-2 (PCR) POSITIVE A* Diagnostic Findings Chest X-Ray 04/05/21 07:00 XR chest 1V portable CLINICAL HISTORY: Resp failure. Follow-up airspace opacities COMPARISON STUDY: 04/04/2021 TECHNIQUE: 1 view of the chest FINDINGS: Single frontal view of the chest demonstrates the heart to again be enlarged. There is again evidence for pneumomediastinum. Tubes and catheters are unchanged. Mild interstitial and alveolar opacities are again seen bilaterally, left greater than right. There is again evidence for increased left lower lobe atelectasis/collapse and probable small left pleural effusion. There is also haziness now seen at the right lung base and small right pleural effusion cannot be excluded. There is no evidence for vascular congestion. There is no acute osseous pathology. IMPRESSION: 1. No significant interval change of bilateral interstitial and alveolar opacities. 2. Increased left lower lobe atelectasis/collapse and left pleural effusion. 3. Interval development of small right pleural effusion. 4. Pneumomediastinum is again seen. ACT 112: Negative or not required by law. Electronically signed by: Ronald Antoine M.D. 04/05/2021 7:52 AM Coding Level of Care Code Critical Care 1st 30-74 mins Diagnoses Hypoxia R09.02 Pneumonia due to 2019 novel coronavirus U07.1; J12.82 Time Spent (min) 35
[2021-04-05] MEDS: NOREPINEPHRINE/D5W 8 MG/508 ML BAG IV SCH ×2 (21:01→21:03)
[2021-04-05] MEDS: PEPTAMEN INTENSE VHP 1.0 CAL 1,000 ML BAG GT SCH (21:02)
[2021-04-05] MEDS: ICU ELECTROLYTE REPLACEMENT PROTOCOL SCH (21:02)
[2021-04-06] MEDS: oxyCODONE HCL SOLN 5 MG/5 ML UDC PO SCH ×4 (01:03→18:10)
[2021-04-06] MEDS: ARTIFICIAL TEARS OP OINT 3.5 GM TUBE OP SCH ×6 (01:59→23:19)
[2021-04-06] MEDS: propofoL 1,000 MG/100 ML VIAL IV SCH ×3 (02:21→09:53)
[2021-04-06] MEDS: MIDAZOLAM HCL 125 MG/250 ML BAG IV SCH (04:12)
[2021-04-06 04:47] LABS: iSTAT Arterial Blood Gas HCO3 39 meg/L (19-24); iSTAT Arterial Blood Gas pCO2 71 mmHg (35-46); iSTAT Arterial Blood Gas pH 7.35 (7.35-7.45); iSTAT Arterial Blood Gas pO2 52 mmHg (80-95); iSTAT Carbon Dioxide > 40 mmol/L (24-31); iSTAT FiO2 75 %; iSTAT Site Art Line
[2021-04-06] MEDS: fentaNYL citrate 2,500 MCG/250 ML BAG IV SCH ×3 (06:29→19:08)
[2021-04-06 06:33] LABS: Eosinophils # (auto) 0.14 K/uL (0-0.5); Eosinophils % (auto) 2.4 %; Hematocrit (blood only) 35.3 % (42-52); Hemoglobin 11.6 g/dL (14.0-18.0); Immature Granulocytes # (auto) 0.07 K/uL (0.00-0.02); Immature Granulocytes % (auto) 1.2 %; Lymphocytes # (auto) 0.83 K/uL (1.2-3.4); Lymphocytes % (auto) 14.4 %; Mean Corpuscular Hemoglobin 29.4 pg (25-34); Mean Corpuscular Hgb Conc 32.9 g/dL (32-36); Mean Corpuscular Volume 89.6 fL (80-100); Mean Platelet Volume 10.2 fL (7.4-10.4); Monocytes # (auto) 0.49 K/uL (0.11-0.59); Monocytes % (auto) 8.5 %; Neutrophils # (auto) 4.23 K/uL (1.4-6.5); Neutrophils % (auto) 73.5 %; Platelet Count 204 K/uL (130-400); RDW Coefficient of Variation 12.8 % (11.5-14.5); RDW Standard Deviation 41.5 fL (36.4-46.3); Red Blood Count 3.94 M/uL (4.7-6.1); White Blood Count 5.76 K/uL (4.8-10.8)
[2021-04-06 07:25] LABS: BUN Creatinine Ratio 30.1 (10-20); Calcium 8.3 mg/dl (8.5-10.1); Creatinine Clr Calc Pharmacy 95.1 ml/min; Est GFR (African American) 115.6 ml/min; Est GFR (Non-African American) 99.8 ml/min; Magnesium 2.3 mg/dl (1.8-2.4); Potassium 3.6 mmol/L (3.5-5.1)
[2021-04-06 07:32] LABS: Phosphorus 2.1 mg/dl (2.5-4.9)
[2021-04-06] MEDS: ENOXAPARIN INJ 40 MG/0.4 ML SYR SQ SCH (08:38)
[2021-04-06] MEDS: dexAMETHasone 10 MG in SYRINGE 0 ML IV SCH (08:38)
[2021-04-06] MEDS: clonazePAM 1 MG TAB PO SCH ×2 (08:44→20:01)
--- NOTE | 2021-04-06 09:45 | XRay Report ---
XR chest 1V portable HISTORY: Breast or failure. Covid pneumonia. COMPARISON: Chest 04/05/2021. FINDINGS: Lines and tubes remain unchanged in position. Prior cholecystectomy. The heart is mildly en larged. Extensive bilateral airspace opacities persist. There are low lung volumes. Pneumomediastinum is slightly improved. IMPRESSION: 1. Satisfactory support line placement. 2. No change in the extensive bilateral airspace opacities consistent with a viral pneumonia. 3. Pneumomediastinum has slightly improved. ACT 112: Negative or not required by law. Electronically signed by: Davy Juarez M.D. 04/06/2021 9:44 AM
[2021-04-06] MEDS: ICU ELECTROLYTE REPLACEMENT PROTOCOL SCH ×2 (11:08→17:25)
[2021-04-06] MEDS ORDERED: SODIUM PHOSPHATE 3 MMOL/1 ML INFUSION IV STA (11:10)
[2021-04-06] MEDS: PANTOprazole 40 MG in SYRINGE 0 ML IV SCH (11:12)
[2021-04-06] MEDS ORDERED: SODIUM PHOSPHATE 15 MMOL in SODIUM CHLORIDE 0.9% 250 ML IV ONE (11:30)
[2021-04-06] MEDS ORDERED: VECURONIUM BROMIDE 10 MG VIAL IV ONE (11:31)
[2021-04-06] MEDS: POTASSIUM CHLORIDE / WTR 20 MEQ/100 ML PLCT IV SCH ×2 (12:15→14:15)
[2021-04-06] MEDS: SENNOSIDES 8.8 MG/5 ML UDC PO SCH ×2 (12:17→20:01)
[2021-04-06] MEDS: LACTULOSE SYRUP 20 GM/30 ML UDC PO SCH (12:17)
[2021-04-06] MEDS: PEPTAMEN INTENSE VHP 1.0 CAL 1,000 ML BAG GT SCH (14:17)
[2021-04-06] MEDS: VECURONIUM BROMIDE 10 MG VIAL IV PRN ×2 (15:00→19:59)
[2021-04-06] MEDS: NOREPINEPHRINE/D5W 8 MG/508 ML BAG IV SCH (15:55)
[2021-04-06] MEDS: TUBE FEEDING WATER FLUSH OG SCH ×2 (17:25→20:01)
--- NOTE | 2021-04-06 18:03 | Critical Care Progress Note ---
Date of Service April 06, 2021 Assessment & Plan (1) Hypoxia: (2) Pneumonia due to 2019 novel coronavirus: Plan: (1) Acute respiratory failure with hypoxia: (2) Pneumonia due to 2019 novel coronavirus: (3) ARDS (adult respiratory distress syndrome): (4) Transaminitis: Impression: 55-year-old male with COVID-19 viral pneumonia and ARDS. Intubated 03/31/2021. Admitted 03/22/2021 24-hour events: Had to increase the patient's oxygen back to 100%. He required increasing levels of sedation and reinstitution neuromuscular blockade due to ventilator dyssynchrony. Recommendations: Neurologic: Back on neuromuscular blockade due to ventilator asynchrony, high pressures, and refractory hypoxemia. Continue oral oxycodone and clonazepam with his regimen to try and decrease his sedative IV requirements. Pulmonary: Continue lung protective ventilation strategy and a high PEEP and low FiO2 strategy. Continue Decadron to 20 mg x 5 days and 10 mg x 10 days. Given his significant barotrauma with pneumomediastinum, will avoid additional prone positioning at this point time. Current vent settings AC 34/300/8/1.0 Plateau pressures on the settings were 26. Most recent blood gas 7.34/68/64. P/F ratio 85 (No change from yesterday) with very poor lung compliance. The patient is not an ECMO candidate. Palliative care discussions are highly appropriate. Day 15 of admission. Day #7 of being intubated. Continue permissive hypercapnia and try and keep pH above 7.1. Cardiovascular: Continuing to attempt to keep the patient on the dry side. Cumulative I's and O's currently -3.9 L Gastrointestinal: Continue trophic tube feeding. Continue pantoprazole 40 mg NGT daily. Renal: Cis atracurium is discontinued. Electrolyte replacement protocol ordered. Acid-base status as noted above in pulmonary. Infectious disease: T-max within the last 24 hours is 38.0 C. At risk for secondary infection. Blood cultures last obtained 03/22/2021. Continue to monitor Hematologic: No issues. Hemoglobin remained stable Endocrine: ICU for hyperglycemia management. Random glucose today was 80 Lines and tubes: IJ, arterial lne and ETT placed 03/31/21, cancino to gravity, and OGT - continue use of these lines VTE prophylaxis: Lovenox 40 mg SQ daily CODE STATUS: FULL CODE Disposition: Remain in ICU. Discussed with patient's daughter and sister on the phone. Multiple insightful questions were answered. I advised them that the patient is critically ill and on life support. He is maxed out on the ventilator. I think there is little else to offer him. If his oxygenation continues to decline, it is likely that this will not be survivable and he will succumb to this illness. We did briefly discuss the futility of CPR in this setting and I recommended transitioning his CODE STATUS to no CPR. They have taken it under advisement. They do not appear to be in a position to consider termination of life support efforts at the current time. We will continue to update them I have personally spent 45 minutes of critical care time in the direct management of this patient. This is a life/limb threatening event. This includes time spent evaluating patient, direct bedside care, chart review, placing orders, interpretation of diagnostic studies, discussion with consultants, patient, and family members, as well as other required patient management activities. This time is exclusive of all separately billable procedures, and teaching time and separate from and in addition to any other critical care service time. Admission and Anticipated Discharge Date Admission Date: March 22, 2021 Subjective intubated and sedated Review of Systems Review of Systems: Unobtainable due to endotracheal tube Physical Exam Physical Exam: Intubated and sedated. Constitutional: WD/WN, vitals as above + mechanically ventilated Neck: trachea midline, no thyromegaly Respiratory: + tachypneic; + abnormal respiratory effort and no respiratory distress Auscultation: + crackles and + wheezes Cardiovascular: RRR, no murmur, no edema Gastrointestinal (Abdomen): normal bowel sounds, soft, nontender, no hepatosplenomegaly Musculoskeletal: Extremities: extremities normal to inspection Skin: no rashes, warm and dry Lymphatic: no cervical lymphadenopathy Results & Data Results & Data ([facility]) Vital Signs (Past 12 Hours) Vital Signs Temp Pulse Pulse Resp BP BP Pulse Ox 04/06/21 18:00 37.6 C H 91 H 34 H 130/68 89 L 04/06/21 17:00 37.7 C H 95 H 34 H 115/74 133/67 88 L 04/06/21 16:00 37.8 C H 99 H 34 H 117/69 135/66 90 04/06/21 15:00 38 C H 109 H 34 H 118/71 146/71 H 92 04/06/21 14:07 105 H 38 H 88 L 04/06/21 14:00 38.3 C H 103 H 34 H 123/78 146/67 H 86 L 04/06/21 13:00 38.6 C H 115 H 34 H 126/69 139/66 85 L 04/06/21 12:00 39 C H 125 H 34 H 121/66 140/64 89 L 04/06/21 11:00 39.1 C H 121 H 34 H 119/67 172/61 H 85 L 04/06/21 10:44 119 H 35 H 85 L 04/06/21 10:00 38.8 C H 116 H 34 H 117/65 167/48 H 81 L 04/06/21 09:00 38.4 C H 102 H 34 H 132/70 162/56 H 87 L 04/06/21 08:05 91 H 34 H 89 L 04/06/21 08:00 38.2 C H 89 86 34 H 96/62 L 134/51 L 89 L 04/06/21 07:00 38 C H 90 34 H 100/61 139/55 L 90 Critical Care Results & Data Vital Signs (Past 12 Hours) Vital Signs Temp Pulse Pulse Resp BP BP Pulse Ox 04/06/21 18:00 37.6 C H 91 H 34 H 130/68 89 L 04/06/21 17:00 37.7 C H 95 H 34 H 115/74 133/67 88 L 04/06/21 16:00 37.8 C H 99 H 34 H 117/69 135/66 90 04/06/21 15:00 38 C H 109 H 34 H 118/71 146/71 H 92 04/06/21 14:07 105 H 38 H 88 L 04/06/21 14:00 38.3 C H 103 H 34 H 123/78 146/67 H 86 L 04/06/21 13:00 38.6 C H 115 H 34 H 126/69 139/66 85 L 04/06/21 12:00 39 C H 125 H 34 H 121/66 140/64 89 L 04/06/21 11:00 39.1 C H 121 H 34 H 119/67 172/61 H 85 L 04/06/21 10:44 119 H 35 H 85 L 04/06/21 10:00 38.8 C H 116 H 34 H 117/65 167/48 H 81 L 04/06/21 09:00 38.4 C H 102 H 34 H 132/70 162/56 H 87 L 04/06/21 08:05 91 H 34 H 89 L 04/06/21 08:00 38.2 C H 89 86 34 H 96/62 L 134/51 L 89 L 04/06/21 07:00 38 C H 90 34 H 100/61 139/55 L 90 Lab & Micro Results (Past 24 Hours) RBC 3.94 M/uL (4.7-6.1) L 04/06/21 WBC 5.76 K/uL (4.8-10.8) 04/06/21 Hgb 11.6 g/dL (14.0-18.0) L 04/06/21 Hct 35.3 % (42-52) L 04/06/21 MCV 89.6 fL (80-100) 04/06/21 MCH 29.4 pg (25-34) 04/06/21 MCHC 32.9 g/dL (32-36) 04/06/21 RDW Standard Deviation 41.5 fL (36.4-46.3) 04/06/21 RDW Coefficient of Variation 12.8 % (11.5-14.5) 04/06/21 Plt Count 204 K/uL (130-400) 04/06/21 MPV 10.2 fL (7.4-10.4) 04/06/21 Neutrophils (%) (Auto) 73.5 % 04/06/21 Lymphocytes (%) (Auto) 14.4 % 04/06/21 Monocytes # (Auto) 0.49 K/uL (0.11-0.59) 04/06/21 Eosinophils # (Auto) 0.14 K/uL (0-0.5) 04/06/21 Immature Granulocyte % (Auto) 1.2 % 04/06/21 Neutrophils # (Auto) 4.23 K/uL (1.4-6.5) 04/06/21 Lymphocytes # (Auto) 0.83 K/uL (1.2-3.4) L 04/06/21 Monocytes # (Auto) 0.49 K/uL (0.11-0.59) 04/06/21 Eosinophils # (Auto) 0.14 K/uL (0-0.5) 04/06/21 Basophils # (Auto) 0.00 K/uL (0-0.2) 04/06/21 Immature Granulocyte # (Auto) 0.07 K/uL (0.00-0.02) H 04/06/21 Na 141 mmol/L (136-145) 04/06/21 K 3.6 mmol/L (3.5-5.1) 04/06/21 Cl 103 mmol/L (98-107) 04/06/21 CO2 35 mmol/L (21-32) H 04/06/21 Anion Gap 3.0 (3-11) 04/06/21 BUN 25 mg/dl (7-18) H 04/06/21 Creatinine 0.83 mg/dl (0.6-1.4) 04/06/21 Estimated GFR ( Amer) 115.6 ml/min 04/06/21 Estimated GFR (Non-Af Amer) 99.8 ml/min 04/06/21 BUN/Creatinine Ratio 30.1 (10-20) H 04/06/21 Glu 89 mg/dl (70-99) 04/06/21 Ca 8.3 mg/dl (8.5-10.1) L 04/06/21 Phosphorus Level 2.1 mg/dl (2.5-4.9) L 04/06/21 Mg 2.3 mg/dl (1.8-2.4) 04/06/21 05:53 04/06/21 Calcium Level 8.3 mg/dl (8.5-10.1) L 04/06/21 05:53 04/06/21 Waldo Test NA 04/06/21 04:33 04/06/21 Diagnostic Findings (Past 24 Hours) Chest X-Ray 04/06/21 07:00 XR chest 1V portable HISTORY: Breast or failure. Covid pneumonia. COMPARISON: Chest 04/05/2021. FINDINGS: Lines and tubes remain unchanged in position. Prior cholecystectomy. The heart is mildly enlarged. Extensive bilateral airspace opacities persist. There are low lung volumes. Pneumomediastinum is slightly improved. IMPRESSION: 1. Satisfactory support line placement. 2. No change in the extensive bilateral airspace opacities consistent with a viral pneumonia. 3. Pneumomediastinum has slightly improved. ACT 112: Negative or not required by law. Electronically signed by: Davy Juarez M.D. 04/06/2021 9:44 AM I & O Totals 24 Hours 04/05/21 04/06/21 04/07/21 06:59 06:59 06:59 Intake Total 1611.617 / 8127.448 2624.968 / 1145.968 639.889 / 639.889 Output Total 1455 / 1455 1300 / 1300 775 / 775 Balance 156.617 / 156.617 -154.032 / -154.032 -135.111 / -135.111 Cumulative 03/22/21 09:18 thru 04/06/21 15:54 Intake Total 61387.875 Output Total 39193 Balance -4504.125 RT Ventilator Mngmt (Last Documented) Ventilator Ordered Settings Ventilator Support Mode Assist Control 04/06/21 16:00 Respiratory Rate 34 04/06/21 18:00 Ventilator Tidal Volume 300 04/06/21 16:00 Setting Minute Ventilation 10.1 04/06/21 14:07 Ventilator Positive Pressure 8 04/06/21 00:00 Support Setting Positive End Expiratory 12 04/06/21 16:00 Pressure Fraction of Inspired Oxygen 100 04/06/21 18:00 Peak Inspiratory Flow 34 04/03/21 15:10 Machine Comment SPO2 only 85-86% 04/06/21 11:20 Ventilator - PT Measurements Respiratory Rate 34 Exhaled Tidal Volume 280 Minute Ventilation 10.1 Peak Inspiratory Airway 37 Pressure Plateau Pressure 33 Respiratory Cycle Inspiratory: 1:2.3 Expiratory Ratio Inspiratory Phase Time 0.70 End-Tidal CO2 42 Static Lung Compliance 13.33 Dynamic Lung Compliance 11.20 Normal Static Lung Compliance 42.00 Patient Measurements Comment weaned to 80%O2 Coding Level of Care Code Critical Care 1st 30-74 mins Diagnoses Hypoxia R09.02 Pneumonia due to 2019 novel coronavirus U07.1; J12.82 Time Spent (min) 45
--- NOTE | 2021-04-06 19:00 | Hospitalist Progress Note ---
Date of Service April 06, 2021 Assessment & Plan (1) Pneumonia due to 2019 novel coronavirus: (2) Hypoxia: (3) Acute respiratory failure with hypoxia: Plan: per Dr. Diop's notes with addendum: (1) Pneumonia due to 2019 novel coronavirus: (2) Acute respiratory failure with hypoxia: Plan: Acute hypoxic respiratory failure COVID-19 Community-acquired pneumonia Not vaccinated against Covid, signs and symptoms since 16 days. Extensive pneumomediastinum --CTA:Cardiomegaly without pulmonary emboli. Extensive bilateral pulmonary opacities compatible with viral pneumonia. Mild reactive mediastinal adenopathy. -Procalcitonin 0.87> 0.37 -Completed empiric Rocephin course weaned off of Pressor s/p intubation 03/31 Patient not a candidate for ECMO as per critical care Vent management as per ICU team on neuromuscular blockade continued on dexamethasone On tube feeds On Lovenox for DVT prophylaxis Palliative care on board JOHNNA unknown baseline, unknown if h/o CKD Creatinine levels normalized stable Hyperkalemia Resolved Monitor BMP Hepatic Steatosis Transaminitis Transaminitis likely secondary to Covid, LFTs trended down DVT Px: Lovenox SQ CODE STATUS: Full Code Admission and Anticipated Discharge Date Admission Date: March 22, 2021 Subjective ff up for acute hypoxic respiratory failure, Covid pneumonia, etc. Seen resting in bed, intubated, sedated Not in distress Tube feeding progress Neuromuscular blockade in effect No other issues per rug frame mounter of Systems Review of Systems: Unobtainable due to endotracheal tube and Unobtainable due to reduced consciousness Physical Exam Physical Exam: General- intubated, not in distress, breathing with no effort or accessory muscle use Eyes- anicteric Neck- no JVD Lungs- mild rhonchi BL anteriorly Heart- normal rate, regular rhythm; no murmurs Abdomen- normal bowel sounds, nondistended, soft, nontender Extremities- no pretibial edema, no calf tenderness Neuro-sedated Skin- warm & dry Results & Data Results & Data ([facility]) Vital Signs (Past 12 Hours) Vital Signs Temp Pulse Pulse Resp BP BP Pulse Ox 04/06/21 18:00 37.6 C H 91 H 34 H 130/68 89 L 04/06/21 17:00 37.7 C H 95 H 34 H 115/74 133/67 88 L 12/09/21 16:00 37.8 C H 99 H 34 H 117/69 135/66 90 04/06/21 15:00 38 C H 109 H 34 H 118/71 146/71 H 92 04/06/21 14:07 105 H 38 H 88 L 04/06/21 14:00 38.3 C H 103 H 34 H 123/78 146/67 H 86 L 04/06/21 13:00 38.6 C H 115 H 34 H 126/69 139/66 85 L 04/06/21 12:00 39 C H 125 H 34 H 121/66 140/64 89 L 04/06/21 11:00 39.1 C H 121 H 34 H 119/67 172/61 H 85 L 04/06/21 10:44 119 H 35 H 85 L 04/06/21 10:00 38.8 C H 116 H 34 H 117/65 167/48 H 81 L 04/06/21 09:00 38.4 C H 102 H 34 H 132/70 162/56 H 87 L 04/06/21 08:05 91 H 34 H 89 L 04/06/21 08:00 38.2 C H 89 86 34 H 96/62 L 134/51 L 89 L 04/06/21 07:00 38 C H 90 34 H 100/61 139/55 L 90 all noted and reviewed including below
--- NOTE | 2021-04-06 19:23 | Hospitalist Progress Note ---
Date of Service April 06, 2021 delayed entry date of service noted above Assessment & Plan (1) Pneumonia due to 2019 novel coronavirus: (2) Hypoxia: (3) Acute respiratory failure with hypoxia: Plan: per Dr. Diop's notes with addendum: (1) Pneumonia due to 2019 novel coronavirus: (2) Acute respiratory failure with hypoxia: Plan: Acute hypoxic respiratory failure COVID-19 Community-acquired pneumonia Not vaccinated against Covid, signs and symptoms since 16 days. Extensive pneumomediastinum --CTA:Cardiomegaly without pulmonary emboli. Extensive bilateral pulmonary opacities compatible with viral pneumonia. Mild reactive mediastinal adenopathy. -Procalcitonin 0.87> 0.37 -Completed empiric Rocephin course weaned off of Pressor s/p intubation 03/31 Patient not a candidate for ECMO as per critical care Now 100% FiO2 Sedation increased,(+) neuromuscular blockade due to ventilator asynchrony Vent management as per ICU team continued on dexamethasone On tube feeds On Lovenox for DVT prophylaxis Palliative care on board JOHNNA unknown baseline, unknown if h/o CKD Creatinine levels normalized stable Hyperkalemia Resolved Monitor BMP Hepatic Steatosis Transaminitis Transaminitis likely secondary to Covid, LFTs trended down DVT Px: Lovenox SQ CODE STATUS: Full Code Admission and Anticipated Discharge Date Admission Date: March 22, 2021 Subjective Follow-up for acute hypoxic respiratory failure, COVID-19 pneumonia, etc. Sedated, intubated Not in distress FiO2 100% (+) Neuromuscular blockade Breathing with no signs of effort No signs of pain No other issues noted Review of Systems Review of Systems: all noted and negative except for above Physical Exam Physical Exam: General-sedated, breathingwith no effort or accessory muscle use Eyes- anicteric Neck- no JVD ET tube in place, NG tube in place No bleeding Lungs-positive rhonchi anteriorly No wheezing Good air entry bilaterally Heart- normal rate, regular rhythm; no murmurs Abdomen- normal bowel sounds, nondistended, soft, nontender Extremities- no pretibial edema, no calf tenderness Neuro-sedated Skin- warm & dry Results & Data Results & Data ([facility]) Vital Signs (Past 12 Hours) Vital Signs Temp Pulse Pulse Resp BP BP Pulse Ox 04/06/21 18:00 37.6 C H 91 H 34 H 130/68 89 L 04/06/21 17:00 37.7 C H 95 H 34 H 115/74 133/67 88 L 04/06/21 16:00 37.8 C H 99 H 34 H 117/69 135/66 90 04/06/21 15:00 38 C H 109 H 34 H 118/71 146/71 H 92 04/06/21 14:07 105 H 38 H 88 L 04/06/21 14:00 38.3 C H 103 H 34 H 123/78 146/67 H 86 L 04/06/21 13:00 38.6 C H 115 H 34 H 126/69 139/66 85 L 04/06/21 12:00 39 C H 125 H 34 H 121/66 140/64 89 L 04/06/21 11:00 39.1 C H 121 H 34 H 119/67 172/61 H 85 L 04/06/21 10:44 119 H 35 H 85 L 04/06/21 10:00 38.8 C H 116 H 34 H 117/65 167/48 H 81 L 04/06/21 09:00 38.4 C H 102 H 34 H 132/70 162/56 H 87 L 04/06/21 08:05 91 H 34 H 89 L 04/06/21 08:00 38.2 C H 89 86 34 H 96/62 L 134/51 L 89 L all noted and reviewed including below
[2021-04-06] MEDS: MIDAZOLAM BOLUS FROM BAG IV PRN ×2 (21:26→23:42)
[2021-04-07] MEDS: oxyCODONE HCL SOLN 5 MG/5 ML UDC PO SCH ×5 (00:01→23:52)
[2021-04-07] MEDS: VECURONIUM BROMIDE 10 MG VIAL IV PRN ×3 (00:02→08:38)
[2021-04-07] MEDS: TUBE FEEDING WATER FLUSH OG SCH ×6 (01:21→21:08)
[2021-04-07] MEDS: ARTIFICIAL TEARS OP OINT 3.5 GM TUBE OP SCH ×6 (01:23→23:14)
[2021-04-07] MEDS: MIDAZOLAM BOLUS FROM BAG IV PRN ×2 (01:51→05:00)
[2021-04-07] MEDS: MIDAZOLAM HCL 125 MG/250 ML BAG IV SCH ×2 (02:25→17:54)
[2021-04-07 04:30] LABS: iSTAT Art Bld Gas pCO2 Correct 78 mmHg (35-46); iSTAT Art Bld Gas pH Corrected 7.312 (7.35-7.45); iSTAT Arterial Blood Gas HCO3 40 meg/L (19-24); iSTAT Arterial Blood Gas pCO2 78 mmHg (35-46); iSTAT Arterial Blood Gas pH 7.31 (7.35-7.45); iSTAT Arterial Blood Gas pO2 55 mmHg (80-95); iSTAT Arterial Blood Gas pO2 C 55; iSTAT Carbon Dioxide > 40 mmol/L (24-31); iSTAT FiO2 100 %; iSTAT Hematocrit 34 % (42-52); iSTAT Hemoglobin 11.6 g/dl (14.0-18.0); iSTAT Potassium 4.1 mmol/L (3.3-5.0); iSTAT Site Art Line; iSTAT Sodium 142 mmol/L (135-144)
[2021-04-07] MEDS: fentaNYL citrate 2,500 MCG/250 ML BAG IV SCH ×3 (04:43→21:28)
[2021-04-07] MEDS ORDERED: MIDAZOLAM BOLUS FROM BAG IV ONE (05:34)
[2021-04-07] MEDS ORDERED: LABETALOL HCL IV 5 MG/ML 20ML IV STA (06:20)
[2021-04-07 06:43] LABS: Basophils # (auto) 0.01 K/uL (0-0.2); Basophils % (auto) 0.1 %; Eosinophils # (auto) 0.12 K/uL (0-0.5); Eosinophils % (auto) 1.2 %; Hematocrit (blood only) 37.5 % (42-52); Hemoglobin 12.2 g/dL (14.0-18.0); Immature Granulocytes # (auto) 0.12 K/uL (0.00-0.02); Immature Granulocytes % (auto) 1.2 %; Lymphocytes # (auto) 0.83 K/uL (1.2-3.4); Lymphocytes % (auto) 8.1 %; Mean Corpuscular Hemoglobin 29.6 pg (25-34); Mean Corpuscular Hgb Conc 32.5 g/dL (32-36); Mean Platelet Volume 10.4 fL (7.4-10.4); Monocytes # (auto) 0.49 K/uL (0.11-0.59); Monocytes % (auto) 4.8 %; Neutrophils # (auto) 8.69 K/uL (1.4-6.5); Neutrophils % (auto) 84.6 %; Platelet Count 196 K/uL (130-400); RDW Coefficient of Variation 13.5 % (11.5-14.5); RDW Standard Deviation 44.2 fL (36.4-46.3); Red Blood Count 4.12 M/uL (4.7-6.1); White Blood Count 10.26 K/uL (4.8-10.8)
[2021-04-07 07:24] LABS: BUN Creatinine Ratio 29.9 (10-20); Creatinine Clr Calc Pharmacy 96.3 ml/min; Est GFR (African American) 116.2 ml/min; Est GFR (Non-African American) 100.3 ml/min; Phosphorus 2.5 mg/dl (2.5-4.9)
[2021-04-07] MEDS ORDERED: SODIUM PHOSPHATE 3 MMOL/1 ML INFUSION IV STA (08:14)
--- NOTE | 2021-04-07 08:22 | XRay Report ---
XR chest 1V portable HISTORY: Respiratory failure. Pneumonia. Follow-up. Shortness of breath. COMPARISON: Chest 04/06/2021. FINDINGS: Pneumomediastinum is again noted and has not significantly changed. No pneumothorax. No ple ural fusions. The heart remains mildly enlarged. There is satisfactory support line placement, unchan ged. Prior cholecystectomy. Near diffuse bilateral hazy airspace opacities persist. IMPRESSION: 1. Satisfactory support line placement. 2. Diffuse bilateral hazy airspace opacities are not significantly changed. 3. Satisfactory support line placement. ACT 112: Negative or not required by law. Electronically signed by: Davy Juarez M.D. 04/07/2021 8:20 AM
[2021-04-07] MEDS ORDERED: SODIUM PHOSPHATE 15 MMOL in SODIUM CHLORIDE 0.9% 250 ML IV ONE (09:00)
[2021-04-07] MEDS: ICU ELECTROLYTE REPLACEMENT PROTOCOL SCH ×2 (09:09→17:06)
[2021-04-07] MEDS: clonazePAM 1 MG TAB PO SCH ×2 (09:17→21:08)
[2021-04-07] MEDS: MAGNESIUM SULFATE / D5W 1 GM/100 ML BAG IV SCH ×2 (09:17→11:06)
[2021-04-07] MEDS: ACETAMINOPHEN 325 MG TAB PO PRN (09:17)
[2021-04-07] MEDS: LACTULOSE SYRUP 20 GM/30 ML UDC PO SCH (09:19)
[2021-04-07] MEDS: ENOXAPARIN INJ 40 MG/0.4 ML SYR SQ SCH (09:19)
[2021-04-07] MEDS: dexAMETHasone 10 MG in SYRINGE 0 ML IV SCH (09:19)
[2021-04-07] MEDS: SENNOSIDES 8.8 MG/5 ML UDC PO SCH ×2 (09:19→21:08)
[2021-04-07] MEDS ORDERED: FUROSEMIDE INJ 20 MG/2 ML VIAL IV STA (10:30)
[2021-04-07] MEDS ORDERED: VANCOMYCIN CONSULT ACTIVE PRN (10:32)
[2021-04-07] MEDS ORDERED: METHYLNALTREXONE BROMIDE 12 MG/0.6 ML VIAL SQ ONE (10:45)
[2021-04-07] MEDS ORDERED: VANCOMYCIN HCL 1,750 MG in SODIUM CHLORIDE 0.9% 500 ML IV ONE (10:45)
[2021-04-07] MEDS: PANTOprazole 40 MG in SYRINGE 0 ML IV SCH (10:54)
[2021-04-07] MEDS: PEPTAMEN INTENSE VHP 1.0 CAL 1,000 ML BAG GT SCH (10:58)
[2021-04-07] MEDS: CEFEPIME 2,000 MG in SYRINGE 0 ML IV SCH ×2 (11:09→17:57)
[2021-04-07] MEDS: CISATRACURIUM BESYLATE 40 MG in 0.9 % SODIUM CHLORIDE 80 ML IV SCH ×2 (12:03→20:40)
--- NOTE | 2021-04-07 14:02 | Pharmacy Report ---
Pharmacy Abx Dose Short Note - Date of Service April 07, 2021 - Assessment & Plan Assessment * 55 year old incarcerated male with no PMH other than psoriasis admitted 03/22 with COVID. Patient is currently intubated and on paralytics and pressors. New-onset fever and slight bump in WBC noted therefore initiating cefepime and vancomycin for treatment of possible HAP. * Sputum and MRSA nasal swab ordered - per ICU rounds discussion, a potential change to cefepime monotherapy may be considered if MRSA nasal swab negative and if sputum today without GPC * SCr stable and at/near baseline Vancomycin * 21 mg/kg loading dose then per AUC dosing (on more aggressive side) Plan * Vancomycin 1750 mg IV x1 then 1250 mg IV q12h * Trough 04/08 @ 2130 Pharmacy will continue to follow and will adjust dose/frequency as necessary. Thank you.
--- NOTE | 2021-04-07 15:30 | Critical Care Progress Note ---
Date of Service April 07, 2021 Assessment & Plan (1) Hypoxia: (2) Pneumonia due to 2019 novel coronavirus: Plan: (1) Acute respiratory failure with hypoxia: (2) Pneumonia due to 2019 novel coronavirus: (3) ARDS (adult respiratory distress syndrome): (4) Transaminitis: Impression: 55-year-old male with COVID-19 viral pneumonia and ARDS. Intubated 03/31/2021. Admitted 03/22/2021 24-hour events: Continues to be critically ill without any significant progress. Had to go back on neuromuscular blockade Recommendations: Neurologic: Back on neuromuscular blockade due to ventilator asynchrony, high pressures, and refractory hypoxemia. Continue oral oxycodone and clonazepam with his regimen to try and decrease his sedative IV requirements. Pulmonary: Continue lung protective ventilation strategy and a high PEEP and low FiO2 strategy. Continue Decadron 20 mg x 5 days and 10 mg x 10 days. Given his significant barotrauma with pneumomediastinum, have been trying to avoid additional prone positioning at this point time. Current vent settings AC 34/300/12/1.0 Plateau pressures on the settings were 31. Most recent blood gas 7.31/78/55. P/F ratio 55 worse than yesterday with very poor lung compliance. The patient is not an ECMO candidate. Palliative care discussions have been undertaken but the family is not receptive. Day 16 of admission. Day #8 of being intubated. Continue permissive hypercapnia and try and keep pH above 7.1. Cardiovascular: Continuing to attempt to keep the patient on the dry side. Cumulative I's and O's currently -3.9 L. We'll pursue additional diuretics. Gastrointestinal: Continue trophic tube feeding. Continue pantoprazole 40 mg NGT daily. Renal: Cis atracurium is discontinued. Electrolyte replacement protocol ordered. Acid-base status as noted above in pulmonary. Infectious disease: Continues to be febrile. Cultures are showing no growth to date. Starting cefepime and vancomycin. Await culture data. Hematologic: No issues. Hemoglobin remained stable Endocrine: ICU for hyperglycemia management. Lines and tubes: IJ, arterial lne and ETT placed 03/31/21, cancino to gravity, and OGT - continue use of these lines VTE prophylaxis: Lovenox 40 mg SQ daily CODE STATUS: FULL CODE Disposition: Remain in ICU. We'll have hospitalist update the family today. Recommend readdressing CODE STATUS. CPR would not be effective in improving this patient's outcome. Would be wholly appropriate to consider transition to palliative care. Unfortunately, I'm not sure that we have much else to offer this patient at this point in time. This does not appear to be a salvageable position and certainly not one that would improve with CPR I have personally spent 45 minutes of critical care time in the direct management of this patient. This is a life/limb threatening event. This includes time spent evaluating patient, direct bedside care, chart review, placing orders, interpretation of diagnostic studies, discussion with consultants, patient, and family members, as well as other required patient management activities. This time is exclusive of all separately billable procedures, and teaching time and separate from and in addition to any other critical care service time. Admission and Anticipated Discharge Date Admission Date: March 22, 2021 Subjective intubated and sedated Review of Systems Review of Systems: Unobtainable due to endotracheal tube Physical Exam Physical Exam: Intubated and sedated. Constitutional: WD/WN, vitals as above + mechanically ventilated Neck: trachea midline, no thyromegaly Respiratory: + tachypneic; + abnormal respiratory effort and no respiratory distress Auscultation: + crackles and + wheezes Cardiovascular: RRR, no murmur, no edema Gastrointestinal (Abdomen): normal bowel sounds, soft, nontender, no hepatosplenomegaly Musculoskeletal: Extremities: extremities normal to inspection Skin: no rashes, warm and dry Lymphatic: no cervical lymphadenopathy Results & Data Results & Data ([facility]) Vital Signs (Past 12 Hours) Vital Signs Temp Pulse Resp BP Pulse Ox 04/07/21 15:14 115 H 32 H 92 04/07/21 13:00 37.7 C H 116 H 35 H 146/75 H 92 04/07/21 12:00 37.8 C H 120 H 37 H 135/7 L 90 04/07/21 11:10 109 H 32 H 89 L 04/07/21 11:00 38.6 C H 122 H 36 H 105/66 86 L 04/07/21 10:00 39.4 C H 133 H 32 H 126/70 86 L 04/07/21 09:00 39.6 C H 131 H 34 H 158/79 H 87 L 04/07/21 08:00 38.2 C H 122 H 28 H 109/67 86 L 04/07/21 07:38 112 H 39 H 87 L 04/07/21 07:00 38.9 C H 106 H 39 H 165/67 H 86 L 04/07/21 06:30 113 H 30 H 85 L 04/07/21 06:00 109 H 33 H 127/85 87 L 04/07/21 05:30 108 H 35 H 92 04/07/21 05:00 106 H 34 H 137/82 93 04/07/21 04:30 100 H 35 H 92 04/07/21 04:00 99 H 30 H 123/74 89 L 04/07/21 03:57 101 H 34 H 89 L 04/07/21 03:30 98 H 32 H 89 L Critical Care Results & Data Vital Signs (Past 12 Hours) Vital Signs Temp Pulse Resp BP Pulse Ox 04/07/21 15:14 115 H 32 H 92 04/07/21 13:00 37.7 C H 116 H 35 H 146/75 H 92 04/07/21 12:00 37.8 C H 120 H 37 H 135/7 L 90 04/07/21 11:10 109 H 32 H 89 L 04/07/21 11:00 38.6 C H 122 H 36 H 105/66 86 L 04/07/21 10:00 39.4 C H 133 H 32 H 126/70 86 L 04/07/21 09:00 39.6 C H 131 H 34 H 158/79 H 87 L 04/07/21 08:00 38.2 C H 122 H 28 H 109/67 86 L 04/07/21 07:38 112 H 39 H 87 L 04/07/21 07:00 38.9 C H 106 H 39 H 165/67 H 86 L 04/07/21 06:30 113 H 30 H 85 L 04/07/21 06:00 109 H 33 H 127/85 87 L 04/07/21 05:30 108 H 35 H 92 04/07/21 05:00 106 H 34 H 137/82 93 04/07/21 04:30 100 H 35 H 92 04/07/21 04:00 99 H 30 H 123/74 89 L 04/07/21 03:57 101 H 34 H 89 L 04/07/21 03:30 98 H 32 H 89 L Lab & Micro Results (Past 24 Hours) RBC 4.12 M/uL (4.7-6.1) L 04/07/21 WBC 10.26 K/uL (4.8-10.8) 04/07/21 Hgb 12.2 g/dL (14.0-18.0) L 04/07/21 Hct 37.5 % (42-52) L 04/07/21 MCV 91.0 fL (80-100) 04/07/21 MCH 29.6 pg (25-34) 04/07/21 MCHC 32.5 g/dL (32-36) 04/07/21 RDW Standard Deviation 44.2 fL (36.4-46.3) 04/07/21 RDW Coefficient of Variation 13.5 % (11.5-14.5) 04/07/21 Plt Count 196 K/uL (130-400) 04/07/21 MPV 10.4 fL (7.4-10.4) 04/07/21 Neutrophils (%) (Auto) 84.6 % 04/07/21 Lymphocytes (%) (Auto) 8.1 % 04/07/21 Monocytes # (Auto) 0.49 K/uL (0.11-0.59) 04/07/21 Eosinophils # (Auto) 0.12 K/uL (0-0.5) 04/07/21 Immature Granulocyte % (Auto) 1.2 % 04/07/21 Neutrophils # (Auto) 8.69 K/uL (1.4-6.5) H 04/07/21 Lymphocytes # (Auto) 0.83 K/uL (1.2-3.4) L 04/07/21 Monocytes # (Auto) 0.49 K/uL (0.11-0.59) 04/07/21 Eosinophils # (Auto) 0.12 K/uL (0-0.5) 04/07/21 Basophils # (Auto) 0.01 K/uL (0-0.2) 04/07/21 Immature Granulocyte # (Auto) 0.12 K/uL (0.00-0.02) H 04/07/21 Na 144 mmol/L (136-145) 04/07/21 K 4.0 mmol/L (3.5-5.1) 04/07/21 Cl 104 mmol/L (98-107) 04/07/21 CO2 36 mmol/L (21-32) H 04/07/21 Anion Gap 4.0 (3-11) 04/07/21 BUN 24 mg/dl (7-18) H 04/07/21 Creatinine 0.82 mg/dl (0.6-1.4) 04/07/21 Estimated GFR ( Amer) 116.2 ml/min 04/07/21 Estimated GFR (Non-Af Amer) 100.3 ml/min 04/07/21 BUN/Creatinine Ratio 29.9 (10-20) H 04/07/21 Glu 110 mg/dl (70-99) H 04/07/21 Ca 8.0 mg/dl (8.5-10.1) L 04/07/21 Phosphorus Level 2.5 mg/dl (2.5-4.9) 04/07/21 Mg 2.0 mg/dl (1.8-2.4) 04/07/21 06:07 04/07/21 Calcium Level 8.0 mg/dl (8.5-10.1) L 04/07/21 06:07 04/07/21 Waldo Test NA 04/07/21 04:07 04/07/21 Diagnostic Findings (Past 24 Hours) Chest X-Ray 04/07/21 07:00 XR chest 1V portable HISTORY: Respiratory failure. Pneumonia. Follow-up. Shortness of breath. COMPARISON: Chest 04/06/2021. FINDINGS: Pneumomediastinum is again noted and has not significantly changed. No pneumothorax. No pleural fusions. The heart remains mildly enlarged. There is satisfactory support line placement, unchanged. Prior cholecystectomy. Near diffuse bilateral hazy airspace opacities persist. IMPRESSION: 1. Satisfactory support line placement. 2. Diffuse bilateral hazy airspace opacities are not significantly changed. 3. Satisfactory support line placement. ACT 112: Negative or not required by law. Electronically signed by: Davy Juarez M.D. 04/07/2021 8:20 AM I & O Totals 24 Hours 04/06/21 04/07/21 04/08/21 06:59 06:59 06:59 Intake Total 1145.968 / 9081.117 1000.355 / 8705.404 5425.066 / 1193.066 Output Total 1300 / 1300 1575 / 1575 1650 / 1650 Balance -154.032 / -154.032 -103.645 / -103.645 -456.934 / -456.934 Cumulative 03/22/21 09:18 thru 04/07/21 14:47 Intake Total 99864.407 Output Total 79761 Balance -4929.593 RT Ventilator Mngmt (Last Documented) Ventilator Ordered Settings Ventilator Support Mode Assist Control 04/07/21 15:14 Respiratory Rate 32 04/07/21 15:14 Ventilator Tidal Volume 300 04/07/21 15:14 Setting Minute Ventilation 10.1 04/07/21 15:14 Ventilator Positive Pressure 12 04/06/21 19:33 Support Setting Positive End Expiratory 12 04/07/21 15:14 Pressure Fraction of Inspired Oxygen 100 04/07/21 15:14 Peak Inspiratory Flow 34 04/03/21 15:10 Machine Comment SPO2 only 85-86% 04/06/21 11:20 Ventilator - PT Measurements Respiratory Rate 32 Exhaled Tidal Volume 320 Minute Ventilation 10.1 Peak Inspiratory Airway 36 Pressure Plateau Pressure 31 Respiratory Cycle Inspiratory: 1:1.5 Expiratory Ratio Inspiratory Phase Time 0.7 End-Tidal CO2 49 Static Lung Compliance 16.84 Dynamic Lung Compliance 13.33 Normal Static Lung Compliance 43.00 Patient Measurements Comment weaned to 80%O2 Coding Level of Care Code Critical Care 1st 30-74 mins Diagnoses Hypoxia R09.02 Pneumonia due to 2019 novel coronavirus U07.1; J12.82 Time Spent (min) 45
[2021-04-07] MEDS ORDERED: EPOPROSTENOL SODIUM (GLYCINE) 1.5 MG/5 ML INH PRN (16:06)
[2021-04-07] MEDS: FUROSEMIDE INJ 20 MG/2 ML VIAL IV SCH (17:06)
--- NOTE | 2021-04-07 20:10 | Hospitalist Progress Note ---
Date of Service April 07, 2021 delayed entry date of service noted above Assessment & Plan (1) Pneumonia due to 2019 novel coronavirus: (2) Hypoxia: (3) Acute respiratory failure with hypoxia: Plan: per Dr. Diop's notes with addendum: (1) Pneumonia due to 2019 novel coronavirus: (2) Acute respiratory failure with hypoxia: Plan: Acute hypoxic respiratory failure COVID-19 Community-acquired pneumonia Not vaccinated against Covid, signs and symptoms since 16 days. Extensive pneumomediastinum --CTA:Cardiomegaly without pulmonary emboli. Extensive bilateral pulmonary opacities compatible with viral pneumonia. Mild reactive mediastinal adenopathy. -Procalcitonin 0.87> 0.37 -Completed empiric Rocephin course weaned off of Pressor s/p intubation 03/31 Patient not a candidate for ECMO as per critical care Still requiring FiO2 100% Vent management as per ICU team On sedation, on neuromuscular blockade continued on dexamethasone On tube feeds On Lovenox for DVT prophylaxis Palliative care on board No significant problems at this time per Dr. Arita JOHNNA unknown baseline, unknown if h/o CKD Creatinine levels normalized stable Hyperkalemia Resolved Monitor BMP Hepatic Steatosis Transaminitis Transaminitis likely secondary to Covid, LFTs trended down DVT Px: Lovenox SQ CODE STATUS: Full Code Admission and Anticipated Discharge Date Admission Date: March 22, 2021 Subjective Follow-up for acute hypoxic respiratory failure, COVID-19 pneumonia, etc. Sedated, intubated No signs of respiratory distress No signs of pain, tachypnea Afebrile No other acute issues noted Review of Systems Review of Systems: all noted and negative except for above Physical Exam Physical Exam: General-patient is sedated, appears comfortable, breathing with no effort or accessory muscle use Eyes- anicteric ET and NG tube in place, no bleeding noted Neck- no JVD Lungs-positive bilateral rhonchi anterior Rafi, no wheezing Heart- normal rate, regular rhythm; no murmurs Abdomen- normal bowel sounds, nondistended, soft, nontender Extremities- no pretibial edema, no calf tenderness Neuro-patient sedated Skin- warm & dry Results & Data Results & Data ([facility]) Vital Signs (Past 12 Hours) Vital Signs Temp Pulse Resp BP Pulse Ox 04/07/21 19:31 106 H 36 H 114/76 93 04/07/21 18:30 105 H 34 H 131/80 91 04/07/21 18:27 102 H 35 H 90 04/07/21 18:00 37.3 C 111 H 28 H 148/67 H 93 04/07/21 17:38 107 H 34 H 126/77 93 04/07/21 16:00 37.2 C 115 H 28 H 116/76 92 04/07/21 15:14 115 H 32 H 92 04/07/21 15:00 37.2 C 113 H 28 H 137/70 93 04/07/21 14:00 37.2 C 110 H 28 H 136/68 93 04/07/21 13:00 37.7 C H 116 H 35 H 146/75 H 92 04/07/21 12:00 37.8 C H 120 H 37 H 135/7 L 90 04/07/21 11:10 109 H 32 H 89 L 04/07/21 11:00 38.6 C H 122 H 36 H 105/66 86 L 04/07/21 10:00 39.4 C H 133 H 32 H 126/70 86 L 04/07/21 09:00 39.6 C H 131 H 34 H 158/79 H 87 L all noted and reviewed including below
[2021-04-07] MEDS: VANCOMYCIN HCL 1,250 MG in SODIUM CHLORIDE 0.9% 250 ML IV SCH (23:13)
[2021-04-08] MEDS: TUBE FEEDING WATER FLUSH OG SCH ×7 (01:00→23:58)
[2021-04-08] MEDS: CEFEPIME 2,000 MG in SYRINGE 0 ML IV SCH ×3 (02:15→18:26)
[2021-04-08] MEDS: ARTIFICIAL TEARS OP OINT 3.5 GM TUBE OP SCH ×6 (02:30→22:07)
[2021-04-08 05:00] LABS: iSTAT Arterial Blood Gas HCO3 45 meg/L (19-24); iSTAT Arterial Blood Gas pCO2 87 mmHg (35-46); iSTAT Arterial Blood Gas pH 7.32 (7.35-7.45); iSTAT Arterial Blood Gas pO2 58 mmHg (80-95); iSTAT Carbon Dioxide > 40 mmol/L (24-31); iSTAT FiO2 100 %; iSTAT Site Art Line
[2021-04-08] MEDS: CISATRACURIUM BESYLATE 40 MG in 0.9 % SODIUM CHLORIDE 80 ML IV SCH ×4 (06:49→23:49)
[2021-04-08] MEDS: fentaNYL citrate 2,500 MCG/250 ML BAG IV SCH ×3 (06:50→23:49)
[2021-04-08] MEDS: MIDAZOLAM HCL 125 MG/250 ML BAG IV SCH ×3 (06:52→21:09)
[2021-04-08] MEDS: NOREPINEPHRINE/D5W 8 MG/508 ML BAG IV SCH ×2 (07:14→11:52)
[2021-04-08] MEDS: fentaNYL DRIP 1,250 MCG/250 ML BAG IV SCH (07:15)
[2021-04-08 07:35] LABS: Eosinophils # (auto) 0.03 K/uL (0-0.5); Eosinophils % (auto) 0.4 %; Hematocrit (blood only) 33.4 % (42-52); Hemoglobin 10.9 g/dL (14.0-18.0); Immature Granulocytes # (auto) 0.07 K/uL (0.00-0.02); Immature Granulocytes % (auto) 0.9 %; Lymphocytes # (auto) 0.52 K/uL (1.2-3.4); Mean Corpuscular Hemoglobin 29.5 pg (25-34); Mean Corpuscular Hgb Conc 32.6 g/dL (32-36); Mean Corpuscular Volume 90.5 fL (80-100); Mean Platelet Volume 10.2 fL (7.4-10.4); Monocytes # (auto) 0.49 K/uL (0.11-0.59); Monocytes % (auto) 6.6 %; Neutrophils # (auto) 6.37 K/uL (1.4-6.5); Neutrophils % (auto) 85.1 %; Platelet Count 171 K/uL (130-400); RDW Coefficient of Variation 13.1 % (11.5-14.5); Red Blood Count 3.69 M/uL (4.7-6.1); White Blood Count 7.48 K/uL (4.8-10.8)
[2021-04-08 08:29] LABS: BUN Creatinine Ratio 37.8 (10-20); Creatinine Clr Calc Pharmacy 111.2 ml/min; Est GFR (African American) 123.3 ml/min; Est GFR (Non-African American) 106.4 ml/min; Magnesium 1.9 mg/dl (1.8-2.4); Phosphorus 1.7 mg/dl (2.5-4.9); Potassium 3.3 mmol/L (3.5-5.1)
[2021-04-08] MEDS ORDERED: SODIUM PHOSPHATE 3 MMOL/1 ML INFUSION IV STA (08:37)
[2021-04-08] MEDS ORDERED: POTASSIUM CHLORIDE 20 MEQ/15 ML UDC PO STA (08:46)
[2021-04-08] MEDS: oxyCODONE HCL SOLN 5 MG/5 ML UDC PO SCH ×4 (08:50→23:55)
[2021-04-08] MEDS: MAGNESIUM SULFATE / D5W 1 GM/100 ML BAG IV SCH ×2 (08:50→12:02)
[2021-04-08] MEDS: LACTULOSE SYRUP 20 GM/30 ML UDC PO SCH (08:50)
[2021-04-08] MEDS: clonazePAM 1 MG TAB PO SCH ×2 (08:51→21:08)
[2021-04-08] MEDS: ENOXAPARIN INJ 40 MG/0.4 ML SYR SQ SCH (08:52)
[2021-04-08] MEDS: FUROSEMIDE INJ 20 MG/2 ML VIAL IV SCH (08:52)
[2021-04-08] MEDS: SENNOSIDES 8.8 MG/5 ML UDC PO SCH ×2 (08:52→21:08)
[2021-04-08] MEDS: dexAMETHasone 10 MG in SYRINGE 0 ML IV SCH (08:53)
[2021-04-08] MEDS: ICU ELECTROLYTE REPLACEMENT PROTOCOL SCH ×2 (08:53→18:26)
[2021-04-08] MEDS ORDERED: SODIUM PHOSPHATE 21 MMOL in SODIUM CHLORIDE 0.9% 500 ML IV ONE (09:00)
--- NOTE | 2021-04-08 09:03 | XRay Report ---
XR chest 1V portable CLINICAL HISTORY: resp failure. Follow-up bilateral interstitial and alveolar opacities COMPARISON STUDY: 04/07/2021 TECHNIQUE: 1 view of the chest FINDINGS: Single frontal view of the chest demonstrates the heart to again be enlarged. Tubes and catheters are unchanged. Bilateral interstitial and alveolar opacities are again seen. Additional more confluent a lveolar opacity is present at the left lung base with air bronchograms. There is also evidence for le ft pleural effusion. There is no evidence for vascular congestion. There is no acute osseous patholog y. IMPRESSION: Extensive interstitial and alveolar opacities are again seen bilaterally along with more confluent alveolar opacity with air bronchograms at the left lung base. Left pleural effusion is also present. ACT 112: Negative or not required by law. Electronically signed by: Ronald Antoine M.D. 04/08/2021 9:02 AM
[2021-04-08] MEDS: VANCOMYCIN HCL 1,250 MG in SODIUM CHLORIDE 0.9% 250 ML IV SCH ×2 (10:12→22:06)
[2021-04-08] MEDS: PANTOprazole 40 MG in SYRINGE 0 ML IV SCH (11:15)
[2021-04-08] MEDS ORDERED: POTASSIUM CHLORIDE 20 MEQ/15 ML UDC PO ONE (12:45)
--- NOTE | 2021-04-08 12:59 | Critical Care Progress Note ---
Date of Service April 08, 2021 Assessment & Plan (1) Hypoxia: (2) Pneumonia due to 2019 novel coronavirus: Plan: (1) Acute respiratory failure with hypoxia: (2) Pneumonia due to 2019 novel coronavirus: (3) ARDS (adult respiratory distress syndrome): (4) Transaminitis: Impression: 55-year-old male with COVID-19 viral pneumonia and ARDS. Intubated 03/31/2021. Admitted 03/22/2021 24-hour events: No progress in weaning the ventilator. We attempted a trial of inhaled epoprostenol however this was not effective in improving the patient's oxygenation and was subsequently discontinued. Recommendations: Neurologic: Back on neuromuscular blockade due to ventilator asynchrony, high pressures, and refractory hypoxemia. Continue oral oxycodone and clonazepam with his regimen to try and decrease his sedative IV requirements. Pulmonary: Continue lung protective ventilation strategy and a high PEEP and low FiO2 strategy. Continue Decadron 20 mg x 5 days and 10 mg x 10 days. Given his significant barotrauma with pneumomediastinum, have been trying to avoid additional prone positioning at this point time. Current vent settings AC 34/300/12/1.0 Plateau pressures on the settings were 33. Most recent blood gas 7.32/87/58. P/F ratio 58, stable compared to yesterday with very poor lung compliance. The patient is not an ECMO candidate. Palliative care discussions have been undertaken but the family is not receptive. Day 17 of admission. Day #9 of being intubated. Continue permissive hypercapnia and try and keep pH above 7.1. He is failed inhaled epoprostenol Cardiovascular: Continuing to attempt to keep the patient on the dry side. -1.4 L last 24 hours. Gastrointestinal: Continue trophic tube feeding. Continue pantoprazole 40 mg NGT daily. Renal: Cis atracurium is restarted due to ventilator dyssynchrony Electrolyte replacement protocol ordered. Acid-base status as noted above in pulmonary. Infectious disease: Continues to be febrile. Blood cultures with gram-positive cocci in clusters 1 out of 2, await speciation. May require echocardiogram. Day #2 cefepime and vancomycin. Hematologic: No issues. Hemoglobin remained stable Endocrine: ICU for hyperglycemia management. Lines and tubes: IJ, arterial lne and ETT placed 03/31/21, cancino to gravity, and OGT - continue use of these lines VTE prophylaxis: Lovenox 40 mg SQ daily CODE STATUS: FULL CODE Disposition: Remain in ICU. I spoke with the family including the sister and the daughter. They state they are unwilling or incapable of making a decision regarding addressing CODE STATUS and want him to remain a full code. There is no state of mind to consider withdrawal of efforts. I advised them that the current situation appears to be consistent with a very poor functional prognosis. They request that we continue to maintain all efforts acknowledging that they may not have a positive outcome. I have personally spent 45 minutes of critical care time in the direct management of this patient. This is a life/limb threatening event. This includes time spent evaluating patient, direct bedside care, chart review, placing orders, interpretation of diagnostic studies, discussion with consultants, patient, and family members, as well as other required patient management activities. This time is exclusive of all separately billable procedures, and teaching time and separate from and in addition to any other critical care service time. Admission and Anticipated Discharge Date Admission Date: March 22, 2021 Subjective Patient is intubated sedated and paralyzed. Review of Systems Review of Systems: Unobtainable due to endotracheal tube Physical Exam Physical Exam: Intubated and sedated. Constitutional: WD/WN, vitals as above + mechanically ventilated Neck: trachea midline, no thyromegaly Respiratory: + tachypneic; + abnormal respiratory effort and no respiratory distress Auscultation: + crackles and + wheezes Cardiovascular: RRR, no murmur, no edema Gastrointestinal (Abdomen): normal bowel sounds, soft, nontender, no hepatosplenomegaly Musculoskeletal: Extremities: extremities normal to inspection Skin: no rashes, warm and dry Lymphatic: no cervical lymphadenopathy Results & Data Results & Data ([facility]) Vital Signs (Past 12 Hours) Vital Signs Temp Pulse Resp BP Pulse Ox 04/08/21 09:30 106 H 34 H 85 L 04/08/21 09:00 99 H 33 H 120/74 88 L 04/08/21 08:30 103 H 35 H 92 04/08/21 08:00 101 H 34 H 124/72 93 04/08/21 07:30 97 H 34 H 92 04/08/21 07:00 100 H 31 H 113/70 88 L 04/08/21 03:00 102 H 34 H 114/69 90 04/08/21 02:21 99 H 38 H 89 L 04/08/21 02:00 102 H 34 H 114/70 90 04/08/21 01:00 37.2 C 105 H 34 H 112/70 91 Critical Care Results & Data Vital Signs (Past 12 Hours) Vital Signs Temp Pulse Resp BP Pulse Ox 04/08/21 09:30 106 H 34 H 85 L 04/08/21 09:00 99 H 33 H 120/74 88 L 04/08/21 08:30 103 H 35 H 92 04/08/21 08:00 101 H 34 H 124/72 93 04/08/21 07:30 97 H 34 H 92 04/08/21 07:00 100 H 31 H 113/70 88 L 04/08/21 03:00 102 H 34 H 114/69 90 04/08/21 02:21 99 H 38 H 89 L 04/08/21 02:00 102 H 34 H 114/70 90 04/08/21 01:00 37.2 C 105 H 34 H 112/70 91 Lab & Micro Results (Past 24 Hours) RBC 3.69 M/uL (4.7-6.1) L 04/08/21 WBC 7.48 K/uL (4.8-10.8) 04/08/21 Hgb 10.9 g/dL (14.0-18.0) L 04/08/21 Hct 33.4 % (42-52) L 04/08/21 MCV 90.5 fL (80-100) 04/08/21 MCH 29.5 pg (25-34) 04/08/21 MCHC 32.6 g/dL (32-36) 04/08/21 RDW Standard Deviation 43.0 fL (36.4-46.3) 04/08/21 RDW Coefficient of Variation 13.1 % (11.5-14.5) 04/08/21 Plt Count 171 K/uL (130-400) 04/08/21 MPV 10.2 fL (7.4-10.4) 04/08/21 Neutrophils (%) (Auto) 85.1 % 04/08/21 Lymphocytes (%) (Auto) 7.0 % 04/08/21 Monocytes # (Auto) 0.49 K/uL (0.11-0.59) 04/08/21 Eosinophils # (Auto) 0.03 K/uL (0-0.5) 04/08/21 Immature Granulocyte % (Auto) 0.9 % 04/08/21 Neutrophils # (Auto) 6.37 K/uL (1.4-6.5) 04/08/21 Lymphocytes # (Auto) 0.52 K/uL (1.2-3.4) L 04/08/21 Monocytes # (Auto) 0.49 K/uL (0.11-0.59) 04/08/21 Eosinophils # (Auto) 0.03 K/uL (0-0.5) 04/08/21 Basophils # (Auto) 0.00 K/uL (0-0.2) 04/08/21 Immature Granulocyte # (Auto) 0.07 K/uL (0.00-0.02) H 04/08/21 Na 146 mmol/L (136-145) H 04/08/21 K 3.3 mmol/L (3.5-5.1) L 04/08/21 Cl 109 mmol/L (98-107) H 04/08/21 CO2 36 mmol/L (21-32) H 04/08/21 Anion Gap 1.0 (3-11) L 04/08/21 BUN 27 mg/dl (7-18) H 04/08/21 Creatinine 0.71 mg/dl (0.6-1.4) 04/08/21 Estimated GFR ( Amer) 123.3 ml/min 04/08/21 Estimated GFR (Non-Af Amer) 106.4 ml/min 04/08/21 BUN/Creatinine Ratio 37.8 (10-20) H 04/08/21 Glu 116 mg/dl (70-99) H 04/08/21 Ca 7.0 mg/dl (8.5-10.1) L 04/08/21 Phosphorus Level 1.7 mg/dl (2.5-4.9) L 04/08/21 Mg 1.9 mg/dl (1.8-2.4) 04/08/21 06:46 04/08/21 Calcium Level 7.0 mg/dl (8.5-10.1) L 04/08/21 06:46 04/08/21 Waldo Test NA 04/08/21 04:33 04/08/21 Microbiology 04/07/21 10:25 Aerobic Blood Culture - Preliminary Blood No growth in Aerobic bottle after 24 hours. Anaerobic Blood Culture - Preliminary Gram positive cocci clusters 04/07/21 10:19 Aerobic Blood Culture - Preliminary Blood No growth in Aerobic bottle after 24 hours. Anaerobic Blood Culture - Preliminary No growth in Anaerobic bottle after 24 hours. Diagnostic Findings (Past 24 Hours) Chest X-Ray 04/08/21 07:00 XR chest 1V portable CLINICAL HISTORY: resp failure. Follow-up bilateral interstitial and alveolar opacities COMPARISON STUDY: 04/07/2021 TECHNIQUE: 1 view of the chest FINDINGS: Single frontal view of the chest demonstrates the heart to again be enlarged. Tubes and catheters are unchanged. Bilateral interstitial and alveolar opacities are again seen. Additional more confluent alveolar opacity is present at the left lung base with air bronchograms. There is also evidence for left pleural effusion. There is no evidence for vascular congestion. There is no acute osseous pathology. IMPRESSION: Extensive interstitial and alveolar opacities are again seen bilaterally along with more confluent alveolar opacity with air bronchograms at the left lung base. Left pleural effusion is also present. ACT 112: Negative or not required by law. Electronically signed by: Ronald Antoine M.D. 04/08/2021 9:02 AM I & O Totals 24 Hours 04/07/21 04/08/21 04/09/21 06:59 06:59 06:59 Intake Total 1471.355 / 6844.378 3395.771 / 3193.771 476.283 / 476.283 Output Total 1575 / 1575 4655 / 4655 200 / 200 Balance -103.645 / -103.645 -1461.229 / -1461.229 276.283 / 276.283 Cumulative 03/22/21 09:18 thru 04/08/21 10:50 Intake Total 02451.395 Output Total 15642 Balance -5657.605 RT Ventilator Mngmt (Last Documented) Ventilator Ordered Settings Ventilator Support Mode Assist Control 04/08/21 07:48 Respiratory Rate 34 04/08/21 09:30 Ventilator Tidal Volume 300 04/08/21 07:48 Setting Minute Ventilation 9.7 04/08/21 02:21 Ventilator Positive Pressure 12 04/06/21 19:33 Support Setting Positive End Expiratory 12 04/08/21 07:48 Pressure Fraction of Inspired Oxygen 100 04/08/21 09:00 Peak Inspiratory Flow 34 04/03/21 15:10 Machine Comment SPO2 only 85-86% 04/06/21 11:20 Ventilator - PT Measurements Respiratory Rate 34 Exhaled Tidal Volume 300 Minute Ventilation 9.7 Peak Inspiratory Airway 36 Pressure Plateau Pressure 33.8 Respiratory Cycle Inspiratory: 1:1.5 Expiratory Ratio Inspiratory Phase Time 0.70 End-Tidal CO2 50 Static Lung Compliance 13.76 Dynamic Lung Compliance 12.50 Normal Static Lung Compliance 42.00 Patient Measurements Comment weaned to 80%O2 Coding Level of Care Code Critical Care 1st 30-74 mins Diagnoses Hypoxia R09.02 Pneumonia due to 2019 novel coronavirus U07.1; J12.82 Time Spent (min) 45
[2021-04-08] MEDS: PEPTAMEN INTENSE VHP 1.0 CAL 1,000 ML BAG GT SCH (14:53)
[2021-04-08 17:29] LABS: BUN Creatinine Ratio 31.4 (10-20); Calcium 8.8 mg/dl (8.5-10.1); Creatinine Clr Calc Pharmacy 70.5 ml/min; Est GFR (African American) 85.9 ml/min; Est GFR (Non-African American) 74.1 ml/min
[2021-04-08 18:16] LABS: Magnesium 2.7 mg/dl (1.8-2.4); Phosphorus 4.1 mg/dl (2.5-4.9)
[2021-04-08 18:22] LABS: Potassium 4.7 mmol/L (3.5-5.1)
--- NOTE | 2021-04-08 20:29 | Hospitalist Progress Note ---
Date of Service April 08, 2021 Assessment & Plan (1) Pneumonia due to 2019 novel coronavirus: (2) Hypoxia: (3) Acute respiratory failure with hypoxia: Plan: per Dr. Diop's notes with addendum: (1) Pneumonia due to 2019 novel coronavirus: (2) Acute respiratory failure with hypoxia: Plan: Acute hypoxic respiratory failure COVID-19 Community-acquired pneumonia Not vaccinated against Covid, signs and symptoms since 16 days. Extensive pneumomediastinum --CTA:Cardiomegaly without pulmonary emboli. Extensive bilateral pulmonary opacities compatible with viral pneumonia. Mild reactive mediastinal adenopathy. -Completed empiric Rocephin course weaned off of Pressor s/p intubation 03/31 Patient not a candidate for ECMO as per critical care Patient on PEEP of 15, FiO2 100% Vent management as per ICU team Remains on sedation, on neuromuscular blockade continued on dexamethasone On tube feeds On Lovenox for DVT prophylaxis Fever, gram-positive bacteremia Follow-up blood cultures Started on vancomycin plus cefepime Will order repeat blood cultures, may need echocardiogram JOHNNA unknown baseline, unknown if h/o CKD Creatinine levels normalized stable Hyperkalemia Resolved Monitor BMP Hepatic Steatosis Transaminitis Transaminitis likely secondary to Covid LFTs trended down DVT Px: Lovenox SQ CODE STATUS: Full Code Admission and Anticipated Discharge Date Admission Date: March 22, 2021 Subjective Follow-up for acute hypoxic respiratory failure, COVID-19 pneumonia, etc. Patient remains sedated, on neuromuscular blockade, intubated No signs of respiratory distress, appears comfortable No signs of pain Positive fever No diarrhea noted No other issues noted per provider education specialist of Systems Review of Systems: all noted and negative except for above Physical Exam Physical Exam: General-sedated, intubated, not in distress No accessory muscle use Eyes- anicteric Neck- no JVD Lungs-positive mild crackles anteriorly, no wheezing Heart- normal rate, regular rhythm; no murmurs Abdomen- normal bowel sounds, nondistended, soft, nontender Extremities- no pretibial edema, no calf tenderness Neuro-patient is sedated Skin- warm & dry Results & Data Results & Data ([facility]) Vital Signs (Past 12 Hours) Vital Signs Temp Pulse Resp BP Pulse Ox 04/08/21 20:06 123 H 36 H 92 04/08/21 16:00 115 H 31 H 110/71 90 04/08/21 15:40 113 H 37 H 89 L 04/08/21 15:00 116 H 32 H 118/73 90 04/08/21 14:30 38.2 C H 04/08/21 14:00 116 H 35 H 120/73 89 L 04/08/21 13:00 114 H 34 H 125/72 87 L 04/08/21 12:40 116 H 37 H 88 L 04/08/21 12:00 116 H 35 H 119/70 88 L 04/08/21 11:00 116 H 33 H 125/73 87 L 04/08/21 10:00 110 H 34 H 127/74 86 L 04/08/21 09:30 106 H 34 H 85 L 04/08/21 09:00 99 H 33 H 120/74 88 L 04/08/21 08:55 109 H 37 H 85 L 04/08/21 08:30 103 H 35 H 92 all noted and reviewed including below
[2021-04-08] MEDS ORDERED: VANCOMYCIN TROUGH ONE (21:30)
[2021-04-09] MEDS: CEFEPIME 2,000 MG in SYRINGE 0 ML IV SCH ×3 (01:55→18:12)
[2021-04-09] MEDS: ARTIFICIAL TEARS OP OINT 3.5 GM TUBE OP SCH ×6 (01:55→21:17)
[2021-04-09] MEDS: CISATRACURIUM BESYLATE 40 MG in 0.9 % SODIUM CHLORIDE 80 ML IV SCH ×3 (04:39→23:34)
[2021-04-09 05:05] LABS: iSTAT Arterial Blood Gas HCO3 45 meg/L (19-24); iSTAT Arterial Blood Gas pCO2 93 mmHg (35-46); iSTAT Arterial Blood Gas pH 7.29 (7.35-7.45); iSTAT Arterial Blood Gas pO2 70 mmHg (80-95); iSTAT Carbon Dioxide > 40 mmol/L (24-31); iSTAT FiO2 100 %; iSTAT Site Art Line
[2021-04-09] MEDS: TUBE FEEDING WATER FLUSH OG SCH ×5 (05:09→21:12)
[2021-04-09] MEDS: oxyCODONE HCL SOLN 5 MG/5 ML UDC PO SCH ×3 (05:53→18:45)
[2021-04-09] MEDS: ICU ELECTROLYTE REPLACEMENT PROTOCOL SCH ×2 (08:00→18:12)
[2021-04-09 08:01] LABS: Basophils # (auto) 0.01 K/uL (0-0.2); Basophils % (auto) 0.1 %; Hematocrit (blood only) 34.6 % (42-52); Hemoglobin 10.9 g/dL (14.0-18.0); Immature Granulocytes # (auto) 0.07 K/uL (0.00-0.02); Immature Granulocytes % (auto) 0.9 %; Lymphocytes # (auto) 0.77 K/uL (1.2-3.4); Lymphocytes % (auto) 9.9 %; Mean Corpuscular Hemoglobin 29.6 pg (25-34); Mean Corpuscular Hgb Conc 31.5 g/dL (32-36); Mean Platelet Volume 10.5 fL (7.4-10.4); Monocytes # (auto) 1.03 K/uL (0.11-0.59); Monocytes % (auto) 13.3 %; Neutrophils # (auto) 5.89 K/uL (1.4-6.5); Neutrophils % (auto) 75.8 %; Platelet Count 186 K/uL (130-400); RDW Coefficient of Variation 13.6 % (11.5-14.5); RDW Standard Deviation 46.3 fL (36.4-46.3); Red Blood Count 3.68 M/uL (4.7-6.1); White Blood Count 7.77 K/uL (4.8-10.8)
[2021-04-09] MEDS: fentaNYL citrate 2,500 MCG/250 ML BAG IV SCH ×2 (08:01→15:54)
[2021-04-09] MEDS: clonazePAM 1 MG TAB PO SCH ×2 (08:01→21:16)
[2021-04-09] MEDS: FUROSEMIDE INJ 20 MG/2 ML VIAL IV SCH ×2 (08:01→21:12)
[2021-04-09] MEDS: ENOXAPARIN INJ 40 MG/0.4 ML SYR SQ SCH (08:02)
[2021-04-09] MEDS: dexAMETHasone 10 MG in SYRINGE 0 ML IV SCH (08:03)
[2021-04-09] MEDS: SENNOSIDES 8.8 MG/5 ML UDC PO SCH ×2 (08:03→21:12)
[2021-04-09] MEDS: LACTULOSE SYRUP 20 GM/30 ML UDC PO SCH (08:03)
[2021-04-09] MEDS: PEPTAMEN INTENSE VHP 1.0 CAL 1,000 ML BAG GT SCH (08:04)
[2021-04-09 08:14] LABS: BUN Creatinine Ratio 38.9 (10-20); Calcium 8.2 mg/dl (8.5-10.1); Creatinine Clr Calc Pharmacy 80.6 ml/min; Est GFR (African American) 100.9 ml/min; Est GFR (Non-African American) 87.1 ml/min; Magnesium 2.5 mg/dl (1.8-2.4); Phosphorus 1.7 mg/dl (2.5-4.9); Potassium 4.4 mmol/L (3.5-5.1)
[2021-04-09] MEDS ORDERED: SODIUM PHOSPHATE 3 MMOL/1 ML INFUSION IV STA (08:47)
[2021-04-09] MEDS ORDERED: SODIUM PHOSPHATE 21 MMOL in SODIUM CHLORIDE 0.9% 500 ML IV ONE (09:15)
[2021-04-09] MEDS ORDERED: VANCOMYCIN TROUGH ONE (09:30)
--- NOTE | 2021-04-09 09:48 | Pharmacy Report ---
Pharmacy Vanc AUC Short Note - Date of Service April 09, 2021 - Assessment & Plan Assessment 55 year old M receiving IV Vancomycin and Cefepime for treatment of HAP (superimposed COVID), G+ cocci (clusters) bacteremia. Day # 3 of antimicrobial therapy. * Vancomycin trough was ordered last night, but was not drawn for unclear reason. It was due to be drawn today at 0930, but was actually drawn ~1 hour early. True trough would be slightly lower. * Renal function seems to have worsened today and according to [facility], current regimen of 1250mg IV q12 will result in supratherapeutic levels and incr' toxicity. * Blood cultures growing 2/2 G+ cocci in clusters, which indicates Staph; PCR was negative for MRSA. Patient continued to be febrile. Plan Vancomycin * AUC/TRACY is the preferred PK/PD target for vancomycin * AUC guided dosing is effective and associated with decreased risk of nephrotoxicity compared to traditional trough targets * Trough level was 18.7 mg/dL (04/09 @ 0823) * Decrease Vancomycin to 1000mg IV q12 to target a lower AUC/TRACY of 400-600 mg/L.hr and may be associated with a 12% risk of nephrotoxicity according to [facility] * Trough level ordered for: 04/11/21 @ 0930 to reassess dosing regimen Pharmacy will continue to follow and will adjust dose/frequency as necessary. Thank you.
--- NOTE | 2021-04-09 10:05 | XRay Report ---
XR chest 1V portable CLINICAL HISTORY: f/u TECHNIQUE: Single frontal radiograph of the chest was obtained. Comparison: Comparison is made to chest one view 04/08/2021 FINDINGS: Lines and tubes are stable. The cardiomediastinal silhouette is stable. Diffuse airspace opacity is u nchanged from prior exam. Left pleural effusion is unchanged. IMPRESSION: Diffuse airspace opacities, unchanged. Left pleural effusion is unchanged. ACT 112: Negative or not required by law. Electronically signed by: Tramaine Antoine M.D. 04/09/2021 10:04 AM
[2021-04-09] MEDS: ACETAMINOPHEN 325 MG TAB PO PRN (10:09)
[2021-04-09] MEDS: VANCOMYCIN HCL 1,000 MG in SODIUM CHLORIDE 0.9% 250 ML IV SCH ×2 (10:11→21:16)
--- NOTE | 2021-04-09 11:28 | Hospitalist Progress Note ---
Date of Service April 09, 2021 Assessment & Plan (1) Pneumonia due to 2019 novel coronavirus: (2) Hypoxia: (3) Acute respiratory failure with hypoxia: Plan: per Dr. Diop's notes with addendum: (1) Pneumonia due to 2019 novel coronavirus: (2) Acute respiratory failure with hypoxia: Plan: Acute hypoxic respiratory failure COVID-19 Community-acquired pneumonia Not vaccinated against Covid, signs and symptoms since 16 days. Extensive pneumomediastinum --CTA:Cardiomegaly without pulmonary emboli. Extensive bilateral pulmonary opacities compatible with viral pneumonia. Mild reactive mediastinal adenopathy. -Completed empiric Rocephin course weaned off of Pressor s/p intubation 03/31 Patient not a candidate for ECMO as per critical care remainson FiO2 100% Vent management as per ICU team Remains on sedation, on neuromuscular blockade continued on dexamethasone On tube feeds On Lovenox for DVT prophylaxis Fever, gram-positive cocci bacteremia blood culture: gram positive cocci repeat blood culture: pending Vancomycin plus cefepime day 2 may need echocardiogram to r/o endocarditis JOHNNA unknown baseline, unknown if h/o CKD Creatinine levels normalized stable Hyperkalemia Resolved Monitor BMP Hepatic Steatosis Transaminitis Transaminitis likely secondary to Covid LFTs trended down DVT Px: Lovenox SQ CODE STATUS: Full Code Admission and Anticipated Discharge Date Admission Date: March 22, 2021 Subjective ff up for acute hypoxic respiratory failure, COVID 19 pneumonia, etc seen sedated, intubated, on mech vent not in distress no signs of pain fio2 100% no other symptoms Review of Systems Review of Systems: all noted and negative except for above Physical Exam Physical Exam: General- breathing with no effort or accessory muscle use Eyes- anicteric ET and NG tube in place no issues Neck- no JVD Lungs-mild rhonchi BL Heart- normal rate, regular rhythm; no murmurs Abdomen- normal bowel sounds, nondistended, soft, nontender Extremities- no pretibial edema, no calf tenderness Neuro- sedated Skin- warm & dry Results & Data Results & Data ([facility]) Vital Signs (Past 12 Hours) Vital Signs Pulse Resp BP Pulse Ox 04/09/21 11:18 121 H 33 H 91 04/09/21 08:00 112 H 04/09/21 06:45 113 H 31 H 93 04/09/21 06:00 113 H 30 H 91 04/09/21 05:00 114 H 30 H 119/72 91 04/09/21 04:00 119 H 35 H 114/69 91 04/09/21 03:00 117 H 32 H 91 04/09/21 02:42 118 H 36 H 91 04/09/21 02:00 117 H 34 H 91 04/09/21 01:00 117 H 31 H 91 04/09/21 00:00 117 H 33 H 119/72 91 all noted and reviewed including below
[2021-04-09] MEDS: MIDAZOLAM HCL 125 MG/250 ML BAG IV SCH (11:36)
--- NOTE | 2021-04-09 12:43 | Critical Care Progress Note ---
Date of Service April 09, 2021 Assessment & Plan (1) Hypoxia: (2) Pneumonia due to 2019 novel coronavirus: Plan: (1) Acute respiratory failure with hypoxia: (2) Pneumonia due to 2019 novel coronavirus: (3) ARDS (adult respiratory distress syndrome): (4) Transaminitis: Impression: 55-year-old male with COVID-19 viral pneumonia and ARDS. Intubated 03/31/2021. Admitted 03/22/2021 24-hour events: No progress in weaning the ventilator. Remains on neuromuscular blockade. Whenever it has lightened, he becomes dyssynchronous with the vent Recommendations: Neurologic: Continue neuromuscular blockade due to ventilator asynchrony, high pressures, and refractory hypoxemia. Continue oral oxycodone and clonazepam with his regimen to try and decrease his sedative IV requirements. Pulmonary: Continue lung protective ventilation strategy and a high PEEP and low FiO2 strategy. Continue Decadron 20 mg x 5 days and 10 mg x 10 days. Given his significant barotrauma with pneumomediastinum, have been trying to avoid additional prone positioning at this point time. Current vent settings AC 34/300/15/1.0 Plateau pressures on the settings were 31. Most recent blood gas 7.33/93/70. P/F ratio 70, slightly better compared to yesterday with very poor lung compliance. The patient is not an ECMO candidate. Palliative care discussions have been undertaken but the family is not receptive. Day 18 of admission. Day #10 of being intubated. Continue permissive hypercapnia and try and keep pH above 7.1. He has failed inhaled epoprostenol. He is not a candidate to consider tracheostomy until his FiO2 and PEEP are significantly weaned. I updated the family that tracheostomy was not really therapeutic, would only assist in long-term management the patient. Cardiovascular: Continuing to attempt to keep the patient on the dry side. -1.1 L last 24 hours. Continue Lasix, increase dose Gastrointestinal: Continue trophic tube feeding. Continue pantoprazole 40 mg NGT daily. Renal: Continue diuresis. Increase Lasix to twice daily dosing. Electrolyte replacement protocol ordered. Acid-base status as noted above in pulmonary. Infectious disease: Continues to be febrile. Blood cultures from 04/07 2 out of 2 gram-positive cocci in clusters. Surveillance cultures from today are no growth to date. Day #3 cefepime and vancomycin. Check echocardiogram. May consider discontinuation of cefepime in the next 24 hours depending on clinical course Hematologic: No issues. Hemoglobin remained stable Endocrine: ICU for hyperglycemia management. Lines and tubes: IJ, arterial lne and ETT placed 03/31/21, cancino to gravity, and OGT - continue use of these lines VTE prophylaxis: Lovenox 40 mg SQ daily CODE STATUS: FULL CODE Disposition: Remain in ICU. I spoke with the family including the sister and the daughter. They state they are unwilling or incapable of making a decision regarding addressing CODE STATUS and want him to remain a full code. There is no state of mind to consider withdrawal of efforts. I advised them that the current situation appears to be consistent with a very poor functional prognosis. They request that we continue to maintain all efforts acknowledging that they may not have a positive outcome. I have personally spent 45 minutes of critical care time in the direct management of this patient. This is a life/limb threatening event. This includes time spent evaluating patient, direct bedside care, chart review, placing orders, interpretation of diagnostic studies, discussion with consultants, patient, and family members, as well as other required patient management activities. This time is exclusive of all separately billable procedures, and teaching time and separate from and in addition to any other critical care service time. Admission and Anticipated Discharge Date Admission Date: March 22, 2021 Subjective intubated and sedated. Review of Systems Review of Systems: Unobtainable due to endotracheal tube Physical Exam Physical Exam: Intubated and sedated. Constitutional: WD/WN, vitals as above + mechanically ventilated Neck: trachea midline, no thyromegaly Respiratory: no respiratory distress Auscultation: + crackles Cardiovascular: RRR, no murmur, no edema Gastrointestinal (Abdomen): normal bowel sounds, soft, nontender, no hepatosplenomegaly Musculoskeletal: Extremities: extremities normal to inspection Skin: no rashes, warm and dry Lymphatic: no cervical lymphadenopathy Results & Data Results & Data ([facility]) Vital Signs (Past 12 Hours) Vital Signs Pulse Resp BP Pulse Ox 04/09/21 11:18 121 H 33 H 91 04/09/21 11:00 123 H 34 H 91 04/09/21 10:00 125 H 34 H 87 L 04/09/21 09:00 115 H 34 H 89 L 04/09/21 08:00 113 H 34 H 119/67 92 04/09/21 07:00 110 H 34 H 122/65 92 04/09/21 06:45 113 H 31 H 93 04/09/21 06:00 113 H 30 H 91 04/09/21 05:00 114 H 30 H 119/72 91 04/09/21 04:00 119 H 35 H 114/69 91 04/09/21 03:00 117 H 32 H 91 04/09/21 02:42 118 H 36 H 91 04/09/21 02:00 117 H 34 H 91 04/09/21 01:00 117 H 31 H 91 Critical Care Results & Data Vital Signs (Past 12 Hours) Vital Signs Pulse Resp BP Pulse Ox 04/09/21 11:18 121 H 33 H 91 04/09/21 11:00 123 H 34 H 91 04/09/21 10:00 125 H 34 H 87 L 04/09/21 09:00 115 H 34 H 89 L 04/09/21 08:00 113 H 34 H 119/67 92 04/09/21 07:00 110 H 34 H 122/65 92 04/09/21 06:45 113 H 31 H 93 04/09/21 06:00 113 H 30 H 91 04/09/21 05:00 114 H 30 H 119/72 91 04/09/21 04:00 119 H 35 H 114/69 91 04/09/21 03:00 117 H 32 H 91 04/09/21 02:42 118 H 36 H 91 04/09/21 02:00 117 H 34 H 91 04/09/21 01:00 117 H 31 H 91 Lab & Micro Results (Past 24 Hours) RBC 3.68 M/uL (4.7-6.1) L 04/09/21 WBC 7.77 K/uL (4.8-10.8) 04/09/21 Hgb 10.9 g/dL (14.0-18.0) L 04/09/21 Hct 34.6 % (42-52) L 04/09/21 MCV 94.0 fL (80-100) 04/09/21 MCH 29.6 pg (25-34) 04/09/21 MCHC 31.5 g/dL (32-36) L 04/09/21 RDW Standard Deviation 46.3 fL (36.4-46.3) 04/09/21 RDW Coefficient of Variation 13.6 % (11.5-14.5) 04/09/21 Plt Count 186 K/uL (130-400) 04/09/21 MPV 10.5 fL (7.4-10.4) H 04/09/21 Neutrophils (%) (Auto) 75.8 % 04/09/21 Lymphocytes (%) (Auto) 9.9 % 04/09/21 Monocytes # (Auto) 1.03 K/uL (0.11-0.59) H 04/09/21 Eosinophils # (Auto) 0.00 K/uL (0-0.5) 04/09/21 Immature Granulocyte % (Auto) 0.9 % 04/09/21 Neutrophils # (Auto) 5.89 K/uL (1.4-6.5) 04/09/21 Lymphocytes # (Auto) 0.77 K/uL (1.2-3.4) L 04/09/21 Monocytes # (Auto) 1.03 K/uL (0.11-0.59) H 04/09/21 Eosinophils # (Auto) 0.00 K/uL (0-0.5) 04/09/21 Basophils # (Auto) 0.01 K/uL (0-0.2) 04/09/21 Immature Granulocyte # (Auto) 0.07 K/uL (0.00-0.02) H 04/09/21 Na 144 mmol/L (136-145) 04/09/21 K 4.4 mmol/L (3.5-5.1) 04/09/21 Cl 102 mmol/L (98-107) 04/09/21 CO2 42 mmol/L (21-32) H* 04/09/21 Anion Gap 0 (3-11) L 04/09/21 BUN 38 mg/dl (7-18) H 04/09/21 Creatinine 0.98 mg/dl (0.6-1.4) 04/09/21 Estimated GFR ( Amer) 100.9 ml/min 04/09/21 Estimated GFR (Non-Af Amer) 87.1 ml/min 04/09/21 BUN/Creatinine Ratio 38.9 (10-20) H 04/09/21 Glu 116 mg/dl (70-99) H 04/09/21 Ca 8.2 mg/dl (8.5-10.1) L 04/09/21 Phosphorus Level 1.7 mg/dl (2.5-4.9) L 04/09/21 Mg 2.5 mg/dl (1.8-2.4) H 04/09/21 05:57 04/09/21 Calcium Level 8.2 mg/dl (8.5-10.1) L 04/09/21 05:57 04/09/21 Waldo Test NA 04/09/21 04:37 04/09/21 Microbiology 04/07/21 10:25 Aerobic Blood Culture - Preliminary Blood No growth in Aerobic bottle after 48 hours. Anaerobic Blood Culture - Preliminary Gram positive cocci clusters 04/07/21 Unknown Urine Culture - Final Urine,Indwelling Cath No growth - less than 1,000 colonies/mL. 04/07/21 10:19 Aerobic Blood Culture - Preliminary Blood Gram positive cocci clusters Anaerobic Blood Culture - Preliminary Gram positive cocci clusters Diagnostic Findings (Past 24 Hours) Chest X-Ray 04/09/21 07:00 XR chest 1V portable CLINICAL HISTORY: f/u TECHNIQUE: Single frontal radiograph of the chest was obtained. Comparison: Comparison is made to chest one view 04/08/2021 FINDINGS: Lines and tubes are stable. The cardiomediastinal silhouette is stable. Diffuse airspace opacity is unchanged from prior exam. Left pleural effusion is unchanged. IMPRESSION: Diffuse airspace opacities, unchanged. Left pleural effusion is unchanged. ACT 112: Negative or not required by law. Electronically signed by: Tramaine Antoine M.D. 04/09/2021 10:04 AM I & O Totals 24 Hours 04/08/21 04/09/21 04/10/21 06:59 06:59 06:59 Intake Total 3193.771 / 3193.771 3758.150 / 3758.150 310 / 310 Output Total 4655 / 4655 4945 / 4945 1550 / 1550 Balance -1461.229 / -1461.229 -1186.850 / -1186.850 -1240 / -1240 Cumulative 03/22/21 09:18 thru 04/09/21 11:03 Intake Total 20404.262 Output Total 86923 Balance -8360.738 RT Ventilator Mngmt (Last Documented) Ventilator Ordered Settings Ventilator Support Mode Assist Control 04/09/21 11:18 Respiratory Rate 33 04/09/21 11:18 Ventilator Tidal Volume 300 04/09/21 11:18 Setting Minute Ventilation 9.8 04/09/21 11:18 Ventilator Positive Pressure 12 04/06/21 19:33 Support Setting Positive End Expiratory 14 04/09/21 11:18 Pressure Fraction of Inspired Oxygen 100 04/09/21 11:18 Peak Inspiratory Flow 34 04/03/21 15:10 Machine Comment peep changed back to 14 04/08/21 20:06 Ventilator - PT Measurements Respiratory Rate 33 Exhaled Tidal Volume 300 Minute Ventilation 9.8 Peak Inspiratory Airway 37 Pressure Plateau Pressure 31 Respiratory Cycle Inspiratory: 1:1.5 Expiratory Ratio Inspiratory Phase Time 0.7 End-Tidal CO2 61 Static Lung Compliance 17.65 Dynamic Lung Compliance 13.04 Normal Static Lung Compliance 43.00 Patient Measurements Comment weaned to 80%O2 Coding Level of Care Code Critical Care 1st 30-74 mins Diagnoses Hypoxia R09.02 Pneumonia due to 2019 novel coronavirus U07.1; J12.82 Time Spent (min) 45
[2021-04-09] MEDS: PANTOprazole 40 MG in SYRINGE 0 ML IV SCH (12:49)
[2021-04-09] MEDS: NOREPINEPHRINE/D5W 8 MG/508 ML BAG IV SCH (12:50)
[2021-04-09 13:30] LABS: iSTAT Arterial Blood Gas HCO3 48 meg/L (19-24); iSTAT Arterial Blood Gas pCO2 105 mmHg (35-46); iSTAT Arterial Blood Gas pH 7.27 (7.35-7.45); iSTAT Arterial Blood Gas pO2 81 mmHg (80-95); iSTAT Carbon Dioxide > 50 mmol/L (24-31); iSTAT FiO2 100 %; iSTAT Site Art Line
[2021-04-10] MEDS: fentaNYL citrate 2,500 MCG/250 ML BAG IV SCH ×3 (00:04→21:24)
[2021-04-10] MEDS: TUBE FEEDING WATER FLUSH OG SCH ×6 (00:09→21:24)
[2021-04-10] MEDS: oxyCODONE HCL SOLN 5 MG/5 ML UDC PO SCH ×5 (00:09→19:00)
[2021-04-10] MEDS: ARTIFICIAL TEARS OP OINT 3.5 GM TUBE OP SCH ×5 (01:40→17:42)
[2021-04-10] MEDS: CEFEPIME 2,000 MG in SYRINGE 0 ML IV SCH ×3 (01:40→17:42)
[2021-04-10 04:15] LABS: iSTAT Arterial Blood Gas HCO3 53 meg/L (19-24); iSTAT Arterial Blood Gas pCO2 98 mmHg (35-46); iSTAT Arterial Blood Gas pH 7.34 (7.35-7.45); iSTAT Arterial Blood Gas pO2 65 mmHg (80-95); iSTAT Carbon Dioxide > 50 mmol/L (24-31); iSTAT FiO2 90 %; iSTAT Site Art Line
[2021-04-10] MEDS: CISATRACURIUM BESYLATE 40 MG in 0.9 % SODIUM CHLORIDE 80 ML IV SCH ×3 (05:09→21:24)
[2021-04-10 07:59] LABS: Basophils # (auto) 0.01 K/uL (0-0.2); Basophils % (auto) 0.2 %; Eosinophils # (auto) 0.12 K/uL (0-0.5); Eosinophils % (auto) 1.8 %; Hematocrit (blood only) 34.7 % (42-52); Hemoglobin 10.8 g/dL (14.0-18.0); Immature Granulocytes # (auto) 0.04 K/uL (0.00-0.02); Immature Granulocytes % (auto) 0.6 %; Lymphocytes # (auto) 0.91 K/uL (1.2-3.4); Lymphocytes % (auto) 13.9 %; Mean Corpuscular Hemoglobin 29.6 pg (25-34); Mean Corpuscular Hgb Conc 31.1 g/dL (32-36); Mean Corpuscular Volume 95.1 fL (80-100); Mean Platelet Volume 10.1 fL (7.4-10.4); Monocytes # (auto) 1.22 K/uL (0.11-0.59); Monocytes % (auto) 18.6 %; Neutrophils # (auto) 4.26 K/uL (1.4-6.5); Neutrophils % (auto) 64.9 %; Platelet Count 159 K/uL (130-400); RDW Coefficient of Variation 13.7 % (11.5-14.5); RDW Standard Deviation 47.2 fL (36.4-46.3); Red Blood Count 3.65 M/uL (4.7-6.1); White Blood Count 6.56 K/uL (4.8-10.8)
--- NOTE | 2021-04-10 08:15 | XRay Report ---
XR chest 1V portable CLINICAL HISTORY: resp failure TECHNIQUE: Single frontal radiograph of the chest was obtained. Comparison: Comparison is made to chest one view 04/09/2021 FINDINGS: Lines and tubes are stable. The cardiomediastinal silhouette is obscured. Multifocal airspace opaciti es are seen. Left pleural effusion is unchanged. IMPRESSION: Stable multifocal airspace opacities and left pleural effusion. ACT 112: Negative or not required by law. Electronically signed by: Tramaine Antoine M.D. 04/10/2021 8:14 AM
[2021-04-10] MEDS: MIDAZOLAM HCL 125 MG/250 ML BAG IV SCH ×3 (08:51→17:43)
[2021-04-10] MEDS: FUROSEMIDE INJ 20 MG/2 ML VIAL IV SCH ×2 (08:53→21:25)
[2021-04-10] MEDS: clonazePAM 1 MG TAB PO SCH ×2 (08:53→21:23)
[2021-04-10] MEDS: ENOXAPARIN INJ 40 MG/0.4 ML SYR SQ SCH (08:53)
[2021-04-10] MEDS: LACTULOSE SYRUP 20 GM/30 ML UDC PO SCH (08:54)
[2021-04-10] MEDS: SENNOSIDES 8.8 MG/5 ML UDC PO SCH ×2 (08:54→21:25)
[2021-04-10] MEDS: VANCOMYCIN HCL 1,000 MG in SODIUM CHLORIDE 0.9% 250 ML IV SCH (09:00)
--- NOTE | 2021-04-10 09:19 | XCELERA ---
[id number]
[2021-04-10 09:34] LABS: Calcium 8.3 mg/dl (8.5-10.1); Creatinine Clr Calc Pharmacy 83.1 ml/min; Est GFR (African American) 104.8 ml/min; Est GFR (Non-African American) 90.4 ml/min; Magnesium 2.3 mg/dl (1.8-2.4); Phosphorus 1.8 mg/dl (2.5-4.9)
[2021-04-10 09:35] LABS: Potassium 3.6 mmol/L (3.5-5.1)
[2021-04-10] MEDS: ICU ELECTROLYTE REPLACEMENT PROTOCOL SCH ×2 (09:38→18:35)
[2021-04-10] MEDS ORDERED: SODIUM PHOSPHATE 3 MMOL/1 ML 5 ML VIAL IV STA (09:45)
[2021-04-10] MEDS ORDERED: SODIUM PHOSPHATE 21 MMOL in SODIUM CHLORIDE 0.9% 500 ML IV ONE (10:00)
[2021-04-10] MEDS: POTASSIUM CHLORIDE 20 MEQ/15 ML UDC PO SCH ×2 (10:43→14:12)
[2021-04-10] MEDS: PANTOprazole 40 MG in SYRINGE 0 ML IV SCH (10:50)
--- NOTE | 2021-04-10 11:05 | Critical Care Progress Note ---
Date of Service April 10, 2021 Assessment & Plan (1) Hypoxia: (2) Pneumonia due to 2019 novel coronavirus: Plan: (1) Acute respiratory failure with hypoxia: (2) Pneumonia due to 2019 novel coronavirus: (3) ARDS (adult respiratory distress syndrome): (4) Transaminitis: Impression: 55-year-old male with COVID-19 viral pneumonia and ARDS. Intubated 03/31/2021. Admitted 03/22/2021 24-hour events: No progress in weaning the ventilator. Remains on neuromuscular blockade- required re-bolus and increase in drip for TOF 4/4 and coughing with ventilator Recommendations: Neurologic: Continue neuromuscular blockade due to ventilator asynchrony, high pressures, and refractory hypoxemia. Continue oral oxycodone and clonazepam with his regimen to try and decrease his sedative IV requirements. Pulmonary: Continue lung protective ventilation strategy and a high PEEP and low FiO2 strategy. Continue Decadron 20 mg x 5 days and 10 mg x 10 days. Given his significant barotrauma with pneumomediastinum, have been trying to avoid additional prone positioning at this point time. Current vent settings AC 34/300/14/100 Plateau pressures on the settings were 31. Most recent blood gas 7.34/98/65. P/F ratio <100, very poor lung compliance and dsaturation with turning. The patient is not an ECMO candidate. Palliative care discussions have been undertaken but the family is still wanting to continue full support. Day 19 of admission. Day #11 of being intubated. Continue permissive hypercapnia and try and keep pH above 7.1. He has failed inhaled epoprostenol. He is not a candidate to consider tracheostomy until his FiO2 and PEEP are significantly weaned, and he is not a candidate for sedation vacation or SBT. Cardiovascular: Continuing to attempt to keep the patient on the dry side.. Continue Lasix Gastrointestinal: Continue trophic tube feeding. Continue pantoprazole 40 mg NGT daily. Renal: Continue diuresis. remains with Lasix to twice daily dosing. Electrolyte replacement protocol ordered. Acid-base status as noted above in pulmonary. Infectious disease: Continues to be febrile. Blood cultures from 04/07 2 out of 2 gram-positive cocci in clusters. Surveillance cultures from 04/09 are no growth to date. Day #4 cefepime and vancomycin. Will follow with biomarkers tomorrow and may be able to de-escelate if applicable. Hematologic: No issues. Hemoglobin remained stable Endocrine: ICU for hyperglycemia management. Lines and tubes: IJ, arterial lne and ETT placed 03/31/21,- Replaced 04/10/21- continue use of these lines cancino to gravity, and OGT - continue use of these lines VTE prophylaxis: Lovenox 40 mg SQ daily CODE STATUS: FULL CODE Disposition: Remain in ICU. I spoke with the family including the sister and the daughter. They state they are unwilling or incapable of making a decision regarding addressing CODE STATUS and want him to remain a full code. There is no state of mind to consider withdrawal of efforts. I advised them that the current situation appears to be consistent with a very poor functional prognosis. They request that we continue to maintain all efforts acknowledging that they may not have a positive outcome. I have personally spent 70 minutes of critical care time in the direct management of this patient. This is a life/limb threatening event. This includes time spent evaluating patient, direct bedside care, chart review, placing orders, interpretation of diagnostic studies, discussion with consultants, patient, and family members, as well as other required patient management activities. This time is exclusive of all separately billable procedures, and teaching time and separate from and in addition to any other critical care service time. Admission and Anticipated Discharge Date Admission Date: March 22, 2021 Subjective Patient discussed on multidisciplinary rounds and rounded on in the COVID ICU. Patient is HD#19 and ICU day intubated #10, he continues to require high levels of oxygen support to maintain saturations. Patient with CONS from CVL and peripheral blood stick in the setting of steroid immunosupression and severe COVID ARDS, he is being treated with Cefepime and Vancomycin and his repeat blood cultures from 04/09 have NGTD. Patient remains severely ill with high mortality. We have not made any ground in regards to decreasing his ventilation requirements. Will change out CVL and [place] today. No other acute changes. Had very long discussion with the family- sister (Alan) and daughter (Cassi)- in regards to his current illness, decrease in response to therapy on the ventilator and his low likely alex of survival and if he would survive - he would likely require months of rehab and nutritional support to get back to a functional state if he were to survive. We did discuss options of if he were to arrest either pulmonary or cardiac that getting him back to a survival status without any damage or further injury to his organs would be unlikely. For now they still want him to be full code but would possibly like to see him. They did ask that if he were to come off the Ventilator now, would he . This was answered with a Yes as his lungs are severely damaged right now. We discussed palliative care with comfort extubation. They are not at this time ready for this to occur. Will discuss options of possible visitation with administration and as he is also a prisoner, they would need further clearance. All questions answered. Review of Systems Review of Systems: Unable to perform secondary to intubation and sedation Physical Exam Physical Exam: PHYSICAL EXAM: N: CAM ICU unable to test, Sedated and pharmacological paralyzed for mechanical ventilation compliance- TOF 4/4- re-bolused with Cisatracurium Neuro: Sedated paralyzed, Pupils equal and sluggish bilaterally Chest: equal rise and fall of the chest, no accessory muscle use, no heaves or thrills, scattered rhonchi bilaterally throughout to auscultation, mechanically ventilated Cardiac: Regular rate and rhythm, telemetry reviewed, skin warm dry, cap refill <3 seconds, peripheral pulses +2 no JVD, no murmur, GI: NABS x 4 quadrants, soft, nontender to palpation, no rebound, guarding or tenderness : Cancino to gravity draining geeta urine Extremities: Normal inspection, no peripheral edema or erythema, calfs nontender to palpation, subq to upper chest is resolved Psych: unable to assess Results & Data Results & Data ([facility]) Vital Signs (Past 12 Hours) Vital Signs Pulse Resp BP Pulse Ox 04/10/21 09:30 76 34 H 90 04/10/21 09:00 72 34 H 86 L 04/10/21 08:30 93 H 34 H 91 04/10/21 08:00 75 34 H 115/62 86 L 04/10/21 07:50 90 33 H 90 04/10/21 07:30 96 H 34 H 89 L 04/10/21 07:00 98 H 34 H 115/67 89 L 04/10/21 06:30 95 H 34 H 89 L 04/10/21 06:00 89 34 H 88 L 04/10/21 05:00 89 34 H 87 L 04/10/21 04:00 91 H 34 H 88 L 04/10/21 03:00 89 34 H 87 L 04/10/21 02:00 89 34 H 04/10/21 01:00 96 H 34 H 04/10/21 00:00 90 34 H 93 Laboratory Results Abnormal lab results 04/09/21 04/10/21 04/10/21 Range/Units 20:13 04:02 07:30 RBC (4.7-6.1) M/uL Hgb (14.0-18.0) g/dL Hct (42-52) % MCHC (32-36) g/dL RDW Std Deviation (36.4-46.3) fL Lymph # (Auto) (1.2-3.4) K/uL [place] # (Auto) (0.11-0.59) K/uL Immature Gran # (Auto) (0.00-0.02) K/uL POC pH 7.34 L (7.35-7.45) POC pCO2 98 H (35-46) mmHg POC pO2 65 L (80-95) mmHg POC HCO3 53 H (19-24) rowdy/L POC Total CO2 > 50 H* (24-31) mmol/L POC Base Excess 28.0 H (-9-1.8) rowdy/L POC ABG O2 Sat 89.0 L (90-95) % Chloride 97 L (98-107) mmol/L Carbon Dioxide 45 H* (21-32) mmol/L Anion Gap 1.0 L (3-11) BUN 43 H (7-18) mg/dl BUN/Creatinine Ratio 45.0 H (10-20) Glucose 117 H (70-99) mg/dl POC Glucose 126 H (70-99) mg/dl Calcium 8.3 L (8.5-10.1) mg/dl Phosphorus 1.8 L (2.5-4.9) mg/dl 04/10/21 04/10/21 04/10/21 Range/Units 07:30 12:00 16:32 RBC 3.65 L (4.7-6.1) M/uL Hgb 10.8 L (14.0-18.0) g/dL Hct 34.7 L (42-52) % MCHC 31.1 L (32-36) g/dL RDW Std Deviation 47.2 H (36.4-46.3) fL Lymph # (Auto) 0.91 L (1.2-3.4) K/uL [place] # (Auto) 1.22 H (0.11-0.59) K/uL Immature Gran # (Auto) 0.04 H (0.00-0.02) K/uL POC pH (7.35-7.45) POC pCO2 (35-46) mmHg POC pO2 (80-95) mmHg POC HCO3 (19-24) rowdy/L POC Total CO2 (24-31) mmol/L POC Base Excess (-9-1.8) rowdy/L POC ABG O2 Sat (90-95) % Chloride (98-107) mmol/L Carbon Dioxide (21-32) mmol/L Anion Gap (3-11) BUN (7-18) mg/dl BUN/Creatinine Ratio (10-20) Glucose (70-99) mg/dl POC Glucose 177 H 183 H (70-99) mg/dl Calcium (8.5-10.1) mg/dl Phosphorus (2.5-4.9) mg/dl Diagnostic Findings XR chest 1V portable CLINICAL HISTORY: line placement TECHNIQUE: Single frontal radiograph of the chest was obtained. Comparison: Comparison is made to chest one view 04/10/2021 FINDINGS: Interval placement of left IJ catheter with the tip in the cavoatrial junction. Remaining lines and tubes are stable. Cardiomegaly is noted. Multifocal airspace opacities are seen. Left pleural effusion is seen. IMPRESSION: Satisfactory position of left IJ catheter. Stable bilateral airspace opacities and left effusion. ACT 112: Negative or not required by law. Coding Level of Care Code Critical Care 1st 30-74 mins Diagnoses Hypoxia R09.02 Pneumonia due to 2019 novel coronavirus U07.1; J12.82
[2021-04-10] MEDS: ACETAMINOPHEN 325 MG TAB PO PRN ×2 (11:29→17:41)
[2021-04-10] MEDS ORDERED: METHYLNALTREXONE BROMIDE 12 MG/0.6 ML VIAL SQ ONE (12:00)
[2021-04-10] MEDS: NOREPINEPHRINE/D5W 8 MG/508 ML BAG IV SCH (14:12)
[2021-04-10] MEDS ORDERED: CISATRACURIUM BESYLATE IV SOLN 2 MG/ML 10 ML VIAL IV STA (14:19)
--- NOTE | 2021-04-10 16:26 | Procedure Note ---
Procedure Note Date of Service April 10, 2021 Note INTERNAL JUGULAR CENTRAL LINE PROCEDURE NOTE: Ultrasound guided catheter insertion to central vein Procedure: Internal Jugular Central Line Placement- Left IJ Attending: Dr. ARITA APC: Mark Perkins ([facility]) Indication: Central Drug Administration, Poor Venous Access, Multiple Lab Draws Necessary, etc. Anesthesia: X Lidocaine 1% Informed Consent was obtained by Ne (BARBRA) as delegated by Dr. Arita via phone consent with Daughter Cassi and Sister Nubia. It was signed and witnesses and placed on the chart prior to procedure. Indication, risks, and benefits were explained at length. A time-out was completed verifying correct patient, procedure, site, positioning, and implants(s) or special equipment if applicable. Patients left Neck was cleansed and draped in the typical sterile fashion using Chloraprep. The Internal Jugular Vein and Carotid Artery were identified using ultrasound. The superficial tissue was anesthetized using 3 mL of 1% lidocaine without epinephrine under direct visualization with the ultrasound. After adequate anesthetization was achieved, the Internal Jugular vein was cannulated under direct ultrasound guidance using an introducer needle on a syringe. Good venous blood return was maintained prior to removal of syringe from introducer needle. Using Seldinger Technique, a guide wire was advanced through the introducer needle without resistance. The introducer needle was removed and ultrasound imaging was viewed of the guide wire within the Internal Jugular Vein. A small incision was made in penetrating fashion at the guide wire insertion site utilizing an 11 blade scalpel. The dilator was advanced to the vessel without resistance. The dilator was exchanged for the triple lumen catheter which was advanced into the vessel without resistance. The guide wire was removed intact from the catheter without issue. Claves were placed on each catheter tip with confirmation of good blood flow from each lumen. Each port was easily flushed with sterile saline. The catheter was placed at 20 cm and sutured in place. Bio-Patch was applied to the catheter and a sterile Tegaderm dressing was applied over the catheter with careful attention to sterility. Patient tolerated procedure well. No immediate complications were met. Post procedure x-ray was completed, placement was appropriate and no pneumothorax was noted. Images obtained were not saved for permanent record secondary to software and type of machine used Procedural Ultrasound Guidance: Procedure Date: Indication: Multiple infusions, vasoactive medication need, lab samples Attending: Dr. Arita Artery AND Vein visualized: Yes Compressible Vein: Yes Guidewire or Short Catheter seen in vein prior to dilation: Yes Secured at 20cm with suture Coding
--- NOTE | 2021-04-10 16:42 | XRay Report ---
XR chest 1V portable CLINICAL HISTORY: line placement TECHNIQUE: Single frontal radiograph of the chest was obtained. Comparison: Comparison is made to chest one view 04/10/2021 FINDINGS: Interval placement of left IJ catheter with the tip in the cavoatrial junction. Remaining lines and t ubes are stable. Cardiomegaly is noted. Multifocal airspace opacities are seen. Left pleural effusion is seen. IMPRESSION: Satisfactory position of left IJ catheter. Stable bilateral airspace opacities and left effusion. ACT 112: Negative or not required by law. Electronically signed by: Tramaine Antoine M.D. 04/10/2021 4:40 PM
--- NOTE | 2021-04-10 17:13 | Hospitalist Progress Note ---
Date of Service April 10, 2021 Assessment & Plan (1) Pneumonia due to 2019 novel coronavirus: (2) Hypoxia: (3) Acute respiratory failure with hypoxia: Plan: per Dr. Diop's notes with addendum: (1) Pneumonia due to 2019 novel coronavirus: (2) Acute respiratory failure with hypoxia: Plan: Acute hypoxic respiratory failure COVID-19 Community-acquired pneumonia Not vaccinated against Covid, signs and symptoms since 16 days. Extensive pneumomediastinum --CTA:Cardiomegaly without pulmonary emboli. Extensive bilateral pulmonary opacities compatible with viral pneumonia. Mild reactive mediastinal adenopathy. -Completed empiric Rocephin course weaned off of Pressor s/p intubation 03/31 Patient not a candidate for ECMO as per critical care remainson FiO2 100% Vent management as per ICU team Remains on sedation, on neuromuscular blockade Completed dexamethasone On tube feeds On Lovenox for DVT prophylaxis Fever, gram-positive cocci bacteremia blood culture: Staph lugdunensis repeat blood culture: Negative so far Vancomycin plus cefepime day 3 TTE: No signs of vegetation noted JOHNNA unknown baseline, unknown if h/o CKD Creatinine levels normalized stable Hyperkalemia Resolved Monitor BMP Hepatic Steatosis Transaminitis Transaminitis likely secondary to Covid LFTs trended down DVT Px: Lovenox SQ CODE STATUS: Full Code Admission and Anticipated Discharge Date Admission Date: March 22, 2021 Subjective Follow-up for acute hypoxic respiratory failure, etc. Seen sedated, intubated, not in distress No signs of respiratory distress, pain Arterial line being replaced No other issues per RN Physical Exam Physical Exam: General-sedated intubated, accessory muscle use or effort Eyes- anicteric Neck- no JVD Lungs-mild rhonchi bilaterally, no wheezing Heart- normal rate, regular rhythm; no murmurs Abdomen- normal bowel sounds, nondistended, soft, nontender Extremities- no pretibial edema, no calf tenderness Neuro-sedated Skin- warm & dry Results & Data Results & Data ([facility]) Vital Signs (Past 12 Hours) Vital Signs Pulse Resp BP Pulse Ox 04/10/21 14:05 122 H 34 H 88 L 04/10/21 11:50 133 H 34 H 84 L 04/10/21 09:30 76 34 H 90 04/10/21 09:00 72 34 H 86 L 04/10/21 08:30 93 H 34 H 91 04/10/21 08:00 75 34 H 115/62 86 L 04/10/21 07:50 90 33 H 90 04/10/21 07:30 96 H 34 H 89 L 04/10/21 07:00 98 H 34 H 115/67 89 L 04/10/21 06:30 95 H 34 H 89 L 04/10/21 06:00 89 34 H 88 L all noted and reviewed including below
[2021-04-10] MEDS: PEPTAMEN INTENSE VHP 1.0 CAL 1,000 ML BAG GT SCH (17:40)
--- NOTE | 2021-04-10 18:58 | Procedure Note ---
Procedure Note Date of Service April 10, 2021 Note ARTERIAL LINE PROCEDURE NOTE: Placement of catheter into radial artery using ultrasound guidance Procedure: Arterial Line Placement Attending: Dr. Arita APC: Mark Perkins ([facility]-) Indication: Monitoring on Pressors Anesthesia: [x]None Patient receiving sedation and pain medication via infusion [X}Consent was obtained via phone from sister Nubia and Cassi khan as delegated by Dr. Arita. The consent was signed, witnessed real time, and placed on the chart prior to procedure. Indication, risks, and benefits were explained at length. A time-out was completed verifying correct patient, procedure, site, position ing, and implant(s) or special equipment if applicable. Allens test was performed to ensure adequate perfusion. Patients left wrist was prepped and draped in the usual sterile fashion. Ultrasound guidance was used to cast shell grinder the artery and assist in needle placement. A 20g Arrow arterial line was introduced into the Left Radia artery. Catheter was threaded, and the needle was removed with appropriate blood return. Good waveform was observed. The patient tolerated the procedure well. Images were not saved to medical record secondary to software and machine used Blood Loss: Minimal Complications: None Procedural Ultrasound Guidance: Placement of catheter into artery Procedure Date: 2020 Indication: Hemodynamic monitoring, frequent blood draws, vasoactive medicaiton Attending: Dr. Arita Artery Identified: YES Complications: NONE Patient tolerated procedure: WELL Attempts: 2 Coding
[2021-04-11] MEDS ORDERED: oxyCODONE HCL IR 5 MG TAB (IMMEDIATE RELEASE) NG ONE (00:30)
[2021-04-11] MEDS: TUBE FEEDING WATER FLUSH OG SCH ×6 (01:00→20:10)
[2021-04-11] MEDS: VANCOMYCIN HCL 1,000 MG in SODIUM CHLORIDE 0.9% 250 ML IV SCH ×3 (01:12→21:24)
[2021-04-11] MEDS: ARTIFICIAL TEARS OP OINT 3.5 GM TUBE OP SCH ×7 (01:13→21:24)
[2021-04-11] MEDS: MIDAZOLAM HCL 125 MG/250 ML BAG IV SCH ×2 (01:21→17:24)
[2021-04-11] MEDS: CISATRACURIUM BESYLATE 40 MG in 0.9 % SODIUM CHLORIDE 80 ML IV SCH ×4 (01:22→17:27)
[2021-04-11] MEDS: CEFEPIME 2,000 MG in SYRINGE 0 ML IV SCH ×2 (04:20→11:04)
[2021-04-11 04:21] LABS: iSTAT Arterial Blood Gas HCO3 53 meg/L (19-24); iSTAT Arterial Blood Gas pCO2 112 mmHg (35-46); iSTAT Arterial Blood Gas pH 7.28 (7.35-7.45); iSTAT Arterial Blood Gas pO2 78 mmHg (80-95); iSTAT Carbon Dioxide > 50 mmol/L (24-31); iSTAT FiO2 100 %; iSTAT Site Art Line
[2021-04-11] MEDS: fentaNYL citrate 2,500 MCG/250 ML BAG IV SCH ×2 (04:31→12:54)
[2021-04-11] MEDS: oxyCODONE HCL IR 30 MG TAB (IMMEDIATE RELEASE) PO SCH ×3 (06:06→18:24)
[2021-04-11 06:16] LABS: Basophils # (auto) 0.01 K/uL (0-0.2); Basophils % (auto) 0.1 %; Eosinophils # (auto) 0.32 K/uL (0-0.5); Eosinophils % (auto) 4.2 %; Hematocrit (blood only) 36.3 % (42-52); Hemoglobin 11.5 g/dL (14.0-18.0); Immature Granulocytes # (auto) 0.05 K/uL (0.00-0.02); Immature Granulocytes % (auto) 0.7 %; Lymphocytes # (auto) 1.42 K/uL (1.2-3.4); Lymphocytes % (auto) 18.7 %; Mean Corpuscular Hemoglobin 30.5 pg (25-34); Mean Corpuscular Hgb Conc 31.7 g/dL (32-36); Mean Corpuscular Volume 96.3 fL (80-100); Mean Platelet Volume 10.2 fL (7.4-10.4); Monocytes # (auto) 0.23 K/uL (0.11-0.59); Neutrophils # (auto) 5.57 K/uL (1.4-6.5); Neutrophils % (auto) 73.3 %; Platelet Count 127 K/uL (130-400); RDW Coefficient of Variation 13.6 % (11.5-14.5); RDW Standard Deviation 47.3 fL (36.4-46.3); Red Blood Count 3.77 M/uL (4.7-6.1)
[2021-04-11 06:45] LABS: Potassium 3.9 mmol/L (3.5-5.1)
[2021-04-11 06:52] LABS: BUN Creatinine Ratio 46.4 (10-20); C Reactive Protein 7.3 mg/dl (0-0.29); Calcium 8.7 mg/dl (8.5-10.1); Creatinine Clr Calc Pharmacy 79.8 ml/min; Est GFR (African American) 99.7 ml/min; Magnesium 2.4 mg/dl (1.8-2.4); Phosphorus 2.9 mg/dl (2.5-4.9)
[2021-04-11] MEDS: ICU ELECTROLYTE REPLACEMENT PROTOCOL SCH ×2 (07:55→17:25)
[2021-04-11] MEDS: LACTULOSE SYRUP 20 GM/30 ML UDC PO SCH (08:35)
[2021-04-11] MEDS: ENOXAPARIN INJ 40 MG/0.4 ML SYR SQ SCH (08:35)
[2021-04-11] MEDS: SENNOSIDES 8.8 MG/5 ML UDC PO SCH ×2 (08:36→20:10)
[2021-04-11] MEDS: clonazePAM 1 MG TAB PO SCH ×2 (08:38→20:09)
[2021-04-11] MEDS: FUROSEMIDE INJ 20 MG/2 ML VIAL IV SCH ×2 (08:38→20:10)
[2021-04-11] MEDS: ACETAMINOPHEN 325 MG TAB PO PRN ×2 (08:38→18:25)
--- NOTE | 2021-04-11 09:20 | XRay Report ---
XR chest 1V portable CLINICAL HISTORY: Hypoxia TECHNIQUE: Single frontal radiograph of the chest was obtained. Comparison: Comparison is made to chest one view 04/10/2021 FINDINGS: Lines and tubes are stable. The cardiomediastinal silhouette is normal. Multifocal airspace opacities are seen. No evidence of pleural effusion or pneumothorax. IMPRESSION: Multifocal airspace opacities are unchanged from prior exam. ACT 112: Negative or not required by law. Electronically signed by: Tramaine Antoine M.D. 04/11/2021 9:18 AM
[2021-04-11] MEDS ORDERED: VANCOMYCIN TROUGH ONE (09:30)
[2021-04-11] MEDS ORDERED: CISATRACURIUM BESYLATE IV SOLN 2 MG/ML 10 ML VIAL IV STA (09:56)
[2021-04-11] MEDS: POTASSIUM CHLORIDE 20 MEQ/15 ML UDC PO SCH ×2 (11:04→14:44)
[2021-04-11] MEDS: PANTOprazole 40 MG in SYRINGE 0 ML IV SCH (11:06)
--- NOTE | 2021-04-11 11:09 | Pharmacy Report ---
Pharmacy Vanc AUC Short Note - Date of Service April 11, 2021 - Assessment & Plan Assessment 55 year old M receiving vancomycin for treatment of bacteremia. Pertinent microbiologic data includes: blood culture growing staph lugdunensis and CoNS. Plan for duration of 14 days. Day # 714 of antimicrobial therapy. Plan Vancomycin * AUC/TRACY is the preferred PK/PD target for vancomycin * AUC guided dosing is effective and associated with decreased risk of nephr otoxicity compared to traditional trough targets * Trough level of 19 mcg/mL is predicted to achieve target AUC/TRACY of 400-600 mg/L.hr and may be associated with a 13 % risk of nephrotoxicity * Continue dose of 1000 mg IV every 12 hours * Trough or random level ordered for: 04/13/21 @5418 Pharmacy will continue to follow and will adjust dose/frequency as necessary. Thank you.
[2021-04-11 11:22] LABS: iSTAT Arterial Blood Gas HCO3 53 meg/L (19-24); iSTAT Arterial Blood Gas pCO2 113 mmHg (35-46); iSTAT Arterial Blood Gas pH 7.28 (7.35-7.45); iSTAT Arterial Blood Gas pO2 64 mmHg (80-95); iSTAT Carbon Dioxide > 50 mmol/L (24-31); iSTAT FiO2 90 %; iSTAT Site Art Line
--- NOTE | 2021-04-11 12:06 | Critical Care Progress Note ---
Date of Service April 11, 2021 Assessment & Plan (1) Hypoxia: (2) Pneumonia due to 2019 novel coronavirus: Plan: (1) Acute respiratory failure with hypoxia: (2) Pneumonia due to 2019 novel coronavirus: (3) ARDS (adult respiratory distress syndrome): (4) Transaminitis: Impression: 55-year-old male with COVID-19 viral pneumonia and ARDS. Intubated 03/31/2021. Admitted 03/22/2021 24-hour events: Worsening of his hypercarbia and Pplt in the absence of PTX or ETT occlusion. Remains on neuromuscular blockade- required re-bolus and increase in drip for TOF 4/4. Will need to remain fully pharmacologically paralyzed Recommendations: Neurologic: Continue neuromuscular blockade due to ventilator asynchrony, high pressures, and refractory hypoxemia/hypercarbia. Continue oral oxycodone and clonazepam with his regimen to try and decrease his sedative IV requirements. Pulmonary: Continue lung protective ventilation strategy and a high PEEP and low FiO2 strategy. Continue Decadron 20 mg x 5 days and 10 mg x 10 days. Given his past significant barotrauma with pneumomediastinum, have been trying to avoid additional prone positioning at this point time. Current vent settings AC 34/300/14/100- changed to ACPC Pi 34 Ti1.1 target higher minute ventilation if possible. Plateau pressures on the settings were 36-38. Most recent blood gas 7.35/97/54 He has a delta of 43 on his EtCO2 which is consistent with large space ventliaton. P/F ratio <100, very poor lung compliance and desaturation with turning. The patient is not an ECMO candidate. Palliative care discussions have been undertaken but the family we have progressed to DNR status. Day 19 of admission. Day #12 of being intubated. Continue permissive hypercapnia and try and keep pH above 7.1. He has failed inhaled epoprostenol. He is not a candidate to consider tracheostomy until his FiO2 and PEEP are significantly weaned, and he is not a candidate for sedation vacation or SBT. Cardiovascular: Continuing to attempt to keep the patient on the dry side.. Continue Lasix Gastrointestinal: Continue trophic tube feeding. Continue pantoprazole 40 mg NGT daily. Renal: Continue diuresis. remains with Lasix to twice daily dosing. Electrolyte replacement protocol ordered. Acid-base status as noted above in pulmonary. Infectious disease: Continues to be febrile. Blood cultures from 04/07 2 out of 2 gram-positive cocci in clusters. Surveillance cultures from 04/09 are no growth to date. Day #4 cefepime and vancomycin. CRP down trending, PCT 1.32, repeate surveillance cultures today. Hematologic: No issues. Hemoglobin remained stable Endocrine: ICU for hyperglycemia management. Lines and tubes: IJ, arterial lne and ETT placed 03/31/21,- Replaced 04/10/21- continue use of these lines cancino to gravity, and OGT - continue use of these lines VTE prophylaxis: Lovenox 40 mg SQ daily CODE STATUS: FULL CODE Disposition: Remain in ICU. I spoke with the family including the sister and the daughter. They state they are unwilling or incapable of making a decision regarding addressing CODE STATUS and want him to remain a full code. There is no state of mind to consider withdrawal of efforts. I advised them that the current situation appears to be consistent with a very poor functional prognosis. They request that we continue to maintain all efforts acknowledging that they may not have a positive outcome. I have personally spent 60 minutes of critical care time in the direct management of this patient. This is a life/limb threatening event. This includes time spent evaluating patient, direct bedside care, chart review, placing orders, interpretation of diagnostic studies, discussion with consultants, patient, and family members, as well as other required patient management activities. This time is exclusive of all separately billable procedures, and teaching time and separate from and in addition to any other critical care service time. Admission and Anticipated Discharge Date Admission Date: March 22, 2021 Subjective Patient discussed on multidisciplinary rounds and rounded on in the [facility] ICU. Patient is HD#20 and ICU day intubated #12, Patient with elevation of his PaCO2 to greater than 100 this morning and elevation of his Pplt pressures to 38-40- his CXR from 0700 is without pneumothorax and his ETT is without secretions. He was not fully paralyzed this morning. Patient was re-bloused with paralytics to a TOF of 0/4 with no change in his PaCO2 or his Pplt pressure. He was changed to ACPC with Pi of 32. His repeat ABG revealed a lowering of his PaCO2 to 97 and PH to 2.35 but decrease in his Pa02 to 54. Patient is in late stage fibrotic ARDS with difficulty ventilating and oxygenating. Patient will remain fully paralyzed and sedated and continue full ventilatory support. If unable to maintain nervimuscular blockade with regular infusion will move to high dose Nimbex rate for ARDS as ventilation and oxygenation is crucial at this time. Continue with Cefepime and Vancomycin. Will repeat cultures for surveillance today. Lines were changed out yesterday. Patient remains severely ill with high mortality. Had very long discussion with the family- sister (Alan) and daughter (Cassi)- in regards to his current illness, decrease in response to therapy on the ventilator and today now with difficulty ventilating and oxygenating him, If unable to correct his hypercarbia acidosis will ensue and will result in cardiac arrest and/or further hypoxia. This may still occur even if able to correct his PaCO2. We discussed in depth lung compliance what happens when we they can't perform gas exchange for ventilation and oxygention. We also discussed that if he were to arrest and our attempts at resuscitating him and his lungs not being able to participate in gas exchange he will continue to go into cardiac arrest and he is on life support with sedation, paralytics, and full vent support at this time. Patient was converted to DNR. We have started the process with SHEA Juarez for possible end of life visitation as this may occur within the next 24- 48 hours, this may be sooner or later. Will attempt the above conversion to pressure control ventilation and closely follow. Daughter will be able to visit with this evening, cleared with SHEA Juarez and Clinical supervisors. I will be present to assist her with her questions and visitation. Patient prognosis remains very poor. Review of Systems Review of Systems: Unable to perform secondary to intubation and sedation Physical Exam Physical Exam: PHYSICAL EXAM: N: CAM ICU unable to test, Sedated and pharmacological paralyzed for mechanical ventilation compliance- TOF 4/4- re-boluse with Cisatracurium- now 0/4 Neuro: Sedated paralyzed, Pupils equal and sluggish bilaterally Chest: equal rise and fall of the chest, no accessory muscle use, no heaves or thrills, scattered rhonchi bilaterally throughout to auscultation, mechanically ventilated Cardiac: Regular rate and rhythm, telemetry reviewed, skin warm dry, cap refill <3 seconds, peripheral pulses +2 no JVD, no murmur, GI: NABS x 4 quadrants, soft, nontender to palpation, no rebound, guarding or tenderness : Cancino to gravity draining geeta urine Extremities: Normal inspection, no peripheral edema or erythema, calfs nontender to palpation, subq to upper chest is resolved Psych: unable to assess Results & Data Results & Data ([facility]) Vital Signs (Past 12 Hours) Vital Signs Temp Pulse Resp BP Pulse Ox 04/11/21 08:34 37.8 C H 04/11/21 07:59 113 H 34 H 92 04/11/21 06:30 120 H 34 H 93 04/11/21 06:00 37.7 C H 117 H 34 H 129/81 93 04/11/21 05:30 115 H 34 H 92 04/11/21 05:00 37.7 C H 116 H 34 H 124/79 90 04/11/21 04:30 117 H 34 H 86 L 04/11/21 04:00 115 H 34 H 118/76 90 04/11/21 03:47 113 H 34 H 93 04/11/21 03:30 114 H 34 H 93 04/11/21 03:00 37.8 C H 115 H 34 H 119/70 93 04/11/21 02:30 117 H 34 H 93 04/11/21 02:00 37.9 C H 119 H 34 H 111/72 92 04/11/21 01:30 120 H 35 H 92 04/11/21 01:00 37.9 C H 123 H 35 H 141/88 H 92 04/11/21 00:30 123 H 36 H 92 Laboratory Results Abnormal lab results 04/10/21 04/10/21 04/11/21 Range/Units 16:32 23:53 03:52 RBC (4.7-6.1) M/uL Hgb (14.0-18.0) g/dL Hct (42-52) % MCHC (32-36) g/dL RDW Std Deviation (36.4-46.3) fL Plt Count (130-400) K/uL Immature Gran # (Auto) (0.00-0.02) K/uL POC pH 7.28 L (7.35-7.45) POC pCO2 112 H (35-46) mmHg POC pO2 78 L (80-95) mmHg POC HCO3 53 H (19-24) rowdy/L POC Total CO2 > 50 H* (24-31) mmol/L POC Base Excess 26.0 H (-9-1.8) rowdy/L POC ABG O2 Sat (90-95) % Chloride (98-107) mmol/L Carbon Dioxide (21-32) mmol/L Anion Gap (3-11) BUN (7-18) mg/dl BUN/Creatinine Ratio (10-20) Glucose (70-99) mg/dl POC Glucose 183 H 134 H (70-99) mg/dl C-Reactive Protein (0-0.29) mg/dl Procalcitonin (0-0.5) ng/ml 04/11/21 04/11/21 04/11/21 Range/Units 05:54 05:54 05:54 RBC 3.77 L (4.7-6.1) M/uL Hgb 11.5 L (14.0-18.0) g/dL Hct 36.3 L (42-52) % MCHC 31.7 L (32-36) g/dL RDW Std Deviation 47.3 H (36.4-46.3) fL Plt Count 127 L (130-400) K/uL Immature Gran # (Auto) 0.05 H (0.00-0.02) K/uL POC pH (7.35-7.45) POC pCO2 (35-46) mmHg POC pO2 (80-95) mmHg POC HCO3 (19-24) rowdy/L POC Total CO2 (24-31) mmol/L POC Base Excess (-9-1.8) rowdy/L POC ABG O2 Sat (90-95) % Chloride 94 L (98-107) mmol/L Carbon Dioxide 51 H* (21-32) mmol/L Anion Gap -3.0 L (3-11) BUN 46 H (7-18) mg/dl BUN/Creatinine Ratio 46.4 H (10-20) Glucose 134 H (70-99) mg/dl POC Glucose (70-99) mg/dl C-Reactive Protein 7.30 H (0-0.29) mg/dl Procalcitonin 1.32 H (0-0.5) ng/ml 04/11/21 04/11/21 04/11/21 Range/Units 05:57 11:00 11:24 RBC (4.7-6.1) M/uL Hgb (14.0-18.0) g/dL Hct (42-52) % MCHC (32-36) g/dL RDW Std Deviation (36.4-46.3) fL Plt Count (130-400) K/uL Immature Gran # (Auto) (0.00-0.02) K/uL POC pH 7.28 L (7.35-7.45) POC pCO2 113 H (35-46) mmHg POC pO2 64 L (80-95) mmHg POC HCO3 53 H (19-24) rowdy/L POC Total CO2 > 50 H* (24-31) mmol/L POC Base Excess 27.0 H (-9-1.8) rowdy/L POC ABG O2 Sat 86.0 L (90-95) % Chloride (98-107) mmol/L Carbon Dioxide (21-32) mmol/L Anion Gap (3-11) BUN (7-18) mg/dl BUN/Creatinine Ratio (10-20) Glucose (70-99) mg/dl POC Glucose 121 H 137 H (70-99) mg/dl C-Reactive Protein (0-0.29) mg/dl Procalcitonin (0-0.5) ng/ml 04/11/21 Range/Units 12:07 RBC (4.7-6.1) M/uL Hgb (14.0-18.0) g/dL Hct (42-52) % MCHC (32-36) g/dL RDW Std Deviation (36.4-46.3) fL Plt Count (130-400) K/uL Immature Gran # (Auto) (0.00-0.02) K/uL POC pH (7.35-7.45) POC pCO2 94 H (35-46) mmHg POC pO2 51 L (80-95) mmHg POC HCO3 53 H (19-24) rowdy/L POC Total CO2 > 50 H* (24-31) mmol/L POC Base Excess 27.0 H (-9-1.8) rowdy/L POC ABG O2 Sat 81.0 L (90-95) % Chloride (98-107) mmol/L Carbon Dioxide (21-32) mmol/L Anion Gap (3-11) BUN (7-18) mg/dl BUN/Creatinine Ratio (10-20) Glucose (70-99) mg/dl POC Glucose (70-99) mg/dl C-Reactive Protein (0-0.29) mg/dl Procalcitonin (0-0.5) ng/ml Diagnostic Findings XR chest 1V portable CLINICAL HISTORY: Hypoxia TECHNIQUE: Single frontal radiograph of the chest was obtained. Comparison: Comparison is made to chest one view 04/10/2021 FINDINGS: Lines and tubes are stable. The cardiomediastinal silhouette is normal. Multifocal airspace opacities are seen. No evidence of pleural effusion or pneumothorax. IMPRESSION: Multifocal airspace opacities are unchanged from prior exam Coding Level of Care Code Critical Care 1st 30-74 mins Diagnoses Hypoxia R09.02 Pneumonia due to 2019 novel coronavirus U07.1; J12.82
[2021-04-11 12:22] LABS: iSTAT Arterial Blood Gas HCO3 53 meg/L (19-24); iSTAT Arterial Blood Gas pCO2 94 mmHg (35-46); iSTAT Arterial Blood Gas pH 7.36 (7.35-7.45); iSTAT Arterial Blood Gas pO2 51 mmHg (80-95); iSTAT Carbon Dioxide > 50 mmol/L (24-31); iSTAT FiO2 100 %; iSTAT Site Art Line
[2021-04-11] MEDS: SODIUM CHLORIDE 0.9% IV SCH ×2 (12:55→16:55)
[2021-04-11] MEDS: CISATRACURIUM BESYLATE IV SCH ×2 (12:55→16:55)
[2021-04-11] MEDS: NOREPINEPHRINE/D5W 8 MG/508 ML BAG IV SCH (12:57)
[2021-04-11] MEDS: PEPTAMEN INTENSE VHP 1.0 CAL 1,000 ML BAG GT SCH (14:45)
--- NOTE | 2021-04-11 15:39 | Hospitalist Progress Note ---
Date of Service April 11, 2021 Assessment & Plan (1) Pneumonia due to 2019 novel coronavirus: (2) Hypoxia: (3) Acute respiratory failure with hypoxia: Plan: per Dr. Diop's notes with addendum: (1) Pneumonia due to 2019 novel coronavirus: (2) Acute respiratory failure with hypoxia: Plan: Acute hypoxic respiratory failure COVID-19 Community-acquired pneumonia Not vaccinated against Covid, signs and symptoms since 16 days. Extensive pneumomediastinum --CTA:Cardiomegaly without pulmonary emboli. Extensive bilateral pulmonary opacities compatible with viral pneumonia. Mild reactive mediastinal adenopathy. -Completed empiric Rocephin course weaned off of Pressor s/p intubation 03/31 Patient not a candidate for ECMO as per critical care remainson FiO2 100% Vent management as per ICU team Patient still on neuromuscular blockade for ventilator asynchrony Completed dexamethasone On tube feeds On Lovenox for DVT prophylaxis Transition to DNR status Fever, Staphylococcus lugdunensis bacteremia blood culture: Staph lugdunensis repeat blood culture: Negative so far Vancomycin day #4 TTE: No signs of vegetation noted JOHNNA unknown baseline, unknown if h/o CKD Creatinine levels normalized stable Hyperkalemia Resolved Monitor BMP Hepatic Steatosis Transaminitis Transaminitis likely secondary to Covid LFTs trended down DVT Px: Lovenox SQ CODE STATUS: Full Code Admission and Anticipated Discharge Date Admission Date: March 22, 2021 Subjective Follow-up for acute hypoxic respiratory failure, COVID-19 pneumonia, etc. Seen at the bedside, sedated, intubated Not in distress, no signs of pain No other issues per supervisor hot dip plating of Systems Review of Systems: all noted and negative except for above Physical Exam Physical Exam: General-sedated, breathing without effort or accessory muscle use Eyes- anicteric Neck- no JVD Lungs-positive mild crackles bilaterally, no wheezing Heart- normal rate, regular rhythm; no murmurs Abdomen- normal bowel sounds, nondistended, soft, nontender Extremities- no pretibial edema, no calf tenderness Neuro-sedated Skin- warm & dry Results & Data Results & Data ([facility]) Vital Signs (Past 12 Hours) Vital Signs Temp Pulse Resp BP Pulse Ox 04/11/21 15:10 38 H 04/11/21 13:00 38 C H 113 H 34 H 95/64 L 90 04/11/21 12:30 117 H 34 H 88 L 04/11/21 12:00 119 H 34 H 103/71 88 L 04/11/21 11:30 123 H 34 H 85 L 04/11/21 11:00 125 H 34 H 117/82 90 04/11/21 10:30 131 H 34 H 90 04/11/21 10:00 123 H 34 H 130/83 90 04/11/21 09:30 119 H 34 H 91 04/11/21 09:00 116 H 34 H 124/80 92 04/11/21 08:34 37.8 C H 04/11/21 08:30 115 H 34 H 92 04/11/21 08:00 117 H 34 H 119/75 92 04/11/21 07:59 113 H 34 H 92 04/11/21 07:30 118 H 34 H 92 04/11/21 07:00 120 H 34 H 108/70 91 04/11/21 06:30 120 H 34 H 93 04/11/21 06:00 37.7 C H 117 H 34 H 129/81 93 04/11/21 05:30 115 H 34 H 92 04/11/21 05:00 37.7 C H 116 H 34 H 124/79 90 04/11/21 04:30 117 H 34 H 86 L 04/11/21 04:00 115 H 34 H 118/76 90 04/11/21 03:47 113 H 34 H 93 all noted and reviewed including below
[2021-04-11] MEDS ORDERED: CISATRACURIUM BOLUS FROM BAG IV STA (16:29)
--- NOTE | 2021-04-11 19:43 | Communication Note ---
Date of Service: April 11, 2021 Patient's daughter Cassi was granted visitation with her father through [facility] as we discussed today the severity of her Father's illness and further deterioation overnight as far as lung compliance and maximal ventilator settings. I was present to discuss her father's case with her to assist her in having a better understanding of her father's poor prognosis. We reviewed his CT scan from admission and his Chest Xray from today that continues to show severe disease, with mostly space ventilation requiring maximal ventilation support. We reviewed his pneumomediastinum that he had early in his intubation. We reviewed him already receiving high dose steroids for ARDS, failure of inhaled Flolan therapy, antibiotic continue, and completed Remdisivir. We then went into the room, discussed the ventilator support and the numbers on the ventilator showing his poor lung compliance secondary to late stage fibrotic ARDS from COVID 19. She is in full understanding that there is no more pulmonary support that we can offer as well as his chance of coming off a ventilator ever even if he survives this is likely not a possibility. We reviewed his length of stay and again if he would survive this, he would have a poor functional capacity to take care of himself let alone the amount of rehab and work needed to be able to walk or get dressed. She voiced understanding. I voiced to her that her father would likely not leave the hospital alive and that he would either succumb to infection, multiorgan dysfunction, hypoxia and/or the lack of ability to further ventilate him. She understands that he is currently on maximal therapy for sedation/paralysis and ventilator support. The decision was made at 1999 to move toward palliative extubation. Paralytics will be discontinued. Sedation will be weaned down and will extubate when paralytic worn off and family ready. I updated the primary service news camera person. Mark BELLE ([facility]) Additional 40 minutes of prolonged service time was spent reviewing patient information with family, real time discussion with end of life process with the family. Coding Level of Care Code 56567 Prolonged Care (int'l)
[2021-04-11] MEDS ORDERED: ONDANSETRON INJ 2 MG/ML 2 ML VIAL IV PRN (20:06)
[2021-04-11] MEDS ORDERED: MoRPHine SULFATE 5 MG/0.25 ML UDP PO PRN (20:06)
[2021-04-11] MEDS ORDERED: LORazepam 0.5 MG TAB PO PRN (20:06)
[2021-04-11] MEDS ORDERED: ONDANSETRON 4 MG OD TAB SL PRN (20:06)
[2021-04-11] MEDS ORDERED: LORazepam 0.5 MG/1 ML VIAL IV PRN (20:06)
[2021-04-11] MEDS ORDERED: MIDAZOLAM BOLUS FROM BAG IV PRN (20:13)
[2021-04-11] MEDS: MoRPHine SULFATE 4 MG/ML 1 ML CARP\\VIAL IV PRN ×2 (21:24→21:44)
--- NOTE | 2021-04-12 00:25 | Death Pronouncement Note ---
Date of Service April 12, 2021 Pronouncement Note Admission Date Admission Date: March 22, 2021 Date and Time of Date of : 04/11/21 Time of : 21:48 Contributing Factors (1) Pneumonia due to 2019 novel coronavirus: (2) Hypoxia: (3) Acute respiratory failure with hypoxia: Additional Data Confirmation of : no pulse, no respirations, no heart sounds and pupils fixed and dilated Attending physician: Haim Sanchez MD
[2021-04-13] MEDS ORDERED: VANCOMYCIN TROUGH ONE (09:30)
== END 2021-04-12 00:54 | disposition expired | DRG 207 ==
LOC: ED 09:26 → SUATTDRO 14:11 → EDINP 14:11 → 2S 03-23 01:57 → 2E 03-23 08:49